=== PATIENT | female | born 1980 | race Caucasian/White ===

== ENCOUNTER 2018-09-02 20:37 | Emergency (ER) | payer MEDICAID ==
[~2018-09-02] VITALS: Ht 162.6 cm; Wt 102.5 kg
[~2018-09-02 20:37] MED LIST: ACHD5005 PO; ALBU17AE3 IH; ALPR.25T PO; ALPR.5T PO; ALPR1T PO; BACL10TA PO; BENZ100C18 PO; CARB100T6 PO; CEFP250T2 PO; CEFP500T4 PO; CEPH-507 PO; CEPH500C PO; CIPR-225 PO; CIPR500T78 PO; CLC500CT PO; CLON0.5T2 PO; CLON0.5T3 PO; CYCL10TA9 PO; DICY20TA57 PO; DOCU100C37 PO; DULO30CA PO; EFFEXOR; ESCI10TA48 PO; FAMO-106 PO; FLUO40CA PO; GABA-488 PO; GFN600TCR PO; HCT25T PO; HYDR-1231 PO; HYDR-2890 PO; HYDR-34 PO; HYDR-3720; HYDR-3720 PO; HYDR-623 PO; HYDR118S10 PO; HYDR1CAP2 PO; HYDR1TAB PO; HYDR1TAB8 OP; IBUP-1773 PO; LMT25T PO; LORA-404 PO; LORA10CA PO; LRT10T PO; LURA80TA PO; METH4TAB PO; METR500T PO; MONISTAT7 VG; MPR22T TP; NAPR-243 PO; NAPR550T PO; NITR-65 PO; OLAN10TA4 PO; ONDA-42 SL; ONDA4TAB8 PO; ONDA4TAB8 SL; ONDA8TAB13 PO; ONDA8TAB9 PO; OXYC15TA73; OXYC1TAB87 PO; OXYC20TA14 PO; OXYC20TA4 PO; OXYC40TA49 PO; PARO10TA81 PO; PARO40TA2 PO; PHEN200T27 PO; PHEN37.555 PO; POTASS PO; PRAZ1CAP2 PO; PRAZ2CAP2 PO; PRD5T PO; PRM25T PO; PROM25TA14 PO; QUET50TA49 PO; RISP2TAB3 PO; RNT150T PO; Risperdal; SIME80TA16 PO; SULF1TAB35 PO; SULF1TAB38 PO; TRAM50TA2 PO; TRAZ150T72 PO; TRZ50T PO; Throat Lozenges MT; ZLP10T PO; ZLP5T PO; [UNRECOGNIZED DRUG - REMARK]
[2018-09-02 23:04] LABS: BILIRUBIN,URINE NEGATIVE (NEGATIVE); CLARITY,URINE CLEAR; COLOR,URINE YELLOW; GLUCOSE, URINE (UA) NEGATIVE (NEGATIVE); KETONES,URINE NEGATIVE (NEGATIVE); LEUKOCYTE ESTERASE ,URINE NEGATIVE (NEGATIVE); NITRITE,URINE NEGATIVE (NEGATIVE); PH,URINE 6 (5-9); PROTEIN,URINE 1+ (NEGATIVE); UROBILINOGEN,URINE NORMAL (NORMAL)
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
[2018-09-02 23:18] LABS: BACTERIA,URINE LARGE /HPF; SQUAMOUS EPITHELIAL CELL,UR TNTC /HPF
[2018-09-02 23:45] VITALS: BP 138/99
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
== END 2018-09-02 23:46 | disposition home or self-care (01) ==
LOC: EDUNIT# 20:37 → ER 20:40
DX: S09.90XA Unspecified injury of head, initial encounter (principal); G43.909 Migraine, unspecified, not intractable, without status migrainosus; E11.9 Type 2 diabetes mellitus without complications; F32.9 Major depressive disorder, single episode, unspecified; R40.2142 Coma scale, eyes open, spontaneous, at arrival to emergency department; R40.2252 Coma scale, best verbal response, oriented, at arrival to emergency department; R40.2362 Coma scale, best motor response, obeys commands, at arrival to emergency department; F17.210 Nicotine dependence, cigarettes, uncomplicated; Z90.710 Acquired absence of both cervix and uterus; Z87.442 Personal history of urinary calculi; Z82.49 Family history of ischemic heart disease and other diseases of the circulatory system; Z80.0 Family history of malignant neoplasm of digestive organs; Z87.448 Personal history of other diseases of urinary system; Z90.89 Acquired absence of other organs; Z88.5 Allergy status to narcotic agent; Z91.041 Radiographic dye allergy status; Y08.89XA Assault by other specified means, initial encounter
CPT/HCPCS: 70450; 72125; 81000

== ENCOUNTER 2018-09-08 01:40 | Emergency (ER) | payer MEDICAID ==
[~2018-09-08] VITALS: Ht 162.6 cm; Wt 103.4 kg
[2018-09-08] MEDS ORDERED: KETOROLAC 30 MG/ML VIAL IM ONE (02:00)
[2018-09-08] MEDS ORDERED: PROMETHAZINE INJ 25 MG/ML (PHENERGAN) AMP IM ONE (02:00)
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
[2018-09-08 02:08] VITALS: BP 134/107
== END 2018-09-08 02:08 | disposition home or self-care (01) ==
LOC: EDUNIT# 01:40 → ER 01:41
DX: R51 Headache (principal); E11.9 Type 2 diabetes mellitus without complications; F32.9 Major depressive disorder, single episode, unspecified; F15.10 Other stimulant abuse, uncomplicated; F17.210 Nicotine dependence, cigarettes, uncomplicated; Z87.448 Personal history of other diseases of urinary system; Z82.49 Family history of ischemic heart disease and other diseases of the circulatory system; Z80.0 Family history of malignant neoplasm of digestive organs; Z87.442 Personal history of urinary calculi; Z90.710 Acquired absence of both cervix and uterus; Z88.5 Allergy status to narcotic agent; Z91.041 Radiographic dye allergy status
CPT/HCPCS: 84703; 96372; 99284

== ENCOUNTER 2019-01-02 17:58 | Emergency (ER) | payer MEDICAID ==
[~2019-01-02] VITALS: Ht 162.6 cm; Wt 107.0 kg
[2019-01-02] MEDS ORDERED: ONDANSETRON 4 MG/2 ML (SDV) Z0FRAN IVP ONE (18:15)
[2019-01-02] MEDS ORDERED: LACTATED RINGERS 1,000 ML IV SCH (18:15)
[2019-01-02 18:23] LABS: BASOPHILS % (AUTO) 0 % (0-10); EOSINOPHILS # (AUTO) 0.3 10^3/uL (0.0-0.3); EOSINOPHILS % (AUTO) 2 % (0-10); HEMATOCRIT 38 % (35-52); HEMOGLOBIN 12.6 G/DL (11.5-16.0); LYMPHOCYTES % (AUTO) 22 % (12-44); MEAN CORPUSCULAR HEMOGLOBIN 31 PG (25-34); MEAN CORPUSCULAR HGB CONC 33 G/DL (32-36); MEAN CORPUSCULAR VOLUME 92 FL (80-99); MEAN PLATELET VOLUME 9.5 FL (7.4-10.4); MONOCYTES % (AUTO) 7 % (0-12); NEUTROPHILS # (AUTO) 9.6 X 10^3 (1.8-7.8); NEUTROPHILS % (AUTO) 69 % (42-75); PLATELET COUNT 381 10^3/uL (130-400); RED CELL DISTRIBUTION WIDTH 13.1 % (10.0-14.5); WHITE BLOOD COUNT 13.8 10^3/uL (4.3-11.0)
--- NOTE | 2019-01-02 18:36 | ED Abdominal Pain ---
General Chief Complaint: Abdominal/GI Problems Stated Complaint: VOMITING,BODY ACHES Source of Information: Patient Exam Limitations: No Limitations History of Present Illness Date Seen by Provider: Jan 02, 2019 Time Seen by Provider: 18:35 Initial Comments To ER with reports of nausea without vomiting since yesterday, body aches. She has left breast redness and swelling after injecting methamphetamine into one of the veins on her breast 3-4 days ago. Timing/Duration: 1-2 Days Severity/Quality: Moderate Radiation: No Radiation Activities at Onset: None Associated Symptoms: No Fever/Chills; Nausea/Vomiting Allergies and Home Medications Allergies Coded Allergies: codeine (Verified Allergy, Unknown, NAUSEA, 01/10/16) Iodinated Contrast Media - IV Dye (Verified Adverse Reaction, Mild, ITCHING, 12/09/11) Home Medications Cephalexin 500 Mg Capsule, 500 MG PO QID Prescribed by: CHARITY HOOKER on 01/02/191932 Gabapentin 300 Mg Capsule, 300 MG PO TID, (Reported) Hydrocodone/Acetaminophen 1 Each Tablet, 1 EACH PO Q6H PRN for PAIN-MODERATE Do not fill unless Bactrim and Keflex is also filled Prescribed by: CHARITY HOOKER on 01/02/191932 Paroxetine HCl 10 Mg Tablet, 40 MG PO DAILY, (Reported) Promethazine HCl 25 Mg Tablet, 25 MG PO Q8H PRN for NAUSEA/VOMITING Prescribed by: KYLER OSEGUERA on 07/12/16 1309 Sulfamethoxazole/Trimethoprim 1 Each Tablet, 1 EACH PO BID Prescribed by: CHARITY HOOKER on 01/02/191932 Patient Home Medication List Home Medication List Reviewed: Yes Review of Systems Review of Systems Constitutional: see HPI, malaise EENTM: No Symptoms Reported Respiratory: No Symptoms Reported Cardiovascular: No Symptoms Reported Gastrointestinal: See HPI, Nausea, Vomiting Genitourinary: No Symptoms Reported Musculoskeletal: no symptoms reported Skin: see HPI Psychiatric/Neurological: No Symptoms Reported Endocrine: No Symptoms Reported Past Pibfjim-Lezekp-Zgquja Hx Patient Social History Alcohol Use: Denies Use Recreational Drug Use: Yes (PREVIOUS IV METH) Drug of Choice: Meth Smoking Status: Current Everyday Smoker Type Used: Cigarettes 2nd Hand Smoke Exposure: Yes Recent Foreign Travel: No Contact w/Someone Who Travel: No Recent Hopitalizations: No () Physical Abuse: No Sexual Abuse: No Mistreated: No Fear: No Immunizations Up To Date Tetanus Booster (TDap): Less than 5yrs Date of Pneumonia Vaccine: Aug 26, 2014 Date of Influenza Vaccine: Nov 09, 2015 Seasonal Allergies Seasonal Allergies: No Past Medical History Surgeries: Yes (CYST OFF WRIST, CYST OFF OVARY) Adenoidectomy, Hysterectomy, Tonsillectomy Respiratory: No Cardiac: No Neurological: No Headaches /Migraines Reproductive Disorders: No 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 Gastrointestinal: No Musculoskeletal: No Degenerate Disk Disease, Back Injury, Chronic Back Pain Endocrine: No Diabetes, Non-Insulin dep Cancer: No Psychosocial: Yes Depression Integumentary: No Blood Disorders: No Family Medical History Alcoholism 19 FATHER 19 MOTHER Arthritis 19 MOTHER GRANDPARENTS Cardiovascular disease GRANDPARENTS Colon cancer GRANDPARENTS Diabetes mellitus 19 MOTHER Drug abuse 19 FATHER 19 MOTHER G8 BROTHER Myocardial infarction GRANDPARENTS No Pertinent Family Hx Physical Exam Vital Signs Vital Signs - First Documented 01/02/19 18:26 Temp 97.8 Pulse 78 Resp 20 B/P (MAP) 128/86 (100) Pulse Ox 99 Capillary Refill : Height/Weight/BMI Height: 5'4.00" Weight: 228lbs. 5.0oz. 103.478868yd; 39.60 BMI Method:Stated General Appearance: WD/WN, no apparent distress HEENT: PERRL/EOMI, normal ENT inspection Neck: non-tender, full range of motion Respiratory: no respiratory distress, no accessory muscle use Cardiovascular: regular rate, rhythm, no murmur Gastrointestinal: normal bowel sounds, non tender, soft, other Extremities: normal range of motion, non-tender Neurologic/Psychiatric: alert, normal mood/affect, oriented x 3 Skin: normal color, warm/dry, other (left breast at about the 9:00 to 12:00 position is erythematous. This is about 2 cm superior and medial to the superior and medial border of the areola. This area of erythema measures about 14 x 12 cm. Within the middle is a palpable area of fluctuance.) Exam Comments During the entire breast exam and during the incision and drainage procedure, Myra MURRAY was at the bedside. Procedures/Interventions I&D : Blade Size: 11 Packing/Drain: 1/4 [place] Drain Progress Area over the maximum fluctuance was anesthetized with 3 mL of 1% lidocaine without epinephrine. An 11 blade scalpel was then used to make an incision over this area. A large amount of serosanguineous and not terribly purulent looking material expressed. Culture of this was collected and sent to lab. Any loculations were broken up with curved hemostat. Area was irrigated with 20 mL of iodine/saline solution. We do not have a [place] drain available at this time so a section of 16 [place] Espinal catheter was cut and placed into the wound to serve as a drain. This was sutured into place with 1 size 4-0 Ethilon. Progress/Results/Core Measures Results/Orders Lab Results Laboratory Tests Test 01/02/19 18:16 01/02/19 19:43 Range/Units White Blood Count 13.8 H 4.3-11.0 10^3/uL Red Blood Count 4.09 L 4.35-5.85 10^6/uL Hemoglobin 12.6 11.5-16.0 G/DL Hematocrit 38 35-52 % Mean Corpuscular Volume 92 80-99 FL Mean Corpuscular Hemoglobin 31 25-34 PG Mean Corpuscular Hemoglobin Concent 33 32-36 G/DL Red Cell Distribution Width 13.1 10.0-14.5 % Platelet Count 381 130-400 10^3/uL Mean Platelet Volume 9.5 7.4-10.4 FL Neutrophils (%) (Auto) 69 42-75 % Lymphocytes (%) (Auto) 22 12-44 % Monocytes (%) (Auto) 7 0-12 % Eosinophils (%) (Auto) 2 0-10 % Basophils (%) (Auto) 0 0-10 % Neutrophils # (Auto) 9.6 H 1.8-7.8 X 10^3 Lymphocytes # (Auto) 3.0 1.0-4.0 X 10^3 Monocytes # (Auto) 1.0 0.0-1.0 X 10^3 Eosinophils # (Auto) 0.3 0.0-0.3 10^3/uL Basophils # (Auto) 0.0 0.0-0.1 10^3/uL Sodium Level 138 135-145 MMOL/L Potassium Level 4.2 3.6-5.0 MMOL/L Chloride Level 102 98-107 MMOL/L Carbon Dioxide Level 24 21-32 MMOL/L Anion Gap 12 5-14 MMOL/L Blood Urea Nitrogen 17 7-18 MG/DL Creatinine 0.66 0.60-1.30 MG/DL Estimat Glomerular Filtration Rate > 60 BUN/Creatinine Ratio 26 Glucose Level 90 70-105 MG/DL Calcium Level 9.1 8.5-10.1 MG/DL Corrected Calcium 9.0 8.5-10.1 MG/DL Total Bilirubin 0.7 0.1-1.0 MG/DL Aspartate Amino Transf (AST/SGOT) 14 5-34 U/L Alanine Aminotransferase (ALT/SGPT) 15 0-55 U/L Alkaline Phosphatase 60 40-136 U/L Total Protein 6.9 6.4-8.2 GM/DL Albumin 4.1 3.2-4.5 GM/DL Serum Test, Qualitative NEGATIVE NEGATIVE Urine Color YELLOW Urine Clarity VERY CLOUDY H Urine pH 5 5-9 Urine Specific [place] 1.025 H 1.016-1.022 Urine Protein 2+ H NEGATIVE Urine Glucose (UA) NEGATIVE NEGATIVE Urine Ketones 1+ H NEGATIVE Urine Nitrite NEGATIVE NEGATIVE Urine Bilirubin NEGATIVE NEGATIVE Urine Urobilinogen NORMAL NORMAL MG/DL Urine Leukocyte Esterase 1+ H NEGATIVE Urine RBC (Auto) NEGATIVE NEGATIVE Urine RBC NONE /HPF Urine WBC 2-5 /HPF Urine Squamous Epithelial Cells 25-50 H /HPF Urine Crystals NONE /LPF Urine Bacteria FEW H /HPF Urine Casts NONE /LPF Urine Mucus LARGE H /LPF Urine Culture Indicated NO Urine Opiates Screen NEGATIVE NEGATIVE Urine Oxycodone Screen NEGATIVE NEGATIVE Urine Methadone Screen NEGATIVE NEGATIVE Urine Propoxyphene Screen NEGATIVE NEGATIVE Urine Barbiturates Screen NEGATIVE NEGATIVE Ur Tricyclic Antidepressants Screen NEGATIVE NEGATIVE Urine Phencyclidine Screen NEGATIVE NEGATIVE Urine Amphetamines Screen POSITIVE H NEGATIVE Urine Methamphetamines Screen POSITIVE H NEGATIVE Urine Benzodiazepines Screen NEGATIVE NEGATIVE Urine Cocaine Screen NEGATIVE NEGATIVE Urine Cannabinoids Screen NEGATIVE NEGATIVE My Orders Orders - CHARITY HOOKER APRN Ua Culture If Indicated (01/02/19 18:07) Cbc With Automated Diff (01/02/19 18:07) Hcg,Qualitative Serum (01/02/19 18:07) Drug Screen Stat (Urine) (01/02/19 18:07) Comprehensive Metabolic Panel (01/02/19 18:07) Iv Heplock-Insert (Order) (01/02/19 18:07) Lactated Ringers (Lr 1000 Ml Iv Solution (01/02/19 18:15) Ondansetron Injection (Zofran Injectio (01/02/19 18:15) Wound Culture (01/02/19 19:05) Blood Culture (01/02/19 19:06) Ceftriaxone For Iv Use (Rocephin For I (01/02/19 19:15) Sulfamethoxazole/Trimet Ds Tab (Bactrim (01/02/19 19:15) Rx-Hydrocodone/Apap 5-325 Mg (Rx-Vicodin (01/02/19 19:45) Rx-Ondansetron Po (Rx-Zofran Po) (01/02/19 20:50) Medications Given in ED Current Medications Medications Dose Ordered Sig/Blanca Route Start Time Stop Time Status Last Admin Dose Admin Acetaminophen/ Hydrocodone Bitart 1 ea Q4H PRN PO 01/02/19 19:45 01/02/19 19:56 1 EA Ceftriaxone Sodium 1000 mg/ Sterile Water 10 ml @ 200 mls/hr ONCE ONCE IV 01/02/19 19:15 01/02/19 19:17 DC 01/02/19 20:30 200 MLS/HR Ondansetron HCl 4 mg STK-MED ONCE .ROUTE 01/02/19 20:50 01/02/19 20:55 DC 01/02/19 20:59 4 MG Ondansetron HCl 8 mg ONCE ONCE IVP 01/02/19 18:15 01/02/19 18:16 DC 01/02/19 18:22 8 MG Trimethoprim/ Sulfamethoxazole 1 ea ONCE ONCE PO 01/02/19 19:15 01/02/19 19:16 DC 01/02/19 20:30 1 EA Vital Signs/I&O 01/02/19 18:26 Temp 97.8 Pulse 78 Resp 20 B/P (MAP) 128/86 (100) Pulse Ox 99 Departure Impression Primary Impression: Cellulitis of breast Additional Impression: Abscess of breast Disposition: HOME, SELF-CARE Condition: Stable Departure-Patient Inst. Decision time for Depature: 19:30 Referrals: [facility] (PCP/Family) Primary Care Physician Patient Instructions: Cellulitis (Skin Infection), Adult (DC) Add. Discharge Instructions: 1. Return to ER for any concerns 2. Return to the emergency room on Sunday or recheck. Return to ER before then if you develop high fevers or other worsening symptoms. Expect to have to change the dressing several times daily in the meantime, we expect drainage from this. The drainage should change from bloody-appearing today to a more clear liquid over the next couple of days. Return to ER if it becomes more bloody or large volume of plain blood. Return to ER for any fevers. Take the antibiotics as directed. You will need to start these tomorrow morning and this will not get better without the antibiotics. The pain medication as directed. You may shower allowing water run over this area. All discharge instructions reviewed with patient and/or family. Voiced understanding. Scripts Hydrocodone/Acetaminophen ([place] 5-325 Tablet) 1 Each Tablet 1 EACH PO Q6H PRN for PAIN-MODERATE MDD 10, #10 TAB Do not fill unless Bactrim and Keflex is also filled Prov: CHARITY HOOKER APRN 01/02/19 Cephalexin (Keflex) 500 Mg Capsule 500 MG PO QID, #28 CAP Prov: CHARITY HOOKER APRN 01/02/19 Sulfamethoxazole/Trimethoprim (Bactrim Ds Tablet) 1 Each Tablet 1 EACH PO BID, #20 TAB Prov: CHARITY HOOKER APRN 01/02/19 Images Female/Male 1 - Cellulitis, Edema CHARITY HOOKER APRN Jan 02, 2019 18:36
[2019-01-02 18:39] LABS: ALANINE AMINOTRANSFERASE 15 U/L (0-55); ALBUMIN 4.1 GM/DL (3.2-4.5); ALKALINE PHOSPHATASE 60 U/L (40-136); BILIRUBIN,TOTAL 0.7 MG/DL (0.1-1.0); BUN/CREATININE RATIO 26; CALCIUM 9.1 MG/DL (8.5-10.1); CARBON DIOXIDE 24 MMOL/L (21-32); CHLORIDE 102 MMOL/L (98-107); CREATININE SERUM 0.66 MG/DL (0.60-1.30); GFR ESTIMATED > 60; GLUCOSE 90 MG/DL (70-105); POTASSIUM 4.2 MMOL/L (3.6-5.0); SODIUM 138 MMOL/L (135-145); TOTAL PROTEIN 6.9 GM/DL (6.4-8.2)
[2019-01-02] MEDS ORDERED: TRIM/SULFAMETH 160/800 (SEPTRA DS) TAB PO ONE (19:15)
[2019-01-02] MEDS ORDERED: cefTRIAXone FOR IV USE 1,000 MG in WATER (STERILE) FOR INJECTION 10 ML IV ONE (19:15)
--- OUTSIDE RECORDS SUMMARY | 2019-01-02 19:20 | XMS REPORT ---
Author Author VICKI LOPEZ Organization [facility] Address [address] [place] [address] Care Team Providers Care Leaf Stamper Name Role Phone VICKI LOPEZ Unavailable PROBLEMS Type Condition ICD9-CM Code YOM87-SN Code Onset Dates Condition Status SNOMED Code Problem History of drug use F19.21 Active 393930144 Problem History of thyroid disorder Z86.39 Active 539098395 Problem Female stress incontinence N39.3 Active 67257731 Problem Uterine prolapse N81.4 Active 32927655 Problem Hyperlipidemia E78.5 Active 18524594 Problem BMI 40.0-44.9, adult Z68.41 Active 891781520 Problem IV drug abuse F19.10 Active Problem Essential hypertension I10 Active 21231243 Problem Neuropathy involving both lower extremities G57.93 Active 968442596 Problem 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 Active 43685930 Problem History of intravenous drug use in remission Z87.898 Active 00819003 Problem Acute mucoid otitis media of left ear H65.112 Active 90202231 ALLERGIES Substance Reaction Event Type Date Status Codeine Sulfate Unknown Drug Allergy Apr, Active ENCOUNTERS Encounter Location Date Diagnosis [facility] [id number] [place] [address] Apr, Poison lex dermatitis L23.7 and BMI 40.0-44.9, adult Z68.41 [facility] [address] [place] [address] Jan, Allergic contact dermatitis due to plants, except food L23.7 and BMI 45.0-49.9, adult Z68.42 [facility] [address] [place] [address]267 Dec, [facility] [id number] [place] [address] 14 Dec, 2017 Dysuria R30.0 ; Acute cystitis without hematuria N30.00 and BMI 45.0-49.9, adult Z68.42 [facility] [place] [id number] [place] [address]54 [address]97 Jun, Abscess L02.91 [facility] [address] [address] Jun, Acute bronchitis J20.9 ; Cellulitis of arm, right L03.113 and IV drug abuse F19.10 [facility] [address] [address] March, Cellulitis of hand, right L03.[address] [address] Jan, Neuropathy involving both lower extremities G57.93 and 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 [address] Nov, [place] [id number] [place] [address]89[address]115 Nov, Essential hypertension I10 ; History of thyroid disorder Z86.39 ; Neuropathy involving both lower extremities G57.93 ; 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 ; History of intravenous drug use in remission Z87.898 and Acute mucoid otitis media of left ear H65.112 [facility] [place] [id number] [place] [address]44 Oct, Dysuria R30.0 and Low back strain, subsequent encounter S39.012D [place] [id number] [place] [address]759- [address]64 Oct, [facility] [address] [id number] Aug, Abscess of arm, right L02.413 [facility] [address] [place] [id number] Aug, Insect bite, infected, initial encounter W57.XXXA [place] [id number] [place] [address] 16 Jun, 2016 Low back pain M54.5 ; History of drug use F19.21 and Nausea with vomiting, unspecified R11.2 [place] [id number] [place] [address]- [address] Jun, Dysuria R30.0 and Rash R21 [place] [id number] [place] [address]4785- [address]38 Nov, [place] [address] [address] Nov, Abdominal cramping R10.9 ; Low back pain M54.5 ; Dysmenorrhea N94.6 ; Urinary frequency R35.0 ; Dysuria R30.0 ; Cervical motion tenderness N94.9 ; Uterine prolapse N81.4 ; Unprotected sexual intercourse Z72.51 ; BMI 40.0-44.9, adult Z68.41 ; History of drug use F19.21 ; Right lower quadrant pain R10.31 ; Screening for malignant neoplasm of cervix Z12.4 and Routine screening for STI (sexually transmitted infection) Z11.3 [place] [id number] [place] [address] 80921- 7877 Jun, Cough 786.2 ; Tobacco abuse 305.1 ; Muscle spasm of back 724.8 and Dysuria 788.1 [place] [id number] [place] [address]53- 6758 May, [place] [address] [address] May, [place] [address] [address] May, Lumbar back pain 724.2 ; Malaise and fatigue 780.79 ; Diarrhea 787.91 ; Fever chills 780.60 and Nausea & vomiting 787.01 [place] [id number] [place] [address]78- 7457 March, [facility] [address] [address] March, [facility] [address] [address] March, Lumbar back pain 724.2 ; Insomnia 780.52 ; Depression with anxiety 300.4 ; Hypertension 401.9 and Drug addiction 304.90 [facility] [id number] [address] March, Screening for malignant neoplasm of the cervix V76.2 ; Other and unspecified hyperlipidemia 272.4 and Other specified hypoglycemia 251.1 [facility] [address] [id number] March, UTI (urinary tract infection) 599.0 [facility] [address] [address] March, [facility] [address] [address] Feb, [facility] [address] [address] Feb, [facility] [address] [address] Jan, [facility] [address] [address] Jan, [facility] [address] [address] Oct, [facility] [id number] [address] Oct, [facility] [address] [address] 8[address] Sep, [facility] [id number] [address] Sep, [facility] [address] [place] [address], [place] [address] 07 Sep, 2013 [facility] [place] [facility] [address] [id number] [place] [address] 9906 07 Sep, 2013 [facility] [place] [facility] [address] [id number] [place] 20 Aug, 2013 [facility] [place] [facility] [address] [id number] [place] [address]- 4173 20 Aug, 2013 [facility] [place] [facility] [address] [id number] [place] [address] 16 Aug, 2013 [facility] [place] [facility] [address] [id number] [place] [address]- 9026 16 Aug, 2013 [facility] [place] [facility] [address] [id number] [place] [address]- 6750 16 Aug, 2013 [facility] [place] [facility] [address] [id number] [place] [address]- 4506 16 Aug, 2013 [facility] [place] [facility] [address] [id number] [place] [address]- 4804 14 Aug, 2013 [facility] [place] [facility] [address] [id number] [place] [address]- 4766 14 Aug, 2013 [facility] [place] [facility] [address] [id number] [place] [address]- 7742 07 Aug, 2013 [facility] [place] [facility] [address] [id number] [place] [address]- 0950 07 Aug, 2013 [facility] [place] [facility] [address] [id number] [place] [address]- 6059 06 Aug, 2013 [facility] [place] [facility] [address] [id number] [place] [address]- 1466 06 Aug, 2013 [facility] [place] [facility] [address] [id number] [place] [address]- 3253 30 Jul, 2013 [facility] [place] [facility] [address] [id number] [place] [address]- 8069 30 Jul2013 [facility] [place] [facility] [address] [id number] [place] [address]- 0899 Jul, [facility] [place] [facility] [address] [id number] [place] [address] Jul, [facility] [place] [facility] [address] [id number] [place] [address]- 5134 Jan, [facility] [place] [facility] [address] [id number] [place] [address]- 4185 Dec, [facility] [place] [facility] [address] [id number] [place] [address]- 2980 Sep, [facility] [place] [facility] [address] [id number] [place] [address]- 3741 Sep, [facility] [place] [facility] [address] [facility] [id number] [place] [address]- 0112 Sep, [facility] [place] [facility] [address] [facility] [id number] [place] [address]- 1415 Aug, [facility] [place] [facility] [address] [id number] [place] [address] 1962 Aug, [facility] [place] [facility] [address] [facility] [id number] [place] [address]- 8453 Aug, [facility] [place] [facility] [address] [facility] [id number] [place] [address]- 2974 Aug, [facility] [place] [facility] [address] [id number] [place] [address]- 4286 Aug, [facility] [place] [facility] [address] [id number] [place] [address]- 0054 Jul, [facility] [place] [facility] [address] [id number] [place] [address]- 3104 18 Jul, 2012 [facility] [place] [facility] [address] [id number] [place] [address]- 3682 Jun, [facility] [place] [facility] [address] [id number] [place] [address]- 8296 May, [facility] [address] [id number] [place] [address]- 7392 Apr, [facility] [place] [facility] [address] [id number] [place] [address]- 6576 Apr, [facility] [place] [facility] [address] [id number] [place] [address]- 6416 Dec, [facility] [place] [facility] [address] [id number] [place] [address]- 9547 Nov, [facility] [address] [id number] [place] [address]- 7768 Nov, [facility] [place] [facility] [address] [id number] [place] [address]- 9445 Oct, [facility] [place] [facility] [address] [id number] [place] [address]- 3883 Oct, [facility] [place] [facility] [address] [id number] [place] [address]- 1560 Oct, [facility] [place] [facility] [address] [id number] [place] [address]- 1239 Oct, [facility] [place] [facility] [address] [id number] [place] [address]- 8641 Oct, [facility] [place] [facility] [address] [id number] [place] [address]- 7771 Oct, [facility] [place] [facility] [address] [id number] [place] [address]- 8173 Oct, [facility] [place] [facility] [address] [id number] [place] [address]- 8186 Oct, [facility] [place] [facility] [address] [id number] [place] [address]- 9207 Oct, [facility] [place] [facility] [address] [id number] [place] [address]- 9873 Sep, [facility] [place] [facility] [address] [facility] [id number] [address]- 7916 Sep, [facility] [id number] [address] Sep, [facility] [address] [address]- [address] Sep, [facility] [address] [place] [address]- [address] Aug, [facility] [address] May, [place] [address] [place] [address]87- 2725 Apr, IMMUNIZATIONS Vaccine Route Administration Date Status SOLUMEDROL (UP TO 125 MG) IM Intramuscular May 03, 2018 Administered SOCIAL HISTORY Never Assessed REASON FOR VISIT bianca Regan PLAN OF CARE Activity Details Follow Up 1 Week, prn Reason:if symptoms worsen or not improving VITAL SIGNS Height 64 in 2018-05-03 Weight 235.8 lbs 2018-05-03 Temperature 98.1 degrees Fahrenheit 2018-05-03 Heart Rate 92 bpm 2018-05-03 Respiratory Rate 20 2018-05-03 BMI 40.47 kg/m2 2018-05-03 Blood pressure systolic 122 mmHg 2018-05-03 Blood pressure diastolic 70 mmHg 2018-05-03 MEDICATIONS Medication Instructions Dosage Frequency Start Date End Date Duration Status Rexulti 0.5 MG Orally Once a day 1 tablet 24h Active Trazodone HCl 100 MG Orally Once a day 1 tablet at bedtime 24h Not -Taking Paxil 40 MG Orally Once a day 1 tablet by Oral route 1 time per day 24h Jan, 30 days Active Gabapentin 100 mg Orally Three times a day 2 capsule 8h 90 Not- Taking ProAir HFA 108 (90 Base) MCG/ACT Inhalation every 4 hrs 2 puffs as needed 4h Jun, 15 days Not-Taking HydrOXYzine HCl 50 MG Orally Once a day at night prn 1 tablet as needed 30 Not-Taking RESULTS No Results PROCEDURES Procedure Date Ordered Result Body Site SOLUMEDROL (UP TO 125 MG) May 03, 2018 THER/PROPH/DIAG INJ, SC/IM May 03, 2018 INSTRUCTIONS MEDICATIONS ADMINISTERED No Known Medications MEDICAL (GENERAL) HISTORY Type Description Date Medical History hyperlipidemia Medical History stress urinary incontinence Medical History cystocele Medical History borderline personality disorder Medical History panic and mood disorder Medical History depression Medical History PTSD Medical History hypoglycemia Medical History thyroid disorder Medical History bipolar disorder Medical History IV METH ABUSE Surgical History tonsillectomy Surgical History ovarian cyst resection Surgical History dilatation and curettage Surgical History hysterectomy(partial) and reconstruction of the bowel and bladder 12/2015 Hospitalization History surgeries
--- OUTSIDE RECORDS SUMMARY | 2019-01-02 19:20 | XMS REPORT ---
Author Author HODA WYLIE [facility] Address [address] [place] [address] Care Team Providers Care Heating Unit Mechanic Name Role Phone HODA WYLIE Unavailable PROBLEMS Type Condition ICD9-CM Code APY20-JY Code Onset Dates Condition Status SNOMED Code Problem History of drug use F19.21 Active 178024789 Problem History of thyroid disorder Z86.39 Active 732837677 Problem Female stress incontinence N39.3 Active 00847973 Problem Uterine prolapse N81.4 Active 02560943 Problem Hyperlipidemia E78.5 Active 91682504 Problem BMI 40.0-44.9, adult Z68.41 Active 146535929 Problem IV drug abuse F19.10 Active Problem Essential hypertension I10 Active 28037732 Problem Neuropathy involving both lower extremities G57.93 Active 263977964 Problem 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 Active 66523224 Problem History of intravenous drug use in remission Z87.898 Active 82217186 Problem Acute mucoid otitis media of left ear H65.112 Active 88241506 ALLERGIES Substance Reaction Event Type Date Status Codeine Sulfate Unknown Drug Allergy Oct, Active ENCOUNTERS Encounter Location Date Diagnosis [facility] [id number] [address] Oct, Vaginitis N76.0 ; BMI 40.0-44.9, adult Z68.41 and Dysuria R30.0 [facility] [address] [id number] [address] Apr, Poison lex dermatitis L23.7 and BMI 40.0-44.9, adult Z68.41 [facility] [address] [facility] [id number] [address] Jan, Allergic contact dermatitis due to plants, except food L23.7 and BMI 45.0-49.9, adult Z68.42 [id number] [place] [address] 14 Dec, 2017 [facility] [address] [address] 14 Dec, 2017 Dysuria R30.0 ; Acute cystitis without hematuria N30.00 and BMI 45.0-49.9, adult Z68.42 [facility] [address] [address] 11 Jun, 2017 Abscess L02.91 [facility] [address] [address] Jun, Acute bronchitis J20.9 ; Cellulitis of arm, right L03.113 and IV drug abuse F19.10 [facility] [address] [address] March, Cellulitis of hand, right L03.[address] [address] Jan, Neuropathy involving both lower extremities G57.93 and 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 [address] Nov, [id number] [place] [address] Nov, Essential hypertension I10 ; History of thyroid disorder Z86.39 ; Neuropathy involving both lower extremities G57.93 ; 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 ; History of intravenous drug use in remission Z87.898 and Acute mucoid otitis media of left ear H65.112 [facility] [address] [address] Oct, Dysuria R30.0 and Low back strain, subsequent encounter S39.012D [address] [address] Oct, [facility] [address] [place] [id number] Aug, Abscess of arm, right L02.413 [address] [place] [id number] Aug, Insect bite, infected, initial encounter W57.XXXA [address], [place] [address] Jun, Low back pain M54.5 ; History of drug use F19.21 and Nausea with vomiting, unspecified R11.2 [id number] [place] [address] Jun, Dysuria R30.0 and Rash R21 [id number] [place] [address] Nov, [id number] [place] [address] Nov, Abdominal cramping R10.9 ; Low back [...] screening for STI (sexually transmitted infection) Z11.3 [address] [place] [address] Jun, Cough 786.2 ; Tobacco abuse 305.1 ; Muscle spasm of back 724.8 and Dysuria 788.1 [address] [id number] [place] [address] May, [address] [place] [id number] [place] [address] May, [address] [id number] [place] [address] May, Lumbar back pain 724.2 ; Malaise and fatigue 780.79 ; Diarrhea 787.91 ; Fever chills 780.60 and Nausea & vomiting 787.01 [facility] [address] [place] [address] March, [facility] [id number] [place] [address] March, [facility] [id number] [place] [address] March, Lumbar back pain 724.2 ; Insomnia 780.52 ; Depression with anxiety 300.4 ; Hypertension 401.9 and Drug addiction 304.90 [facility] [id number] [place] [address] March, Screening for malignant neoplasm of the cervix V76.2 ; Other and unspecified hyperlipidemia 272.4 and Other specified hypoglycemia 251.1 [facility] [address] [place] [id number] March, UTI (urinary tract infection) 599.0 [facility] [address] [place] [address] March, [facility] [id number] [place] [address] Feb, [facility] [address], [place] [address] Feb, [facility] [id number] [place] [address] Jan, [facility] [address] [place] [address] Jan, [facility] [id number] [place] [address] Oct, [facility] [address] [address] Oct, [facility] [id number] [place] [address] Sep, [facility] [place] [facility] [address] [id number] [place] [address] Sep, [facility] [place] [facility] [address] [id number] [place] [address] Sep, [facility] [place] [facility] [address] [id number] [place] [address] Sep, [facility] [place] [facility] [address] [id number] [place] [address] Aug, [facility] [place] [facility] [address] [id number] [place] [address] 20 Aug, 2014 [facility] [place] [facility] [address] [id number] [place] [address] 16 Aug, 2014 [facility] [place] [facility] [address] [id number], [place] [address] 16 Aug, 2014 [facility] [place] [facility] [address] [id number], [place] [address] 16 Aug, 2014 [facility] [place] [facility] [address] [id number] [address] 16 Aug, 2014 [facility] [place] [facility] [address] [facility] [id number], [place] [address] Aug, [facility] [place] [facility] [address] [id number], [place] [address] 14 Aug, 2014 [facility] [place] [facility] [address] [id number], [place] [address] Aug, [facility] [place] [facility] [address] [id number], [place] [address] Aug, [facility] [place] [facility] [address] [facility] [id number] [address] Aug, 2013 [facility] [place] [facility] [address] [facility] [id number], [place] [address] Aug, 2013 [facility] [place] [facility] [address] [id number] [place] [address] 30 Jul, 2013 [facility] [place] [facility] [address] [id number] [place] [address] 30 Jul, 2013 [facility] [place] [facility] [address] [id number] [place] [address] 02 Jul, 2013 [facility] [place] [facility] [address] [id number] [place] [address] 02 Jul, 2013 [facility] [place] [facility] [address] [id number] [place] [address] Jan, [facility] [place] [facility] [address] [id number] [place] [address] Dec, [facility] [place] [facility] [address] [id number] [place] [address] Sep, [facility] [place] [facility] [address] [id number] [place] [address] Sep, [facility] [place] [facility] [address] [id number] [place] [address] Sep, [facility] [place] [facility] [address] [id number] [place] [address] Aug, [facility] [place] [facility] [address] [id number] [place] [address] Aug, [facility] [place] [facility] [address] [id number] [place] [address] Aug, [facility] [place] [facility] [address] [id number] [place] [address] Aug, [facility] [place] [facility] [address] [id number] [place] [address] Aug, [facility] [place] [facility] [address] [id number] [place] [address] 19 Jul, 2012 [facility] [place] [facility] [address] [id number] [place] [address] Jul, [facility] [place] [facility] [address] [id number] [place] [address] Jun, [facility] [place] [facility] [address] [id number] [place] [address] May, [facility] [place] [facility] [address] [id number] [place] [address] Apr, [facility] [place] [facility] [address] [id number] [place] [address] Apr, [facility] [place] [facility] [address] [id number] [place] [address] Dec, [facility] [place] [facility] [address] [id number] [place] [address] Nov, [facility] [place] [facility] [address] [id number] [place] [address] Nov, [facility] [place] [facility] [address] [id number] [place] [address] Oct, [facility] [place] [facility] [address] [id number] [place] [address] Oct, [facility] [place] [facility] [address] [id number] [place] [address] Oct, [facility] [place] [facility] [address] [id number] [place] [address] Oct, [facility] [place] [facility] [address] [id number], [place] [address] Oct, [facility] [place] [facility] [address] [id number] [place] [address] Oct, [facility] [place] [facility] [address] [facility] [id number] [place] [address] Oct, [facility] [place] [facility] [address] [id number] [place] [address] Oct, [facility] [place] [facility] [id number], [place] [address] Oct, [facility] [id number], [place] [address] Sep, [facility] [id number], [place] [address] Sep, [facility] [id number], [place] [address] Sep, [facility] [id number] [address] Sep, [facility] [id number] [place] [address] 25[address] Aug, [facility] [id number] [place] [address] 2546 May, [facility] [id number] [place] [address] Apr, IMMUNIZATIONS No Known Immunizations SOCIAL HISTORY Never Assessed REASON FOR VISIT Pt feel pain/ pressure feeling in her lower abdomen and in her lower lumbar region of the back. Pt has had UTI's in the past and she feels as if this is worse at this time. pain rating is 8/10 at this time described as"Sharp pressure pain". Pt has not noticed any blood in her urine or stool at this time. Pt stated pain increases with bowel movements. Pt noticed minor burning at the end of her urine stream.GIOVANNI PLAN OF CARE Activity Details Follow Up We will notify her of test results when available. Recheck here or with PCP if any concerns. To ER if worsens over the weekend. Reason: Pending Test GC/CHLAM URINE (STATE) VITAL SIGNS Height 64 in 2018-11-07 Weight 242.2 lbs 2018-11-07 Temperature 97.4 degrees Fahrenheit 2018-11-07 Heart Rate 90 bpm 2018-11-07 Respiratory Rate 20 2018-11-07 BMI 41.57 kg/m2 2018-11-07 Blood pressure systolic 102 mmHg 2018-11-07 Blood pressure diastolic 60 mmHg 2018-11-07 MEDICATIONS Medication Instructions Dosage Frequency Start Date End Date Duration Status Ciprofloxacin HCl 500 MG Orally every 12 hrs 1 tablet 12h Oct, 5 day(s) Active RESULTS Name Result Date Reference Range TRICHOMONAS (IN HOUSE) 2018-11-07 TRICHOMONAS negative Control + Lot # [id number] Exp date 06/2019 UA LONG DIP (IN HOUSE) 2018-11-07 Lot # [id number] Exp date 08/25/2019 Clarity clear Color dark yellow Odor none GLU negative DAVID negative KET trace SG >=1.030 BLO negative pH 5.5 Protein negative URO 0.2 NIT negative KATE negative Lot # [id number] Exp date 10/2018 BACTERIAL VAGINOSIS (IN HOUSE) 2018-11-07 RESULTS negative Control + Lot # [id number] Exp date 05/2019 PROCEDURES Procedure Date Ordered Result Body Site URINALYSIS, AUTO, W/O SCOPE Nov 07, 2018 Bacterial Vaginosis In House Nov 07, 2018 No Charge Nov 07, 2018 LAB NOT BILLED BY [facility] Nov 07, 2018 INSTRUCTIONS MEDICATIONS ADMINISTERED No Known Medications [...]
--- OUTSIDE RECORDS SUMMARY | 2019-01-02 19:20 | XMS REPORT ---
Author Author ARUNA SANZ Organization [facility] Address [address] [place] [address] Care Team Providers Care Jewelry Cutter Name Role Phone ARUNA SANZ Unavailable PROBLEMS Type Condition ICD9-CM Code MQB86-HL Code Onset Dates Condition Status SNOMED Code Problem History of drug use F19.21 Active 240375616 Problem History of thyroid disorder Z86.39 Active 963926793 Problem Female stress incontinence N39.3 Active 76516004 Problem Uterine prolapse N81.4 Active 32231225 Problem Hyperlipidemia E78.5 Active 35313710 Problem BMI 40.0-44.9, adult Z68.41 Active 471833939 Problem IV drug abuse F19.10 Active Problem Essential hypertension I10 Active 78122992 Problem Neuropathy involving both lower extremities G57.93 Active 618764539 Problem 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 Active 53852847 Problem History of intravenous drug use in remission Z87.898 Active 85028157 Problem Acute mucoid otitis media of left ear H65.112 Active 70541947 ALLERGIES Substance Reaction Event Type Date Status Codeine Sulfate Unknown Drug Allergy Jan, Active ENCOUNTERS Encounter Location Date Diagnosis [facility] [id number], [place] [address] 08 Apr, 2018 Poison lex dermatitis L23.7 and BMI 40.0-44.9, adult Z68.41 [facility] [id number] [place] [address] Jan, Allergic contact dermatitis due to plants, except food L23.7 and BMI 45.0-49.9, adult Z68.42 [facility] [id number], [place] [address] Dec, [facility] [id number] [place] [address] 14 Dec, 2017 Dysuria R30.0 ; Acute cystitis without hematuria N30.00 and BMI 45.0-49.9, adult Z68.42 [facility] [id number] [place] [address] Jun, Abscess L02.91 [facility] [address] [address] Jun, Acute bronchitis J20.9 ; Cellulitis of arm, right L03.113 and IV drug abuse F19.10 [facility] [address] [address] March, Cellulitis of hand, right L03.[address] [address] Jan, Neuropathy involving both lower extremities G57.93 and 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 [address] Nov, [id number] [place] [address] Nov, Essential hypertension I10 ; History of thyroid disorder Z86.39 ; Neuropathy involving both lower extremities G57.93 ; 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 ; History of intravenous drug use in remission Z87.898 and Acute mucoid otitis media of left ear H65.112 [facility] [id number] [place] [address] Oct, Dysuria R30.0 and Low back strain, subsequent encounter S39.[id number] [place] [address] Oct, [facility] [address] [place] [id number] Aug, Abscess of arm, right L02.413 [facility] [address] [place], [place] [id number] Aug, Insect bite, infected, initial encounter W57.XXXA [place] [id number] [place] [address] 16 Jun, 2016 Low back pain M54.5 ; History of drug use F19.21 and Nausea with vomiting, unspecified R11.2 [place] [id number] [place] [address] Jun, Dysuria R30.0 and Rash R21 [place] [id number] [place] [address] Nov, [place] [address] [address] Nov, Abdominal cramping R10.9 ; Low back [...] screening for STI (sexually transmitted infection) Z11.3 [place] [id number] [place] [address] Jun, Cough 786.2 ; Tobacco abuse 305.1 ; Muscle spasm of back 724.8 and Dysuria 788.1 [place] [id number] [place] [address] May, [place] [address] [address] May, [place] [address] [address] May, Lumbar back pain 724.2 ; Malaise and fatigue 780.79 ; Diarrhea 787.91 ; Fever chills 780.60 and Nausea & vomiting 787.01 [place] [id number] [place] [address] March, [facility] [address], [place] [address] March, [facility] [address], [place] [address] March, Lumbar back pain 724.2 ; Insomnia 780.52 ; Depression with anxiety 300.4 ; Hypertension 401.9 and Drug addiction 304.90 [facility] [id number], [place] [address] March, Screening for malignant neoplasm of the cervix V76.2 ; Other and unspecified hyperlipidemia 272.4 and Other specified hypoglycemia 251.1 [facility] [address] [place] [id number] March, UTI (urinary tract infection) 599.0 [facility] [address], [place] [address] March, [facility] [address], [place] [address] Feb, [facility] [address], [place] [address] Feb, [facility] [address], [place] [address] Jan, [facility] [address], [place] [address] Jan, [facility] [address] Oct, [facility] [id number] [address] Oct, [facility] [address], [place] [address] Sep, [facility] [id number] Sep, [facility] [id number] [place] [address], [place] [address] 07 Sep, 2013 [facility] [place] [facility] [address] [id number] [place] [address] 07 Sep, 2013 [facility] [place] [facility] [address] [id number] [place] 20 Aug, 2013 [facility] [place] [facility] [address] [id number] [place] [address] 20 Aug, 2013 [facility] [place] [facility] [address] [id number] [place] 16 Aug, 2013 [facility] [place] [facility] [address] [id number] [place] [address] 16 Aug, 2013 [facility] [place] [facility] [address] [id number] [place] [address] 16 Aug, 2013 [facility] [place] [facility] [address] [id number] [place] [address] 16 Aug, 2013 [facility] [place] [facility] [address] [id number] [place] [address] 14 Aug, 2013 [facility] [place] [facility] [address] [id number] [place] [address] 14 Aug, 2013 [facility] [place] [facility] [address] [id number] [place] [address] 07 Aug, 2013 [facility] [place] [facility] [address] [id number] [place] [address] 07 Aug, 2013 [facility] [place] [facility] [address] [id number] [place] [address] 06 Aug, 2013 [facility] [place] [facility] [address] [id number] [place] [address] 06 Aug, 2013 [facility] [place] [facility] [address] [id number] [place] [address] 30 Jul, 2013 [facility] [place] [facility] [address] [id number] [place] [address] 30 Jul2013 [facility] [place] [facility] [address] [id number] [place] [address] Jul, [facility] [place] [facility] [address] [id number] [place] [address] Jul, [facility] [place] [facility] [address] [id number] [place] [address] Jan, [facility] [place] [facility] [address] [id number] [place] [address] Dec, [facility] [place] [facility] [address] [id number] [place] [address] Sep, [facility] [place] [facility] [address] [id number] [place] [address] Sep, [facility] [place] [facility] [address] [facility] [id number] [place] [address] Sep, [facility] [place] [facility] [address] [facility] [id number] [place] [address] Aug, [facility] [place] [facility] [address] [id number] [place] [address] Aug, [facility] [place] [facility] [address] [facility] [id number] [place] [address] Aug, [facility] [place] [facility] [address] [facility] [id number] [place] [address] Aug, [facility] [place] [facility] [address] [id number] [place] [address] Aug, [facility] [place] [facility] [address] [id number] [place] [address] Jul, [facility] [place] [facility] [address] [id number] [place] [address] 18 Jul, 2012 [facility] [place] [facility] [address] [id number] [place] [address] Jun, [facility] [place] [facility] [address] [id number] [place] [address] May, [facility] [address] [id number] [place] [address] Apr, [facility] [place] [facility] [address] [id number] [place] [address] Apr, [facility] [place] [facility] [address] [id number] [place] [address] Dec, [facility] [place] [facility] [address] [id number] [place] [address] Nov, [facility] [address] [id number] [place] [address] Nov, [facility] [place] [facility] [address] [id number] [place] [address] Oct, [facility] [place] [facility] [address] [id number] [place] [address] Oct, [facility] [place] [facility] [address] [id number] [place] [address] Oct, [facility] [place] [facility] [address] [id number] [place] [address] Oct, [facility] [place] [facility] [address] [id number] [place] [address] Oct, [facility] [place] [facility] [address] [id number] [place] [address]- 90[address] Oct, [facility] [place] [facility] [address] [id number] [place] [address] Oct, [facility] [place] [facility] [address] [id number] [place] [address] Oct, [facility] [place] [facility] [address] [id number] [place] [address] Oct, [facility] [place] [facility] [address] [id number] [place] [address] Sep, [facility] [place] [facility] [address] [facility] [id number], [place] [address] Sep, [facility] [address] [facility] [id number] [address] Sep, [facility] [address], [place] [address] Sep, [facility] [id number] [address] Aug, [facility] [id number] [address] May, [place] [address] [facility] [id number] Apr, IMMUNIZATIONS Vaccine Route Administration Date Status DEXAMETHASONE 4MG/ML (PER 1 MG) IM Intramuscular February 20, 2018 Administered DEPO MEDROL 40 MG/ML IM Intramuscular February 20, 2018 Administered SOCIAL HISTORY Never Assessed REASON FOR VISIT poison lex started over 1 week ago [facility] PLAN OF CARE Activity Details Follow Up prn Reason: VITAL SIGNS Height 64 in 2018-02-20 Weight 263.8 lbs 2018-02-20 Temperature 97.7 degrees Fahrenheit 2018-02-20 Heart Rate 80 bpm 2018-02-20 Respiratory Rate 20 2018-02-20 BMI 45.28 kg/m2 2018-02-20 Blood pressure systolic 120 mmHg 2018-02-20 Blood pressure diastolic 70 mmHg 2018-02-20 MEDICATIONS Medication Instructions Dosage Frequency Start Date End Date Duration Status Rexulti 0.5 MG Orally Once a day 1 tablet 24h Active Gabapentin 100 mg Orally Three times a day 2 capsule 8h 90 Not- Taking Paxil 40 MG Orally Once a day 1 tablet by Oral route 1 time per day 24h Jan, 30 days Active Trazodone HCl 100 MG Orally Once a day 1 tablet at bedtime 24h Not -Taking ProAir HFA 108 (90 Base) MCG/ACT Inhalation every 4 hrs 2 puffs as needed 4h Jun, 15 days Not-Taking HydrOXYzine HCl 50 MG Orally Once a day at night prn 1 tablet as needed 30 Not-Taking RESULTS No Results PROCEDURES Procedure Date Ordered Result Body Site DEPO MEDROL 40 MG/ML February 20, 2018 DEXAMETHASONE 4MG/ML (PER 1 MG) February 20, 2018 THER/PROPH/DIAG INJ, SC/IM February 20, 2018 INSTRUCTIONS MEDICATIONS ADMINISTERED No Known Medications [...]
--- OUTSIDE RECORDS SUMMARY | 2019-01-02 19:21 | XMS REPORT ---
Author Author ALEXYS ORELLANA [facility] Address [address] [place] [address] Care Team Providers Care J2Ee Java Developer Name Role Phone ALEXYS ORELLANA Unavailable PROBLEMS Type Condition ICD9-CM Code NKO39-BL Code Onset Dates Condition Status SNOMED Code Problem History of drug use F19.21 Active 926598191 Problem History of thyroid disorder Z86.39 Active 078486948 Problem Female stress incontinence N39.3 Active 95966817 Problem Uterine prolapse N81.4 Active 08865293 Problem Hyperlipidemia E78.5 Active 34945043 Problem BMI 40.0-44.9, adult Z68.41 Active 973442281 Problem IV drug abuse F19.10 Active Problem Essential hypertension I10 Active 52816892 Problem Neuropathy involving both lower extremities G57.93 Active 901078609 Problem 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 Active 84704558 Problem History of intravenous drug use in remission Z87.898 Active 24969159 Problem Acute mucoid otitis media of left ear H65.112 Active 86468743 ALLERGIES Substance Reaction Event Type Date Status Codeine Sulfate Unknown Drug Allergy Dec, Active ENCOUNTERS Encounter Location Date Diagnosis [facility] [id number] [place] [address] 94431 -5175 08 Apr, 2018 Poison lex dermatitis L23.7 and BMI 40.0-44.9, adult Z68.41 [facility] [address] [place] [address] 53854 -4134 28 Jan, 2018 Allergic contact dermatitis due to plants, except food L23.7 and BMI 45.0-49.9, adult Z68.42 [facility] [address] [place] [address] 06808- 1916 Dec, [facility] [id number] [place] [address] 75698 -6294 14 Dec, 2017 Dysuria R30.0 ; Acute cystitis without hematuria N30.00 and BMI 45.0-49.9, adult Z68.42 [facility] [place] [id number] [place] [address] 88497 -4370 Jun, Abscess L02.91 [facility] [place] [id number] [place] [address] 47366 -6860 Jun, Acute bronchitis J20.9 ; Cellulitis of arm, right L03.113 and IV drug abuse F19.10 [facility] [place] [id number] [place] [address] 24786 -1210 March, Cellulitis of hand, right L03.113 [place] [id number] [place] [address] 73588- 0921 Jan, Neuropathy involving both lower extremities G57.93 and 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 [place] [id number] [place] [address] 97781- 5266 Nov, [place] [id number] [place] [address] 87380- 2685 Nov, Essential hypertension I10 ; History of thyroid disorder Z86.39 ; Neuropathy involving both lower extremities G57.93 ; 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 ; History of intravenous drug use in remission Z87.898 and Acute mucoid otitis media of left ear H65.112 [facility] [place] [id number] [place] [address] 45321 -1580 Oct, Dysuria R30.0 and Low back strain, subsequent encounter S39.012D [address] [address]80- 2680 Oct, [facility] [address] [place] [address] Aug, Abscess of arm, right L02.[address] [id number] Aug, Insect bite, infected, initial encounter W57.XXXA [place] [id number] [place] [address] 56938- 1947 16 Jun, 2016 Low back pain M54.5 ; History of drug use F19.21 and Nausea with vomiting, unspecified R11.2 [place] [address] [id number] [place] [address] 53992- 5400 Jun, Dysuria R30.0 and Rash R21 [place] [address] 67846- 4350 Nov, [place] [address] 70888- 7067 Nov, Abdominal cramping R10.9 ; Low back [...] screening for STI (sexually transmitted infection) Z11.3 [place] [address] 74405- 3863 Jun, Cough 786.2 ; Tobacco abuse 305.1 ; Muscle spasm of back 724.8 and Dysuria 788.1 [place] [address] [place] [address] [id number] [place] [address] 42558- 0813 May, [place] [address] 78775- 6915 May, [place] [address] 10755- 7109 May, Lumbar back pain 724.2 ; Malaise and fatigue 780.79 ; Diarrhea 787.91 ; Fever chills 780.60 and Nausea & vomiting 787.01 [place] [address] 17816- 8826 March, [facility] [address] [id number] [address] March, [facility] [id number] [place] [address] 64720- 4472 March, Lumbar back pain 724.2 ; Insomnia 780.52 ; Depression with anxiety 300.4 ; Hypertension 401.9 and Drug addiction 304.90 [facility] [address] [id number] [address] March, Screening for malignant neoplasm of the cervix V76.2 ; Other and unspecified hyperlipidemia 272.4 and Other specified hypoglycemia 251.1 [facility] [address] [address] March, UTI (urinary tract infection) 599.0 [facility] [address] [address] 4633 March, [facility] [address] [place] [address] 52697- 4937 Feb, [facility] [address] [address] 8795 Feb, [facility] [address] [place] [address] 23228- 6951 Jan, [facility] [address] [address] 1521 Jan, [facility] [address] 1678 Oct, [facility] [address] 9804 Oct, [facility] [address] [address]- 5949 Sep, [facility] [address] [id number] [address] Sep, [facility] [address] [address] 5911 07 Sep, 2013 [facility] [place] [facility] [address] [id number] [place] [address]- 0127 07 Sep, 2013 [facility] [place] [facility] [address] [id number] [place] [address]- 5833 20 Aug, 2013 [facility] [place] [facility] [address] [id number] [place] [address]- 0374 20 Aug, 2013 [facility] [place] [facility] [address] [id number] [place] [address]- 2092 16 Aug, 2013 [facility] [place] [facility] [address] [id number] [place] [address]- 2722 16 Aug, 2013 [facility] [place] [facility] [address] [id number] [place] [address]- 0828 16 Aug, 2013 [facility] [place] [facility] [address] [id number] [place] [address]- 7907 16 Aug, 2013 [facility] [place] [facility] [address] [id number] [place] [address]- 9354 14 Aug, 2014 [facility] [place] [facility] [address] [id number] [place] [address]- 7396 14 Aug, 2014 [facility] [place] [facility] [address] [id number] [place] [address]- 7598 Aug, 2013 [facility] [place] [facility] [address] [id number], [place] [address]- 6363 Aug, 2013 [facility] [place] [facility] [address] [id number], [place] [address] 0514 Aug, [facility] [place] [facility] [address] [id number] [place] [address]- 1893 06 Aug, 2014 [facility] [place] [facility] [address] [id number] [place] [address]42 30 Jul, 2013 [facility] [place] [facility] [address] [id number] [place] [address]- 9285 30 Jul, 2013 [facility] [place] [facility] [address] [id number] [place] [address] Jul, [facility] [place] [facility] [address] [id number] [place] [address]- 3767 Jul, [facility] [place] [facility] [address] [id number] [place] [address]- 0834 Jan, [facility] [place] [facility] [address] [id number] [place] [address]- 2400 Dec, [facility] [place] [facility] [address] [id number] [place] [address]- 5489 Sep, [facility] [place] [facility] [address] [id number] [place] [address]- 8361 Sep, [facility] [place] [facility] [address] [id number] [place] [address]- 6379 Sep, [facility] [place] [facility] [address] [id number] [place] [address]- 7938 Aug, [facility] [place] [facility] [address] [id number] [place] [address]- 5326 Aug, [facility] [place] [facility] [address] [id number] [place] [address]- 8557 Aug, [facility] [place] [facility] [address] [id number] [place] [address]- 9542 Aug, [facility] [place] [facility] [address] [id number] [place] [address]- 8813 Aug, [facility] [place] [facility] [address] [id number] [place] [address]- 1810 Jul, [facility] [place] [facility] [address] [id number] [place] [address]- 5171 Jul, [facility] [place] [facility] [address] [id number] [place] [address]- 3907 Jun, [facility] [place] [facility] [address] [id number] [place] [address]- 6484 May, [facility] [address] [id number] [place] [address]- 5501 Apr, [facility] [place] [facility] [address] [id number] [place] [address]- 1046 Apr, [facility] [place] [facility] [address] [id number] [place] [address]- 2768 Dec, [facility] [place] [facility] [address] [id number] [place] [address]- 4270 Nov, [facility] [place] [facility] [address] [id number] [place] [address]- 0300 Nov, [facility] [place] [facility] [address] [id number] [place] [address]- 8488 Oct, [facility] [place] [facility] [address] [id number] [place] [address]- 8323 Oct, [facility] [place] [facility] [address] [id number] [place] [address]- 9458 Oct, [facility] [place] [facility] [address] [id number] [place] [address]- 0923 Oct, [facility] [place] [facility] [address] [id number] [place] [address]- 0659 Oct, [facility] [place] [facility] [address] [id number] [place] [address]- 8314 Oct, [facility] [place] [facility] [address] [id number], [place] [address]- 2017 Oct, [facility] [place] [facility] [address] [id number] [place] [address]- 0281 Oct, [facility] [place] [facility] [address] [id number] [place] [address]- 6743 Oct, [facility] [place] [facility] [address] [id number] [place] [address]- 254 Sep, [facility] [place] [facility] [address] [facility] [id number] [place] [address]- 6237 Sep, [facility] [address] [facility] [id number], [place] [address]- 0988 Sep, [facility] [address] [facility] [id number], [place] [address]- 6195 Sep, [facility] [address] [facility] [id number], [place] [address]- 8028 Aug, [facility] [address] [facility] [id number], [place] [address]- 7678 May, [facility] [address] [facility] [id number], [place] [address]- 7153 Apr, IMMUNIZATIONS No Known Immunizations SOCIAL HISTORY Never Assessed REASON FOR VISIT UTI Pt c/o painful urination along with frequency and urgency for about a week LENNY Scott PLAN OF CARE Activity Details Follow Up prn Reason: VITAL SIGNS Height 64 in 2018-01-09 Weight 272.2 lbs 2018-01-09 Temperature 97.4 degrees Fahrenheit 2018-01-09 Heart Rate 84 bpm 2018-01-09 Respiratory Rate 20 2018-01-09 BMI 46.72 kg/m2 2018-01-09 Blood pressure systolic 98 mmHg 2018-01-09 Blood pressure diastolic 62 mmHg 2018-01-09 MEDICATIONS Medication Instructions Dosage Frequency Start Date End Date Duration Status Bactrim DS 800-160 MG Orally Twice a day 1 tablet 12h Dec,Dec 05 days Active Pyridium 200 mg Orally Three times a day 1 tablet after meals 8h Dec, Dec, 2 day(s) Active HydrOXYzine HCl 50 MG Orally Once a day at night prn 1 tablet as needed 30 Not-Taking Paxil 40 MG Orally Once a day 1 tablet by Oral route 1 time per day 24h Jan, 30 days Active Trazodone HCl 100 MG Orally Once a day 1 tablet at bedtime 24h Active Gabapentin 100 mg Orally Three times a day 2 capsule 8h 90 Not- Taking ProAir HFA 108 (90 Base) MCG/ACT Inhalation every 4 hrs 2 puffs as needed 4h 2017 15 days Not-Taking Rexulti 0.5 MG Orally Once a day 1 tablet 24h Not-Taking RESULTS No Results PROCEDURES Procedure Date Ordered Result Body Site URINALYSIS, AUTO, W/O SCOPE Jan 09, 2018 LAB NOT BILLED BY [facility] Jan 09, 2018 INSTRUCTIONS MEDICATIONS ADMINISTERED No Known Medications [...]
--- OUTSIDE RECORDS SUMMARY | 2019-01-02 19:21 | XMS REPORT ---
Author Author DIEGO MORALES [facility] Address [address] [place] [address] Care Team Providers Care Twister Hand Name Role Phone DIEGO MORALES Unavailable PROBLEMS Type Condition ICD9-CM Code NUA51-ZF Code Onset Dates Condition Status SNOMED Code Problem History of drug use F19.21 Active 469177591 Problem History of thyroid disorder Z86.39 Active 964839277 Problem Female stress incontinence N39.3 Active 20950901 Problem Uterine prolapse N81.4 Active 35269012 Problem Hyperlipidemia E78.5 Active 75266972 Problem BMI 40.0-44.9, adult Z68.41 Active 755836185 Problem IV drug abuse F19.10 Active Problem Essential hypertension I10 Active 83466911 Problem Neuropathy involving both lower extremities G57.93 Active 248493467 Problem 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 Active 89914804 Problem History of intravenous drug use in remission Z87.898 Active 11126015 Problem Acute mucoid otitis media of left ear H65.112 Active 57393661 ALLERGIES No Information ENCOUNTERS Encounter Location Date Diagnosis [facility] [address] [place] [address] 02046 -6116 08 Apr, 2018 Poison lex dermatitis L23.7 and BMI 40.0-44.9, adult Z68.41 [facility] [id number] [place] [address] 51996 -1311 28 Jan, 2018 Allergic contact dermatitis due to plants, except food L23.7 and BMI 45.0-49.9, adult Z68.42 [facility] [id number], [place] [address]- 3259 14 Dec, 2017 [facility] [address] [place] [address] 35384 -7572 14 Dec, 2017 Dysuria R30.0 ; Acute cystitis without hematuria N30.00 and BMI 45.0-49.9, adult Z68.42 [facility] [place] [id number] [place] [address] 47289 -7171 Jun, Abscess L02.91 [facility] [place] [id number] [place] [address] 77020 -5034 Jun, Acute bronchitis J20.9 ; Cellulitis of arm, right L03.113 and IV drug abuse F19.10 [facility] [place] [id number] [place] [address] 50031 -1922 March, Cellulitis of hand, right L03.113 [place] [address] [place] [address] [id number] [place] [address] 34468- 2994 Jan, Neuropathy involving both lower extremities G57.93 and 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 [place] [id number] [place] [address] 06470- 3061 Nov, [place] [id number] [place] [address] 06771- 3666 Nov, Essential hypertension I10 ; History of thyroid disorder Z86.39 ; Neuropathy involving both lower extremities G57.93 ; 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 ; History of intravenous drug use in remission Z87.898 and Acute mucoid otitis media of left ear H65.112 [facility] [place] [id number] [place] [address] 86893 -9041 Oct, Dysuria R30.0 and Low back strain, subsequent encounter S39.012D [place] [id number] [place] [address] 70575- 1817 Oct, [address] [id number] Aug, Abscess of arm, right L02.[address] [id number] Aug, Insect bite, infected, initial encounter W57.XXXA [address] [place] [address] 62695- 7034 16 Jun, 2016 Low back pain M54.5 ; History of drug use F19.21 and Nausea with vomiting, unspecified R11.2 [place] [id number] [place] [address] 03050- 2274 Jun, Dysuria R30.0 and Rash R21 [place] [address] [address]- 8229 Nov, [place] [address] [place] [address] [id number] [place] [address] 06730- 3331 Nov, Abdominal cramping R10.9 ; Low back [...] screening for STI (sexually transmitted infection) Z11.3 [place] [id number] [place] [address] 77569- 1893 Jun, Cough 786.2 ; Tobacco abuse 305.1 ; Muscle spasm of back 724.8 and Dysuria 788.1 [place] [id number] [place] [address] 15104- 8717 May, [place] [address] [id number] [place] [address] 77388- 2030 May, [place] [address] [id number] [place] [address] 74146- 8940 May, Lumbar back pain 724.2 ; Malaise and fatigue 780.79 ; Diarrhea 787.91 ; Fever chills 780.60 and Nausea & vomiting 787.01 [place] [id number] [place] [address] 57020- 0185 March, [facility] [address], [place] [address]- 7656 March, [facility] [address] 3198 March, Lumbar back pain 724.2 ; Insomnia 780.52 ; Depression with anxiety 300.4 ; Hypertension 401.9 and Drug addiction 304.90 [facility] [address] [id number] [address] March, Screening for malignant neoplasm of the cervix V76.2 ; Other and unspecified hyperlipidemia 272.4 and Other specified hypoglycemia 251.1 [facility] [address] [place] [id number] March, UTI (urinary tract infection) 599.0 [facility] [address], [place] [address]- 6179 March, [facility] [address] [place] [address] 99373- 0771 Feb, [facility] [address], [place] [address]- 0637 Feb, [facility] [address] 2341 Jan, [facility] [address], [place] [address]- 9250 Jan, [facility] [address] [address] 9491 Oct, [facility] [id number], [place] [address]- 2422 Oct, [facility] [address], [place] [address]- 0107 Sep, [facility] [id number], [place] [address]- 5985 Sep, [facility] [id number] [address]- 0221 Sep, [facility] [place] [facility] [address] [id number] [place] [address]- 0788 07 Sep, 2013 [facility] [place] [facility] [address] [id number] [place] [address]- 9521 Aug, [facility] [place] [facility] [address] [id number] [place] [address]- 4907 20 Aug, 2014 [facility] [place] [facility] [address] [id number] [place] [address]- 7437 16 Aug, 2013 [facility] [place] [facility] [address] [id number] [place] [address]- 3045 Aug, [facility] [place] [facility] [address] [id number] [place] [address]- 0133 Aug, [facility] [place] [facility] [address] [id number] [place] [address]- 8792 Aug, [facility] [place] [facility] [address] [id number] [place] [address]- 4243 Aug, [facility] [place] [facility] [address] [id number] [place] [address]- 7542 Aug, [facility] [place] [facility] [address] [id number] [place] [address]- 8947 Aug, [facility] [place] [facility] [address] [id number] [place] [address]- 9187 Aug, [facility] [place] [facility] [address] [id number] [address]- 6460 Aug, [facility] [place] [facility] [address] [id number] [place] [address]- 1913 Aug, [facility] [place] [facility] [address] [id number] [place] [address]- 3882 30 Jul, 2014 [facility] [place] [facility] [address] [id number] [place] [address]- 3964 30 Jul, 2014 [facility] [place] [facility] [address] [id number] [place] [address]- 6885 Jul, [facility] [place] [facility] [address] [id number] [place] [address]- 5565 Jul, [facility] [place] [facility] [address] [id number] [place] 6576 Jan, [facility] [place] [facility] [address] [id number] [place] [address]- 0491 Dec, [facility] [place] [facility] [address] [id number] [place] [address]- 6292 Sep, [facility] [place] [facility] [address] [id number] [place] [address]- 4291 Sep, [facility] [place] [facility] [address] [id number] [place] [address]- 4661 Sep, [facility] [place] [facility] [address] [facility] [id number] [place] [address]- 2209 Aug, [facility] [place] [facility] [address] [id number] [place] [address]- 2850 Aug, [facility] [place] [facility] [address] [id number] [place] [address]- 9590 Aug, [facility] [place] [facility] [address] [facility] [id number] [place] [address] Aug, [facility] [place] [facility] [address] [id number] [place] [address] Aug, [facility] [place] [facility] [address] [id number] [place] [address] Jul, [facility] [place] [facility] [address] [id number] [place] [address] 18 Jul, 2012 [facility] [place] [facility] [address] [id number] [place] [address] Jun, [facility] [place] [facility] [address] [id number] [place] [address] May, [facility] [place] [facility] [address] [id number] [place] [address] Apr, [facility] [address] [id number] [place] [address] Apr, [facility] [place] [facility] [address] [id number] [place] [address] Dec, [facility] [address] [id number] [place] [address] Nov, [facility] [address] [id number] [place] [address] Nov, [facility] [address] [id number] [place] [address] Oct, [facility] [address] [id number] [place] [address] Oct, [facility] [address] [id number] [place] [address] Oct, [facility] [address] [id number] [place] [address] Oct, [facility] [place] [facility] [address] [id number] [place] [address] Oct, [facility] [place] [facility] [address] [id number] [place] [address] Oct, [facility] [place] [facility] [address] [id number] [place] [address] Oct, [facility] [place] [facility] [address] [id number] [place] [address] Oct, [facility] [place] [facility] [address] [id number] [place] [address] Oct, [facility] [place] [facility] [address] [id number] [place] [address] Sep, [facility] [place] [facility] [address] [id number] [address] Sep, [facility] [address] [facility] [id number] [place] [address] Sep, [facility] [address] [id number] [address] Sep, [facility] [address] [id number], [place] [address] Aug, [facility] [address] [id number], [place] [address] May, [facility] [address] [facility] [id number], [place] [address] Apr, IMMUNIZATIONS No Known Immunizations SOCIAL HISTORY Never Assessed REASON FOR VISIT Request note PLAN OF CARE VITAL SIGNS MEDICATIONS No Known Medications RESULTS No Results PROCEDURES No Known procedures INSTRUCTIONS MEDICATIONS ADMINISTERED No Known Medications MEDICAL [...]
--- OUTSIDE RECORDS SUMMARY | 2019-01-02 19:21 | XMS REPORT ---
Author Author SIRI MARIN [facility] eClinicalWorks Address Unknown Phone Unavailable Care Team Providers Care Mushroom Growing Supervisor Name Role Phone SIRI MARIN CP Unavailable Allergies No Known Allergies Problems Problem Type Condition Code Onset Dates Condition Status Problem Hyperlipidemia E78.5 Active Problem Hypertension I10 Active Problem Female stress incontinence N39.3 Active Problem BMI 40.0-44.9, adult Z68.41 Active Problem History of drug use F19.21 Active Problem Dysmenorrhea N94.6 Active Problem Uterine prolapse N81.4 Active Medications No Known Medications Results No Known Results Summary Purpose eClinicalWorks Submission
--- OUTSIDE RECORDS SUMMARY | 2019-01-02 19:21 | XMS REPORT ---
Author Author DIEGO MORALES [facility] Address [address] [place] [address] Care Team Providers Care Station Supervisor Name Role Phone DIEGO MORALES Unavailable PROBLEMS Type Condition ICD9-CM Code [id number] Code Onset Dates Condition Status SNOMED Code Problem History of drug use F19.21 Active 653274519 Problem History of thyroid disorder Z86.39 Active 119245881 Problem Female stress incontinence N39.3 Active 60035962 Problem Uterine prolapse N81.4 Active 60785919 Problem Hyperlipidemia E78.5 Active 05085524 Problem BMI 40.0-44.9, adult Z68.41 Active 373917587 Problem IV drug abuse F19.10 Active Problem Essential hypertension I10 Active 99648983 Problem Neuropathy involving both lower extremities G57.93 Active 089792978 Problem 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 Active 85770107 Problem History of intravenous drug use in remission Z87.898 Active 16747345 Problem Acute mucoid otitis media of left ear H65.112 Active 69289926 ALLERGIES Substance Reaction Event Type Date Status Codeine Sulfate Unknown Drug Allergy Nov, Active SOCIAL HISTORY No smoking Hx information available PLAN OF CARE Activity Details Follow Up 2 Months Reason:Pain VITAL SIGNS Height 64 in 2016-11-28 Weight 251.8 lbs 2016-11-28 Temperature 97.8 degrees Fahrenheit 2016-11-28 Heart Rate 77 bpm 2016-11-28 Respiratory Rate 18 2016-11-28 BMI 43.22 kg/m2 2016-11-28 Blood pressure systolic 126 mmHg 2016-11-28 Blood pressure diastolic 72 mmHg 2016-11-28 MEDICATIONS Medication Instructions Dosage Frequency Start Date End Date Duration Status Paxil 40 MG Orally Once a day 1 tablet by Oral route 1 time per day 24h Jan, 30 days Active Rexulti 0.5 MG Orally Once a day 1 tablet 24h Active Amoxicillin 500 MG Orally 3 times a day 1 capsule 8h Nov, Nov, 07 days Active Gabapentin 100 MG Orally Three times a day 1 tablet 8h Active RESULTS Name Result Date Reference Range SYPHLLIS (T PALLIDUM) Ab (FTA-Ab) 2016-11-28 T pallidum Ab (FTA-Ab) Non Reactive Non Reactive TSH 2016-11-28 TSH 1.230 0.450-4.500 CBC 2016-11-28 WBC 12.6 3.4-10.8 RBC 4.39 3.77-5.28 Hemoglobin 13.4 11.1-15.9 Hematocrit 40.3 34.0-46.6 MCV 92 79-97 MCH 30.5 26.6-33.0 MCHC 33.3 31.5-35.7 RDW 13.1 12.3-15.4 Platelets 385 150-379 Neutrophils 66 Lymphs 26 Monocytes 6 Eos 2 Basos 0 Neutrophils (Absolute) 8.4 1.4-7.0 Lymphs (Absolute) 3.3 0.7-3.1 Monocytes(Absolute) 0.8 0.1-0.9 Eos (Absolute) 0.2 0.0-0.4 Baso (Absolute) 0.0 0.0-0.2 Immature Granulocytes 0 Immature Grans (Abs) 0.0 0.0-0.1 CMP 2016-11-28 Glucose, Serum 89 65-99 BUN 14 6-20 Creatinine, Serum 0.54 0.57-1.00 eGFR If NonAfricn Am 124 >59 eGFR If Africn Am 142 >59 BUN/Creatinine Ratio 26 8-20 Sodium, Serum 140 134-144 Potassium, Serum 4.5 3.5-5.2 Chloride, Serum 101 96-106 Carbon Dioxide, Total 23 18-29 Calcium, Serum 8.8 8.7-10.2 Protein, Total, Serum 5.9 6.0-8.5 Albumin, Serum 4.1 3.5-5.5 Globulin, Total 1.8 1.5-4.5 A/G Ratio 2.3 1.1-2.5 Bilirubin, Total 0.3 0.0-1.2 Alkaline Phosphatase, S 56 39-117 AST (SGOT) 8 0-40 ALT (SGPT) 10 0-32 HEPATITIS PROFILE 2016-11-28 Hep A Ab, IgM Negative Negative HBsAg Screen Negative Negative Hep B Core Ab, IgM Negative Negative Hep C Virus Ab <0.1 0.0-0.9 HIV (STATE) PROCEDURES Procedure Date Ordered Related Diagnosis Body Site No Charge Nov 28, 2016 [facility] Nov 28, 2016 VENIPLEIGHANN, ROUTINE* Nov 28, 2016 Office Visit, Est Pt., Level 5 Nov 28, 2016 IMMUNIZATIONS No Known Immunizations
--- OUTSIDE RECORDS SUMMARY | 2019-01-02 19:21 | XMS REPORT ---
Author Author DIEGO MORALES [facility] Address [address] [place] [address] Care Team Providers Care Polymerization Kettle Operator Name Role Phone DIEGO MORALES Unavailable PROBLEMS Type Condition ICD9-CM Code GSE69-LU Code Onset Dates Condition Status SNOMED Code Problem History of drug use F19.21 Active 008941642 Problem History of thyroid disorder Z86.39 Active 984050442 Problem Female stress incontinence N39.3 Active 15793974 Problem Uterine prolapse N81.4 Active 81316097 Problem Hyperlipidemia E78.5 Active 63748770 Problem BMI 40.0-44.9, adult Z68.41 Active 884234616 Problem IV drug abuse F19.10 Active Problem Essential hypertension I10 Active 35982431 Problem Neuropathy involving both lower extremities G57.93 Active 254865050 Problem 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 Active 87933220 Problem History of intravenous drug use in remission Z87.898 Active 91838211 Problem Acute mucoid otitis media of left ear H65.112 Active 54017626 ALLERGIES Substance Reaction Event Type Date Status Codeine Sulfate Unknown Drug Allergy Jan, Active SOCIAL HISTORY Never Assessed PLAN OF CARE Activity Details Follow Up 3 Months Reason:neuropathic pain VITAL SIGNS Height 64 in 2017-02-14 Weight 253.8 lbs 2017-02-14 Temperature 97.9 degrees Fahrenheit 2017-02-14 Heart Rate 80 bpm 2017-02-14 Respiratory Rate 18 2017-02-14 BMI 43.56 kg/m2 2017-02-14 Blood pressure systolic 132 mmHg 2017-02-14 Blood pressure diastolic 83 mmHg 2017-02-14 MEDICATIONS Medication Instructions Dosage Frequency Start Date End Date Duration Status HydrOXYzine HCl 50 MG Orally Once a day at night prn 1 tablet as needed 30 Active Gabapentin 100 mg Orally Three times a day 2 capsule 8h Active Rexulti 0.5 MG Orally Once a day 1 tablet 24h Active Paxil 40 MG Orally Once a day 1 tablet by Oral route 1 time per day 24h 27 Mar, 2015 30 days Active RESULTS No Results PROCEDURES No Known procedures IMMUNIZATIONS No Known Immunizations MEDICAL (GENERAL) HISTORY Type Description Date Medical [...]
--- OUTSIDE RECORDS SUMMARY | 2019-01-02 19:21 | XMS REPORT ---
Author Author DIEGO MORALES [facility] Address [address] [place] [address] Care Team Providers Care Director Instrumentation Name Role Phone DIEGO MORALES Unavailable PROBLEMS Type Condition ICD9-CM Code DID85-HF Code Onset Dates Condition Status SNOMED Code Problem History of drug use F19.21 Active 915720204 Problem History of thyroid disorder Z86.39 Active 811629648 Problem Female stress incontinence N39.3 Active 48655375 Problem Uterine prolapse N81.4 Active 67417541 Problem Hyperlipidemia E78.5 Active 27068739 Problem BMI 40.0-44.9, adult Z68.41 Active 770585516 Problem IV drug abuse F19.10 Active Problem Essential hypertension I10 Active 54074181 Problem Neuropathy involving both lower extremities G57.93 Active 034853907 Problem 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
--- OUTSIDE RECORDS SUMMARY | 2019-01-02 19:21 | XMS REPORT ---
Author Author SARIAH SESAY [facility] Address [address] [place] [address] Care Team Providers Care Hose Inspector And Patcher Name Role Phone SARIAH SESAY Unavailable PROBLEMS Type Condition ICD9-CM Code NTV38-DR Code Onset Dates Condition Status SNOMED Code Problem History of drug use F19.21 Active 404766342 Problem History of thyroid disorder Z86.39 Active 709218614 Problem Female stress incontinence N39.3 Active 07913115 Problem Uterine prolapse N81.4 Active 84727443 Problem Hyperlipidemia E78.5 Active 47428603 Problem BMI 40.0-44.9, adult Z68.41 Active 781242414 Problem IV drug abuse F19.10 Active Problem Essential hypertension I10 Active 77349113 Problem Neuropathy involving both lower extremities G57.93 Active 392489859 Problem 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 Active 80657015 Problem History of intravenous drug use in remission Z87.898 Active 29961196 Problem Acute mucoid otitis media of left ear H65.112 Active 66289732 ALLERGIES Substance Reaction Event Type Date Status Codeine Sulfate Unknown Drug Allergy March, Active SOCIAL HISTORY Never Assessed PLAN OF CARE VITAL SIGNS Height 64 in 2017-04-11 Weight 255.0 lbs 2017-04-11 Temperature 97.2 degrees Fahrenheit 2017-04-11 Heart Rate 80 bpm 2017-04-11 Respiratory Rate 22 2017-04-11 BMI 43.77 kg/m2 2017-04-11 Blood pressure systolic 98 mmHg 2017-04-11 Blood pressure diastolic 60 mmHg 2017-04-11 MEDICATIONS Medication Instructions Dosage Frequency Start Date End Date Duration Status Paxil 40 MG Orally Once a day 1 tablet by Oral route 1 time per day 24h Jan, 30 days Active Keflex 500 mg Orally 4 times a day 1 capsule 6h March, March, 10 days Active Gabapentin 100 mg Orally Three times a day 2 capsule 8h Active Rexulti 0.5 MG Orally Once a day 1 tablet 24h Active HydrOXYzine HCl 50 MG Orally Once a day at night prn 1 tablet as needed 30 Active RESULTS No Results PROCEDURES No Known [...]
--- OUTSIDE RECORDS SUMMARY | 2019-01-02 19:21 | XMS REPORT ---
Author SARIAH Valles Organization eClinicalWorks Address Unknown Phone Unavailable Care Team Providers Care Air Sampling And Monitoring Name Role Phone SARIAH SESAY CP Unavailable Allergies No Known Allergies Problems Problem Type Condition Code Onset Dates Condition Status Problem History of drug use F19.21 Active Assessment Abscess of arm, right L02.413 Active Problem Female stress incontinence N39.3 Active Problem Hyperlipidemia E78.5 Active Problem Nausea with vomiting, unspecified R11.2 Active Problem Uterine prolapse N81.4 Active Problem BMI 40.0-44.9, adult Z68.41 Active Problem Hypertension I10 Active Problem Dysmenorrhea N94.6 Active Medications No Known Medications Procedures Procedure Coding System Code Date Office Visit, Est Pt., Level 2 CPT-4 82483 Sep 12, 2016 Vital Signs Date/Time: Sep 12, 2016 Cardiac Monitoring Heart Rate 60 bpm Weight 233 lbs Height 64 in BMI 39.99 Index Blood Pressure Diastolic 64 mmHg Blood Pressure Systolic 100 mmHg Results No Known Results Summary Purpose BeamlyinicalWorks Submission
--- OUTSIDE RECORDS SUMMARY | 2019-01-02 19:21 | XMS REPORT ---
Author Author ELAINE DONAHUE Organization [facility] Address [address] [place] [address] Care Team Providers Care Trencher Driver Name Role Phone ELAINE DONAHUE Unavailable PROBLEMS Type Condition ICD9-CM Code DNY68-YY Code Onset Dates Condition Status SNOMED Code Problem Hyperlipidemia E78.5 Active 39149586 Problem Acute mucoid otitis media of left ear H65.112 Active 52376269 Problem Female stress incontinence N39.3 Active 54252143 Problem History of drug use F19.21 Active 028981697 Problem BMI 40.0-44.9, adult Z68.41 Active 014909433 Problem Uterine prolapse N81.4 Active 61417702 Problem IV drug abuse F19.10 Active Problem Essential hypertension I10 Active 68615185 Problem 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 Active 30462425 Problem History of intravenous drug use in remission Z87.898 Active 76483991 Problem History of thyroid disorder Z86.39 Active 854848557 Problem Neuropathy involving both lower extremities G57.93 Active 241358295 ALLERGIES Substance Reaction Event Type Date Status Codeine Sulfate Unknown Drug Allergy Oct, Active SOCIAL HISTORY No smoking Hx information available PLAN OF CARE Activity Details Follow Up prn Reason: VITAL SIGNS Height 64 in 2016-11-16 Weight 246.0 lbs 2016-11-16 Temperature 97.5 degrees Fahrenheit 2016-11-16 Heart Rate 88 bpm 2016-11-16 Respiratory Rate 18 2016-11-16 BMI 42.22 kg/m2 2016-11-16 Blood pressure systolic 104 mmHg 2016-11-16 Blood pressure diastolic 62 mmHg 2016-11-16 MEDICATIONS Medication Instructions Dosage Frequency Start Date End Date Duration Status Gabapentin 100 MG Orally Three times a day 1 tablet 8h Active Rexulti 0.5 MG Orally Once a day 1 tablet 24h Active Cyclobenzaprine HCl 10 MG Orally Three times a day prn back spasm 1 tablet Jun, Oct, 0 days Active Minipress 2 MG Orally Once a day 1 capsule at bedtime 24h Active Paxil 40 MG Orally Once a day 1 tablet by Oral route 1 time per day 24h Jan, 30 days Active RESULTS Name Result Date Reference Range UA LONG DIP (IN HOUSE) 2016-11-16 Lot # [id number] Exp date 2017-12-26 Clarity clear Color yellow Odor none GLU negative DAVID negative KET negative SG >=1.030 BLO negative pH 6.0 Protein negative URO 0.2 NIT negative KATE negative Lot # [id number] Exp date 2017-12 PROCEDURES Procedure Date Ordered Related Diagnosis Body Site URINALYSIS, AUTO, W/O SCOPE Nov 16, 2016 Office Visit, Est Pt., Level 3 Nov 16, 2016 IMMUNIZATIONS No Known Immunizations
--- OUTSIDE RECORDS SUMMARY | 2019-01-02 19:21 | XMS REPORT ---
Author Author SIRI MARIN [facility] eClinicalWorks Address Unknown Phone Unavailable Care Team Providers Care Louver Door Assembler Name Role Phone SIRI MARIN Unavailable Allergies, Adverse Reactions, Alerts Substance Reaction Event Type Codeine Sulfate Info Not Available Drug Allergy Problems Problem Type Condition Code Onset Dates Condition Status Assessment Dysmenorrhea N94.6 Active Assessment Abdominal cramping R10.9 Active Assessment Low back pain M54.5 Active Problem Hyperlipidemia E78.5 Active Problem Hypertension I10 Active Problem Female stress incontinence N39.3 Active Problem BMI 40.0-44.9, adult Z68.41 Active Problem History of drug use F19.21 Active Problem Dysmenorrhea N94.6 Active Problem Uterine prolapse N81.4 Active Assessment Right lower quadrant pain R10.31 Active Assessment History of drug use F19.21 Active Assessment Routine screening for STI (sexually transmitted infection) Z11.3 Active Assessment Screening for malignant neoplasm of cervix Z12.4 Active Assessment Uterine prolapse N81.4 Active Assessment Cervical motion tenderness N94.9 Active Assessment BMI 40.0-44.9, adult Z68.41 Active Assessment Dysuria R30.0 Active Assessment Unprotected sexual intercourse Z72.51 Active Assessment Urinary frequency R35.0 Active Medications Medication Code System Code Instructions Start Date End Date Status Dosage Risperdal [facility] [address]-76 2 MG Orally Once a day 1 tablet Gabapentin [facility] [address]-00 100 MG Orally Three times a day 1 tablet Doxycycline Monohydrate [facility] [address]-45 100 MG Orally every 12 hrs NovDec 23, 2015 1 tablet Procedures Procedure Coding System Code Date URINE TEST CPT-4 82222 Dec 13, 2015 URINE CULTURE/COLONY COUNT CPT-4 56424 Dec 13, 2015 URINALYSIS, AUTO, W/O SCOPE CPT-4 70090 Dec 13, 2015 Office Visit, Est Pt., Level 4 CPT-4 98785 Dec 13, 2015 TRICHOMONAS ASSAY W/OPTIC CPT-4 45034 Dec 13, 2015 No Charge CPT-4 81483 Dec 13, 2015 SPECIMEN HANDLING CPT-4 30995 Dec 13, 2015 CULTURE, BACTERIA, OTHER CPT-4 43499 Dec 13, 2015 Vital Signs Date/Time: Dec 13, 2015 Temperature 97.6 F Weight 235.7 lbs Height 64 in BMI 40.45 Index Blood Pressure Diastolic 80 mmHg Blood Pressure Systolic 128 mmHg Cardiac Monitoring Heart Rate 78 bpm Results Name Result Date Reference Range Unit Abnormality Flag TEST, URINE (IN HOUSE) ----RESULTS Negative 20151213 ----Lot # [id number] 20151213 ----Control + 20151213 ----Exp date 20151213 UA LONG DIP (IN HOUSE) ----DVAID negative 20151213 ----GLU negative 20151213 ----SG 1.020 20151213 ----KET negative 20151213 ----pH 8.5 20151213 ----Protein Negative 20151213 ----BLO Negative 20151213 ----KATE Trace 20151213 ----Color yellow 20151213 ----Odor no 20151213 ----Exp date 20151213 ----URO 0.2 20151213 ----NIT Negative 20151213 ----Clarity clear 20151213 ----Lot # [id number] 20151213 Summary Purpose eClinicalWorks Submission
--- OUTSIDE RECORDS SUMMARY | 2019-01-02 19:22 | XMS REPORT ---
Author SARIAH Valles Organization eClinicalWorks Address Unknown Phone Unavailable Care Team Providers Care Packer And Carry Out Name Role Phone SARIAH SESAY CP Unavailable Allergies, Adverse Reactions, Alerts Substance Reaction Event Type Codeine Sulfate Info Not Available Drug Allergy Problems Problem Type Condition Code Onset Dates Condition Status Assessment Dysuria R30.0 Active Assessment Rash R21 Active Problem Hyperlipidemia E78.5 Active Problem Hypertension I10 Active Problem Female stress incontinence N39.3 Active Problem BMI 40.0-44.9, adult Z68.41 Active Problem History of drug use F19.21 Active Problem Dysmenorrhea N94.6 Active Problem Uterine prolapse N81.4 Active Medications Medication Code System Code Instructions Start Date End Date Status Dosage Bactrim DS [facility] [address]-78 800-160 MG Orally Twice a day Jun 26, 2016 Jul 06, 2016 1 tablet Paxil [facility] [address]-30 40 MG Orally Once a day February 19, 2015 1 tablet by Oral route 1 time per day Triamcinolone Acetonide [facility] [address]-01 0.1 % Externally Twice a day Jun 26, 2016 1 application to affected area prazosin NDC 0 2 mg orally Once a day February 19, 2015 take 1 capsule by Oral route 1 time per day at bedtime Gabapentin [facility] [address]-44 100 MG Orally Three times a day 1 tablet Procedures Procedure Coding System Code Date Office Visit, Est Pt., Level 3 CPT-4 79196 Jun 26, 2016 URINALYSIS, AUTO, W/O SCOPE CPT-4 12561 Jun 26, 2016 Vital Signs Date/Time: Jun 26, 2016 Cardiac Monitoring Heart Rate 82 bpm Weight 229.8 lbs Height 64 in BMI 39.44 Index Blood Pressure Diastolic 83 mmHg Blood Pressure Systolic 132 mmHg Results No Known Results Summary Purpose eClinicalWorks Submission
--- OUTSIDE RECORDS SUMMARY | 2019-01-02 19:22 | XMS REPORT ---
Author SARIAH Valles Organization eClinicalWorks Address Unknown Phone Unavailable Care Team Providers Care Event Promoter Name Role Phone SARIAH SESAY CP Unavailable Allergies No Known Allergies Problems Problem Type Condition Code Onset Dates Condition Status Problem History of drug use F19.21 Active Assessment Insect bite, infected, initial encounter W57.XXXA Active Problem Female stress incontinence N39.3 Active Problem Hyperlipidemia E78.5 Active Problem Nausea with vomiting, unspecified R11.2 Active Problem Uterine prolapse N81.4 Active Problem BMI 40.0-44.9, adult Z68.41 Active Problem Hypertension I10 Active Problem Dysmenorrhea N94.6 Active Medications No Known Medications Procedures Procedure Coding System Code Date Office Visit, New Pt., Level 2 CPT-4 58187 Sep 05, 2016 Vital Signs Date/Time: Sep 05, 2016 Cardiac Monitoring Heart Rate 76 bpm Weight 233 lbs Height 64 in BMI 39.99 Index Blood Pressure Diastolic 64 mmHg Blood Pressure Systolic 110 mmHg Results No Known Results Summary Purpose eClinicalWorks Submission
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
[2019-01-02] MEDS ORDERED: CEPH-507 PO (19:33)
[2019-01-02] MEDS ORDERED: SULF1TAB35 PO (19:33)
[2019-01-02] MEDS ORDERED: HYDR-4226 PO (19:33)
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
[2019-01-02] MEDS ORDERED: RX-HYDROCODONE/APAP 5/325 MG #4 TAB PK PO PRN (19:45)
[2019-01-02 19:58] LABS: BILIRUBIN,URINE NEGATIVE (NEGATIVE); CLARITY,URINE VERY CLOUDY; COLOR,URINE YELLOW; GLUCOSE, URINE (UA) NEGATIVE (NEGATIVE); KETONES,URINE 1+ (NEGATIVE); LEUKOCYTE ESTERASE ,URINE 1+ (NEGATIVE); NITRITE,URINE NEGATIVE (NEGATIVE); PH,URINE 5 (5-9); PROTEIN,URINE 2+ (NEGATIVE); UROBILINOGEN,URINE NORMAL (NORMAL)
--- NOTE | 2019-01-02 20:10 | NUR ---
After this RN attempted to get blood culture from IV and lab poked pt multiple times, the provider decided not to get blood cultures and just give antibiotic. Antibiotic was started and given.
[2019-01-02 20:14] LABS: AMPHETAMINE SCREEN, URINE POSITIVE (NEGATIVE); BACTERIA,URINE FEW /HPF; METHAMPHETAMINE SCREEN URINE S POSITIVE (NEGATIVE); SQUAMOUS EPITHELIAL CELL,UR 25-50 /HPF
[2019-01-02 20:15] LABS: BARBITURATE SCREEN URINE NEGATIVE (NEGATIVE); BENZODIAZEPINES SCREEN URINE NEGATIVE (NEGATIVE); CANNABINOID SCREEN, URINE NEGATIVE (NEGATIVE); COCAINE SCREEN URINE NEGATIVE (NEGATIVE); METHADONE STAT NEGATIVE (NEGATIVE); OPIATE SCREEN URINE NEGATIVE (NEGATIVE); OXYCODONE STAT NEGATIVE (NEGATIVE); PROPOXYPHENE STAT NEGATIVE (NEGATIVE); TRICYCLIC ANTIDEPRESSANTS SCRE NEGATIVE (NEGATIVE)
[2019-01-02] MEDS ORDERED: RX-ONDANSETRON 4 MG ODT (ZOFRAN) PPK #4 ONE (20:50)
[2019-01-02 20:58] VITALS: BP 122/75
== END 2019-01-02 20:58 | disposition home or self-care (01) ==
LOC: EDUNIT# 17:58 → ER 17:59
DX: N61.1 Abscess of the breast and nipple (principal); G43.909 Migraine, unspecified, not intractable, without status migrainosus; E11.9 Type 2 diabetes mellitus without complications; F32.9 Major depressive disorder, single episode, unspecified; F17.210 Nicotine dependence, cigarettes, uncomplicated; Z90.710 Acquired absence of both cervix and uterus; Z87.442 Personal history of urinary calculi; Z82.49 Family history of ischemic heart disease and other diseases of the circulatory system; Z80.0 Family history of malignant neoplasm of digestive organs; Z87.448 Personal history of other diseases of urinary system; Z90.89 Acquired absence of other organs; Z88.5 Allergy status to narcotic agent; Z91.041 Radiographic dye allergy status
CPT/HCPCS: 36415; 80053; 80306; 81000; 84703; 85025; 87070; 87205

== ENCOUNTER 2019-01-05 15:00 | Emergency (ER) | payer MEDICAID ==
[~2019-01-05] VITALS: Ht 162.6 cm; Wt 107.2 kg
[~2019-01-05 15:00] MED LIST changes: +HYDR-4226 PO
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
--- NOTE | 2019-01-05 15:10 | NUR ---
DILCIA DRAIN REMOVED BY Courtney HOOKER APRN. NO DRAINAGE NOTED. 4X4 DRSG APPLIED.
[2019-01-05 15:13] VITALS: BP 94/61
== END 2019-01-05 15:15 | disposition home or self-care (01) ==
LOC: EDUNIT# 15:00 → ER 15:02
DX: N61.1 Abscess of the breast and nipple (principal)

== ENCOUNTER 2019-12-15 14:21 | Emergency (ER) | payer SELFPAY ==
[~2019-12-15] VITALS: Ht 162 cm; Wt 85.0 kg
[2019-12-15] MEDS ORDERED: KETOROLAC 60 MG/2 ML VIAL IM ONE (15:30)
[2019-12-15] MEDS ORDERED: ORPHENADRINE 60 MG/2 ML (NORFLEX) AMP IM ONE (15:30)
--- NOTE | 2019-12-15 16:22 | ED Integumentary General ---
General Chief Complaint: Skin/Wound Problems Stated Complaint: BACK SWELLING/WOUND Nursing Triage Note: Pt ambulates to triage with c/o redness/swelling/pain to left side of upper back x 1 day. PT states pain radiates down to tailbone. Pt denies any strain to that area. No rash present upon observation in triage. Source: patient Exam Limitations: no limitations History of Present Illness Date Seen by Provider: Dec 15, 2019 Time Seen by Provider: 15:30 Initial Comments 39-year-old female who presents to emergency room with complaints of redness and swelling to the left upper back/shoulder blade area. She reports that she has had pain and redness to this area for one day. She denies any known injury or strain to the area. She has redness and induration to the area. She has history of chickenpox and cellulitis with abscess. She denies any fevers. The area is very tender to palpation. Allergies and Home Medications Allergies Coded Allergies: codeine (Verified Allergy, Unknown, NAUSEA, 01/10/16) Iodinated Contrast Media - IV Dye (Verified Adverse Reaction, Mild, ITCHING, 12/09/11) Home Medications Cephalexin 500 Mg Capsule, 500 MG PO QID Prescribed by: CHARITY HOOKER on 01/02/191932 Gabapentin 300 Mg Capsule, 300 MG PO TID, (Reported) Hydrocodone/Acetaminophen 1 Each Tablet, 1 EACH PO Q6H PRN for PAIN-MODERATE Do not fill unless Bactrim and Keflex is also filled Prescribed by: CHARITY HOOKER on 01/02/191932 Paroxetine HCl 10 Mg Tablet, 40 MG PO DAILY, (Reported) Promethazine HCl 25 Mg Tablet, 25 MG PO Q8H PRN for NAUSEA/VOMITING Prescribed by: KYLER OSEGUERA on 07/12/16 1309 Sulfamethoxazole/Trimethoprim 1 Each Tablet, 1 EACH PO BID Prescribed by: CHARITY HOOKER on 01/02/191932 Past Eiwcauh-Gwtnbp-Vjmooi Hx Patient Social History Alcohol Use: Denies Use Recreational Drug Use: Yes (PREVIOUS IV METH) Drug of Choice: Meth Type Used: Cigarettes 2nd Hand Smoke Exposure: Yes Recent Foreign Travel: No Contact w/Someone Who Travel: No Recent Infectious Disease Expo: No Recent Hopitalizations: No Physical Abuse: No Sexual Abuse: No Mistreated: No Fear: No Immunizations Up To Date Tetanus Booster (TDap): Less than 5yrs Date of Pneumonia Vaccine: Aug 26, 2014 Date of Influenza Vaccine: Nov 09, 2015 Seasonal Allergies Seasonal Allergies: No Past Medical History Surgeries: Yes (CYST OFF WRIST, CYST OFF OVARY, bowel/bladder reconstruction) Adenoidectomy, Bladder Surgery, Bowel Surgery, Hysterectomy, Tonsillectomy Respiratory: No Cardiac: No Neurological: No Headaches /Migraines Reproductive Disorders: No 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 Genitourinary: No Kidney Stones Gastrointestinal: No Musculoskeletal: No Degenerate Disk Disease, Back Injury, Chronic Back Pain Endocrine: No Diabetes, Non-Insulin dep HEENT: No Cancer: No Psychosocial: Yes Depression Integumentary: No Blood Disorders: No Family Medical History Alcoholism 19 FATHER 19 MOTHER Arthritis 19 MOTHER GRANDPARENTS Cardiovascular disease GRANDPARENTS Colon cancer GRANDPARENTS Diabetes mellitus 19 MOTHER Drug abuse 19 FATHER 19 MOTHER G8 BROTHER Myocardial infarction GRANDPARENTS No Pertinent Family Hx Physical Exam Vital Signs Vital Signs - First Documented 12/15/19 14:39 Temp 36.9 Pulse 82 Resp 19 B/P (MAP) 115/76 (89) Pulse Ox 99 O2 Delivery Room Air Capillary Refill : Less Than 3 Seconds Progress/Results/Core Measures Results/Orders My Orders Orders - LAKESHARIP Ketorolac Injection (Toradol Injection) (12/15/19 15:30) Orphenadrine Injection (Norflex Injectio (12/15/19 15:30) Medications Given in ED Current Medications Medications Dose Ordered Sig/Blanca Route Start Time Stop Time Status Last Admin Dose Admin Ketorolac Tromethamine 60 mg ONCE ONCE IM 12/15/19 15:30 12/15/19 15:31 DC 12/15/19 15:34 60 MG Orphenadrine Citrate 60 mg ONCE ONCE IM 12/15/19 15:30 12/15/19 15:31 DC 12/15/19 15:34 60 MG Vital Signs/I&O 12/15/19 14:39 Temp 36.9 Pulse 82 Resp 19 B/P (MAP) 115/76 (89) Pulse Ox 99 O2 Delivery Room Air Blood Pressure Mean: 89 Departure Impression Primary Impression: Shingles Additional Impression: Cellulitis Disposition: 01 HOME, SELF-CARE Condition: Stable/Unchanged Departure-Patient Inst. Decision time for Depature: 16:19 Referrals: [facility] (PCP/Family) Primary Care Physician Patient Instructions: Shingles, Cellulitis (Skin Infection), Adult (DC) Add. Discharge Instructions: Take medications as directed. We will be treating you for possible infection and shingles. You may use ibuprofen and Tylenol as directed by the bottle for use Ultram as needed for additional pain relief. Follow-up with your primary care provider within 1 week for recheck. Return back to the emergency room for worsening symptoms or concerns as needed. All discharge instructions reviewed with patient and/or family. Voiced understanding. Scripts Tramadol HCl (Ultram) 50 Mg Tablet 50 MG PO Q6H for 5 Days, #20 TAB Prov: RIP CROWDER 12/15/19 Famciclovir (Famciclovir) 500 Mg Tablet 500 MG PO TID for 7 Days, #21 TAB Prov: RIP CROWDER 12/15/19 Sulfamethoxazole/Trimethoprim (Bactrim Ds Tablet) 1 Each Tablet 1 EACH PO BID for 7 Days, #14 TAB Prov: RIP CROWDER 12/15/19 RIP CROWDER Dec 15, 2019 16:22
[2019-12-15] MEDS ORDERED: SULF1TAB35 PO (16:25)
[2019-12-15] MEDS ORDERED: FAMC500T17 PO (16:25)
[2019-12-15] MEDS ORDERED: TRAM-42 PO (16:26)
[2019-12-15 16:33] VITALS: BP 115/76
== END 2019-12-15 16:32 | disposition home or self-care (01) ==
LOC: EDUNIT# 14:21 → ER 14:21
DX: B02.9 Zoster without complications (principal); L03.312 Cellulitis of back [any part except buttock and flank]; E11.9 Type 2 diabetes mellitus without complications; G43.909 Migraine, unspecified, not intractable, without status migrainosus; F32.9 Major depressive disorder, single episode, unspecified; Z88.5 Allergy status to narcotic agent; Z91.041 Radiographic dye allergy status; Z77.22 Contact with and (suspected) exposure to environmental tobacco smoke (acute) (chronic); Z90.89 Acquired absence of other organs; Z90.710 Acquired absence of both cervix and uterus; Z87.442 Personal history of urinary calculi; Z82.49 Family history of ischemic heart disease and other diseases of the circulatory system; Z80.0 Family history of malignant neoplasm of digestive organs
CPT/HCPCS: 96372; 99284

== ENCOUNTER 2020-08-01 09:57 | Emergency (ER) | payer SELFPAY ==
[~2020-08-01] VITALS: Ht 162.5 cm; Wt 89.7 kg
[~2020-08-01 09:57] MED LIST changes: +FAMC500T2 PO; +TRAM-42 PO
[2020-08-01 10:20] VITALS: BP 128/93
--- NOTE | 2020-08-01 10:53 | ED Cough/URI ---
General Chief Complaint: Cough/Cold/Flu Symptoms Stated Complaint: FEVER, LOSS OF SMELL, BACK PAIN Nursing Triage Note: pt amb to rm 10 with complaint of headache, chills, body aches, soa, cough, runny nose, and loss/different taste. states symptoms started two days ago. Sepsis Screen: No Definite Risk Source: patient Exam Limitations: no limitations History of Present Illness Date Seen by Provider: Aug 01, 2020 Time Seen by Provider: 10:29 Initial Comments Patient has ER by private conveyance with chief complaint 3 days of malaise, cough, sore throat and fever. She's had some nausea but no vomiting. No dysuria diarrhea. She's had some decreased sensation of taste and smell. No known sick contacts. She has a hysterectomy. She's been using antipyretics with her last dose today. She does not smoke and has no history of COPD or asthma. No significant medical history. She does not take medicines routinely. Allergies and Home Medications Allergies Coded Allergies: codeine (Verified Allergy, Unknown, NAUSEA, 01/10/16) Iodinated Contrast Media - IV Dye (Verified Adverse Reaction, Mild, ITCHING, 12/09/11) Home Medications Cephalexin 500 Mg Capsule, 500 MG PO QID Prescribed by: CHARITY HOOKER on 01/02/191932 Famciclovir 500 Mg Tablet, 500 MG PO TID Prescribed by: RIP CROWDER on 12/15/191624 Gabapentin 300 Mg Capsule, 300 MG PO TID, (Reported) Hydrocodone/Acetaminophen 1 Each Tablet, 1 EACH PO Q6H PRN for PAIN-MODERATE Do not fill unless Bactrim and Keflex is also filled Prescribed by: CHARITY HOOKER on 01/02/191932 Paroxetine HCl 10 Mg Tablet, 40 MG PO DAILY, (Reported) Promethazine HCl 25 Mg Tablet, 25 MG PO Q8H PRN for NAUSEA/VOMITING Prescribed by: KYLER OSEGUERA on 07/12/16 1309 Sulfamethoxazole/Trimethoprim 1 Each Tablet, 1 EACH PO BID Prescribed by: CHARITY HOOKER on 01/02/191932 Sulfamethoxazole/Trimethoprim 1 Each Tablet, 1 EACH PO BID Prescribed by: RIP CROWDER on 12/15/19 162 Tramadol HCl 50 Mg Tablet, 50 MG PO Q6H Prescribed by: RIP CROWDER on 12/15/19 162 Patient Home Medication List Home Medication List Reviewed: Yes Review of Systems Review of Systems Constitutional: chills, fever, malaise EENTM: No ear discharge, No ear pain Respiratory: cough; No phlegm; short of breath Cardiovascular: No chest pain, No edema, No Hx of Intervention Gastrointestinal: No abdominal pain; nausea; No vomiting Genitourinary: No discharge, No dysuria Musculoskeletal: No back pain, No joint pain All Other Systems Reviewed Negative Unless Noted: Yes Past Idhcwno-Ixurxp-Gvwfsm Hx Patient Social History Alcohol Use: Denies Use Recreational Drug Use: Yes (PREVIOUS IV METH) Drug of Choice: Meth Smoking Status: Current Everyday Smoker Type Used: Cigarettes 2nd Hand Smoke Exposure: Yes Recent Foreign Travel: No Contact w/Someone Who Travel: No Recent Infectious Disease Expo: No Recent Hopitalizations: No Immunizations Up To Date Tetanus Booster (TDap): Less than 5yrs Date of Pneumonia Vaccine: Aug 26, 2014 Date of Influenza Vaccine: Nov 09, 2015 Seasonal Allergies Seasonal Allergies: No Past Medical History Surgeries: Yes (CYST OFF WRIST, CYST OFF OVARY, bowel/bladder reconstruction) Adenoidectomy, Bladder Surgery, Bowel Surgery, Hysterectomy, Tonsillectomy Respiratory: No Cardiac: No Neurological: No Headaches /Migraines Reproductive Disorders: No 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 Genitourinary: No Kidney Stones Gastrointestinal: No Musculoskeletal: No Degenerate Disk Disease, Back Injury, Chronic Back Pain Endocrine: No Diabetes, Non-Insulin dep HEENT: No Cancer: No Psychosocial: Yes Depression Integumentary: No Blood Disorders: No Family Medical History Alcoholism 19 FATHER 19 MOTHER Arthritis 19 MOTHER GRANDPARENTS Cardiovascular disease GRANDPARENTS Colon cancer GRANDPARENTS Diabetes mellitus 19 MOTHER Drug abuse 19 FATHER 19 MOTHER G8 BROTHER Myocardial infarction GRANDPARENTS No Pertinent Family Hx Physical Exam Vital Signs - First Documented 08/01/20 10:20 Temp 36.0 Pulse 70 Resp 20 B/P (MAP) 128/93 (105) Pulse Ox 97 O2 Delivery Room Air Capillary Refill : Less Than 3 Seconds Height: 5'4.00" Weight: 236lbs. 5.0oz. 107.082026ly; 33.00 BMI Method:Stated General Appearance: WD/WN, mild distress Eyes: Bilateral Eye Normal Inspection, Bilateral Eye PERRL, Bilateral Eye EOMI HEENT: PERRL/EOMI, normal ENT inspection, pharynx normal Neck: full range of motion, supple, normal inspection Respiratory: lungs clear, normal breath sounds, no respiratory distress, no accessory muscle use Cardiovascular: normal peripheral pulses, regular rate, rhythm, no edema Gastrointestinal: normal bowel sounds, non tender, soft Extremities: non-tender, normal inspection, normal capillary refill Neurologic/Psychiatric: alert, normal mood/affect, oriented x 3 Skin: normal color, warm/dry Progress/Results/Core Measures Suspected Sepsis Recent Fever Within 48 Hours: No Infection Criteria Present: None New/Unexplained Altered Menta: No Sepsis Screen: No Definite Risk SIRS Temperature: Pulse: 70 Respiratory Rate: 20 Blood Pressure 128 /93 Mean: 105 Results/Orders Lab Results Laboratory Tests Test 08/01/20 10:28 Range/Units My Orders Orders - GEORGIANA SUÁREZ Cbc With Automated Diff (08/01/20 10:29) Comprehensive Metabolic Panel (08/01/20 10:29) Hs C Reactive Protein (08/01/20 10:29) Chest 1 View, Ap/Pa Only (08/01/20 10:29) Coronavirus Sars-Cov-2 So 2018 (08/01/20 10:29) Vital Signs/I&O 08/01/20 10:20 Temp 36.0 Pulse 70 Resp 20 B/P (MAP) 128/93 (105) Pulse Ox 97 O2 Delivery Room Air Capillary Refill : Less Than 3 Seconds Blood Pressure Mean: 105 Progress Note : Time: 10:51 Progress Note Aseptic vital signs without acute respiratory distress. Plan to give her some Zofran, Toradol for her headache and body aches and give her a prescription for albuterol inhaler in case her breathing gets worse. We've given her return precautions and expectations. COVID 19 swab. Departure Impression Primary Impression: Upper respiratory infection Qualified Codes: J06.9 - Acute upper respiratory infection, unspecified Additional Impression: Person under investigation for COVID-19 Disposition: 01 HOME, SELF-CARE Condition: Stable Departure-Patient Inst. Decision time for Depature: 10:51 Referrals: [facility] (PCP/Family) Primary Care Physician Patient Instructions: Coronavirus Disease 2019 (COVID-19) (DC) Add. Discharge Instructions: Drink plenty of fluids. Use [id number] throat lozenges and cough medicines as necessary. Tessalon Perles 1 capsule every 6 hours as needed for cough. Ibuprofen 800 mg every 8 hours as necessary for body aches or fever. Tylenol 1000 mg every 8 hours as necessary for body aches or fever. Ondansetron one tablet every 6 hours under the tongue as necessary for nausea or vomiting. 2 puffs of albuterol every 4 hours as necessary for wheezing or shortness of breath. Return to the nearest ER should you experience intractable pain, nausea or shortness of breath despite these medications. Quarantine for the next 10 days and at least 72 hours symptom free before you return to work. All discharge instructions reviewed with patient and/or family. Voiced understanding. Scripts Inhaler, Assist Devices (Breatherite Spacer-Adult Mask) 1 Each Spacer EACH MC for Wheezing, #1 0 Refills Prov: GEORGIANA SUÁREZ 08/01/20 Albuterol Sulfate (PROAIR HFA) 1 Puff Puff 2 PUFF IH Q4H PRN for WHEEZING, #1 EA 0 Refills 1 PUFF = 90 MCG Prov: GEORGIANA SUÁREZ 08/01/20 Benzonatate (TESSALON PERLES) 100 Mg Capsule 100 MG PO Q6H PRN for COUGH, #30 CAP 0 Refills Prov: GEORGIANA SUÁREZ 08/01/20 Ondansetron (Ondansetron Odt) 4 Mg Tab.rapdis 4 MG PO Q6H PRN for NAUSEA/VOMITING, #8 TAB 0 Refills Prov: GEORGIANA SUÁREZ 08/01/20 Work/School Note: Work Release Form Date Seen in the Emergency Department: Aug 01, 2020 Return to Work: Aug 09, 2020 Restrictions: No Restrictions Other Restrictions Listed Below: Must be symptom-free for 72 hours before returning to work. GEORGIANA SUÁREZ Aug 01, 2020 10:53
[2020-08-01] MEDS ORDERED: INHA1INH MC (10:55)
[2020-08-01] MEDS ORDERED: RT-ALBUINH IH (10:55)
[2020-08-01] MEDS ORDERED: BENZ100C18 PO (10:55)
[2020-08-01] MEDS ORDERED: ONDA4TAB11 PO (10:55)
== END 2020-08-01 11:04 | disposition home or self-care (01) ==
LOC: EDUNIT# 09:57 → ER 09:58
DX: J06.9 Acute upper respiratory infection, unspecified (principal); F32.9 Major depressive disorder, single episode, unspecified; G43.909 Migraine, unspecified, not intractable, without status migrainosus; G89.29 Other chronic pain; M54.9 Dorsalgia, unspecified; F17.210 Nicotine dependence, cigarettes, uncomplicated; Z82.49 Family history of ischemic heart disease and other diseases of the circulatory system; Z79.891 Long term (current) use of opiate analgesic; Z20.828 Contact with and (suspected) exposure to other viral communicable diseases; Z88.5 Allergy status to narcotic agent; Z91.041 Radiographic dye allergy status
CPT/HCPCS: 99282; U0002; 87635

== ENCOUNTER 2021-06-11 02:26 | Emergency (ER) | payer OTHER ==
[~2021-06-11] VITALS: Ht 162.5 cm; Wt 100.0 kg
[~2021-06-11 02:26] MED LIST changes: +INHA1INH MC; +ONDA4TAB11 PO; -RISP2TAB3 PO; +RISP2TAB84 PO; +RT-ALBUINH IH; -SULF1TAB35 PO
[2021-06-11] MEDS ORDERED: RX-ALBUTEROL INHALER (VENTOLIN HFA) 18 GM IH STA (02:40)
--- NOTE | 2021-06-11 02:46 | ED Respiratory ---
General Stated Complaint: CP,SORE THROAT,HEA PAIN Source: patient Exam Limitations: no limitations History of Present Illness Date Seen by Provider: Jun 11, 2021 Time Seen by Provider: 02:30 Initial Comments Patient to the ER with her significant other and chief complaint for the past 2 to 3 days she has been having coughing shortness of breath and hurts when she takes a deep breath and all over her chest. She is having nausea but no vomiting. No diarrhea. Fever T-max of 103 yesterday. Last dose of antipyretics was yesterday. No known sick contacts. No Covid vaccination. She smokes cigarettes about a pack cigarettes per day but quit 3 days ago. Allergies and Home Medications Allergies Coded Allergies: codeine (Verified Allergy, Unknown, NAUSEA, 01/10/16) Iodinated Contrast Media (Verified Adverse Reaction, Mild, ITCHING, 12/09/11) Home Medications Albuterol Sulfate 1 Puff Puff, 2 PUFF IH Q4H PRN for WHEEZING 1 PUFF = 90 MCG Prescribed by: GEORGIANA SUÁREZ on 08/01/20 105 Benzonatate 100 Mg Capsule, 100 MG PO Q6H PRN for COUGH Prescribed by: GEORGIANA SUÁREZ on 08/01/20 105 Benzonatate 100 Mg Capsule, 100 MG PO Q6H PRN for COUGH Prescribed by: GEORGIANA SUÁREZ on 06/11/21346 Cephalexin 500 Mg Capsule, 500 MG PO QID Prescribed by: CHARITY HOOKER on 01/02/191932 Famciclovir 500 Mg Tablet, 500 MG PO TID Prescribed by: RIP CROWDER on 12/15/19 162 Gabapentin 300 Mg Capsule, 300 MG PO TID, (Reported) Hydrocodone/Acetaminophen 1 Each Tablet, 1 EACH PO Q6H PRN for PAIN-MODERATE Do not fill unless Bactrim and Keflex is also filled Prescribed by: CHARITY HOOKER on 01/02/191932 Methylprednisolone 4 Mg Tab.ds.pk, 4 MG PO UD PER DOSE PACK INSTRUCTIONS Prescribed by: GEORGIANA SUÁREZ on 06/11/21346 Ondansetron 4 Mg Tab.rapdis, 4 MG PO Q6H PRN for NAUSEA/VOMITING Prescribed by: GEORGIANA SUÁREZ on 08/01/20 105 Ondansetron 4 Mg Tab.rapdis, 4 MG PO Q6H PRN for NAUSEA/VOMITING Prescribed by: GEORGIANA SUÁREZ on 06/11/21 0347 Paroxetine HCl 10 Mg Tablet, 40 MG PO DAILY, (Reported) Promethazine HCl 25 Mg Tablet, 25 MG PO Q8H PRN for NAUSEA/VOMITING Prescribed by: KYLER OSEGUERA on 07/12/16 1309 Sulfamethoxazole/Trimethoprim 1 Each Tablet, 1 EACH PO BID Prescribed by: CHARITY HOOKER on 01/02/19 1933 Sulfamethoxazole/Trimethoprim 1 Each Tablet, 1 EACH PO BID Prescribed by: RIP CROWDER on 12/15/19 1625 Tramadol HCl 50 Mg Tablet, 50 MG PO Q6H Prescribed by: RIP CROWDER on 12/15/19 1626 Patient Home Medication List Home Medication List Reviewed: Yes Review of Systems Review of Systems Constitutional: chills, fever, malaise, weakness EENTM: No ear discharge, No ear pain Respiratory: cough, phlegm, short of breath, wheezing Cardiovascular: No edema, No Hx of Intervention, No palpitations Gastrointestinal: No abdominal pain, No constipation, No diarrhea; nausea; No vomiting Genitourinary: No discharge, No dysuria Musculoskeletal: No back pain, No joint pain All Other Systems Reviewed Negative Unless Noted: Yes Past Tohvvgv-Bvkvhx-Bwknvf Hx Patient Social History Tobacco Use?: Yes Tobacco type used: Cigarettes Smoking Status: Current Everyday Smoker Use of E-Cig and/or Vaping dev: No Substance use?: No Immunizations Up To Date Tetanus Booster (TDap): Less than 5yrs Seasonal Allergies Seasonal Allergies: No Past Medical History Surgeries: Yes (CYST OFF WRIST, CYST OFF OVARY, bowel/bladder reconstruction) Adenoidectomy, Bladder Surgery, Bowel Surgery, Hysterectomy, Tonsillectomy Respiratory: No Cardiac: No Neurological: No Headaches /Migraines Reproductive Disorders: No 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 Genitourinary: No Kidney Stones Gastrointestinal: No Musculoskeletal: No Degenerate Disk Disease, Back Injury, Chronic Back Pain Endocrine: No Diabetes, Non-Insulin dep HEENT: No Cancer: No Psychosocial: Yes Depression Integumentary: No Blood Disorders: No Family Medical History Alcoholism 19 FATHER 19 MOTHER Arthritis 19 MOTHER GRANDPARENTS Cardiovascular disease GRANDPARENTS Colon cancer GRANDPARENTS Diabetes mellitus 19 MOTHER Drug abuse 19 FATHER 19 MOTHER G8 BROTHER Myocardial infarction GRANDPARENTS No Pertinent Family Hx Physical Exam Vital Signs - First Documented 06/11/21 04:06 Temp 37.0 Pulse 86 Resp 24 B/P (MAP) 144/97 (113) Pulse Ox 98 O2 Delivery Room Air Capillary Refill : Height: 5'4.00" Weight: 236lbs. 5.0oz. 107.607259tz; 33.00 BMI Method:Stated General Appearance: WD/WN, no apparent distress Eyes: Bilateral Eye Normal Inspection, Bilateral Eye PERRL, Bilateral Eye EOMI HEENT: PERRL/EOMI, TMs normal; No pharynx normal (Dry oral mucosa) Neck: full range of motion, supple, normal inspection Respiratory: respiratory distress (Mild with oxygen saturations 98% coughing pleuritic chest pains), crackles (Few bilateral), wheezing (Bilateral bases) Cardiovascular: normal peripheral pulses, regular rate, rhythm Gastrointestinal: normal bowel sounds, non tender, soft Extremities: non-tender, normal inspection, normal capillary refill Neurologic/Psychiatric: alert, oriented x 3, other (Anxious affect) Skin: normal color, warm/dry Progress/Results/Core Measures Suspected Sepsis SIRS Temperature: Pulse: Respiratory Rate: Blood Pressure / Mean: Results/Orders Lab Results Laboratory Tests Test 06/11/21 02:40 Range/Units Influenza Type A (RT-PCR) Not Detected Not Detecte Influenza Type B (RT-PCR) Not Detected Not Detecte SARS-CoV-2 RNA (RT-PCR) Detected H Not Detecte My Orders Orders - GEORGIANA SUÁREZ Covid 19 Inhouse Test (06/11/21 02:40) Influenza A And B By Pcr (06/11/21 02:40) Chest 1 View, Ap/Pa Only (06/11/21 02:40) Rx-Albuterol Inhaler (Rx-Ventolin Hfa) (06/11/21 02:40) Ketorolac Injection (Toradol Injection) (06/11/21 03:00) Ondansetron Injection (Zofran Injectio (06/11/21 03:00) Ketorolac Injection (Toradol Injection) (06/11/21 03:45) Ondansetron Injection (Zofran Injectio (06/11/21 03:45) Medications Given in ED Current Medications Medications Dose Ordered Sig/Blanca Route Start Time Stop Time Status Last Admin Dose Admin Ketorolac Tromethamine 60 mg ONCE ONCE IM 06/11/21 03:45 06/11/21 03:46 DC 06/11/21 03:50 60 MG Ondansetron HCl 8 mg ONCE ONCE IM 06/11/21 03:45 06/11/21 03:46 DC 06/11/21 03:50 8 MG Vital Signs/I&O 06/11/21 06/11/21 06/11/21 04:06 04:06 04:10 Temp 37.0 Pulse 86 71 Resp 24 18 B/P (MAP) 144/97 (113) 117/73 Pulse Ox 98 99 O2 Delivery Room Air Room Air Room Air Capillary Refill : Progress Note #1: Time: 02:50 Progress Note Before we initiate a septic work-up for her tachycardia and tachypnea we will get a Covid swab. We will start with just a liter of fluids give her some Zofran and Toradol as well as Rocephin and azithromycin if her Covid swab comes back negative. Chest x-ray. Breathing treatment. Progress Note #2: Time: 03:40 Progress Note The patient's Covid came back positive. We made multiple attempts at an IV stick on the patient and after discussing with the patient elected to just do IM Toradol and Zofran. We will set her up for outpatient therapy as her vital signs are better now. Heart rates in the mid to upper 80s, oxygen saturations have remained 99% on room air. Give her some nausea medicines, Tessalon Perles, Tylenol Motrin and return precautions. Diagnostic Imaging Diagonstic Imaging: Xray Plain Films/CT/US/NM/MRI: chest Comments No acute cardiopulmonary process on 1 view chest x-ray. Reviewed: Reviewed by Me Departure Impression Primary Impression: COVID-19 Additional Impression: COPD exacerbation Disposition: 01 HOME, SELF-CARE Condition: Stable Departure-Patient Inst. Decision time for Depature: 03:44 Referrals: [facility] (PCP/Family) Primary Care Physician Patient Instructions: COVID-19 (DC), COVID-19 Vaccines Add. Discharge Instructions: Drink plenty of fluids. Sports drinks are encouraged. Zofran 1 tablet every 6 hours as necessary for nausea. Ibuprofen 800 mg every 8 hours as necessary for pain or body aches. Tylenol 1000 mg every 8 hours as necessary for body aches or fever. Tessalon Perles 1 capsule every 6 hours as necessary for cough. 2 puffs on the ProAir inhaler every 4 hours as necessary for coughing fits or wheezing. Medrol Dosepak take as prescribed to help with the wheezing and shortness of ai r. Scripts Methylprednisolone (Methylprednisolone Dose Pack) 4 Mg Tab.ds.pk 4 MG PO UD for 6 Days, #21 PKG 0 Refills PER DOSE PACK INSTRUCTIONS Prov: GEORGIANA SUÁREZ 06/11/21 Ondansetron (Ondansetron Odt) 4 Mg Tab.rapdis 4 MG PO Q6H PRN for NAUSEA/VOMITING, #15 TAB 0 Refills Prov: GEORGIANA SUÁREZ 06/11/21 Benzonatate (Tessalon Perle) 100 Mg Capsule 100 MG PO Q6H PRN for COUGH, #30 CAP 0 Refills Prov: GEORGIANA SUÁREZ 06/11/21 Work/School Note: Work Release Form Date Seen in the Emergency Department: Jun 11, 2021 Return to Work: Jun 16, 2021 Restrictions: Return-No Fever (24hrs) Other Restrictions Listed Below: Must be 24 hours symptom-free and 10 days from onset before off isolation. GEORGIANA SUÁREZ Jun 11, 2021 02:46
[2021-06-11] MEDS ORDERED: ONDANSETRON 4 MG/2 ML (SDV) Z0FRAN IVP ONE (03:00)
[2021-06-11] MEDS ORDERED: KETOROLAC 30 MG/ML VIAL IVP ONE (03:00)
[2021-06-11] MEDS ORDERED: ONDANSETRON 4 MG/2 ML (SDV) Z0FRAN IM ONE (03:45)
[2021-06-11] MEDS ORDERED: KETOROLAC 60 MG/2 ML VIAL IM ONE (03:45)
[2021-06-11] MEDS ORDERED: ONDA4TAB11 PO (03:47)
[2021-06-11] MEDS ORDERED: METH4TAB10 PO (03:47)
[2021-06-11] MEDS ORDERED: BENZ-13 PO (03:47)
[2021-06-11 04:10] VITALS: BP 117/73
--- NOTE | 2021-06-11 07:40 | Diagnostic Imaging Report ---
PATIENT HISTORY: Shortness of air, cough. TECHNIQUE: Single frontal view of the chest. COMPARISON: None FINDINGS: The lung volumes are normal. No focal consolidation is seen. No large pleural effusion or pneumothorax is seen. The cardiomediastinal silhouette is normal in size and contour. No acute osseous abnormality is seen. IMPRESSION: No acute pulmonary abnormality seen. Dictated by: Dictated on workstation # [id number]
== END 2021-06-11 03:54 | disposition home or self-care (01) ==
LOC: EDUNIT# 02:26 → ER 02:30
DX: U07.1 COVID-19 (principal); J44.1 Chronic obstructive pulmonary disease with (acute) exacerbation; F32.9 Major depressive disorder, single episode, unspecified; F17.210 Nicotine dependence, cigarettes, uncomplicated; Z79.899 Other long term (current) drug therapy
CPT/HCPCS: 71045; 87636

== ENCOUNTER 2021-09-04 01:29 | Emergency (ER) | payer SELFPAY ==
[~2021-09-04 01:29] MED LIST changes: +BENZ-13 PO; +METH4TAB10 PO
[2021-09-04] MEDS ORDERED: ACYCLOVIR 400 MG TABLET (ZOVIRAX) PO ONE (01:45)
[2021-09-04] MEDS ORDERED: predniSONE 20 MG TAB PO ONE (01:45)
[2021-09-04] MEDS ORDERED: KETOROLAC 60 MG/2 ML VIAL IM ONE (01:45)
--- NOTE | 2021-09-04 01:47 | ED Neurological Problem ---
General Chief Complaint: Neurological Problems Stated Complaint: L SIDE NUMBNESS,L FACIAL DROOP,TROUBLE SPEAKING Source: patient Exam Limitations: no limitations History of Present Illness Date Seen by Provider: Sep 04, 2021 Time Seen by Provider: 01:36 Initial Comments Patient to the ER by private conveyance from home with chief complaint she woke up approximately 1 hour prior with her face drooping and numbness on the right side of her face as well as the anterior two thirds of her tongue. She is never had this before. She has had a headache and some right ear pain and a little bit of a rash the past several days on her arms and legs. No fevers or chills. No vesicles. No history of shingles. She is not having any nausea vomiting diarrhea weakness difficulty walking or loss of control of bowel or bladder. No personal history of heart disease, stroke, familial history of early onset heart disease or stroke. No hypertension, hyperlipidemia. She does smoke cigarettes and last used IV methamphetamines about 2 days ago. Allergies and Home Medications Allergies Coded Allergies: codeine (Verified Allergy, Unknown, NAUSEA, 01/10/16) Iodinated Contrast Media (Verified Adverse Reaction, Mild, ITCHING, 12/09/11) Patient Home Medication List Home Medication List Reviewed: Yes Albuterol Sulfate (Proair Hfa) 1 Puff Puff, 2 PUFF IH Q4H PRN for WHEEZING Prescribed by: GEORGIANA SUÁREZ on 08/01/20 1055 Benzonatate (Tessalon Perles) 100 Mg Capsule, 100 MG PO Q6H PRN for COUGH Prescribed by: GEORGIANA SUÁREZ on 08/01/20 1055 Benzonatate (Tessalon Perle) 100 Mg Capsule, 100 MG PO Q6H PRN for COUGH Prescribed by: GEORGIANA SUÁREZ on 06/11/21 0347 Cephalexin (Keflex) 500 Mg Capsule, 500 MG PO QID Prescribed by: CHARITY HOOKER on 01/02/19 193 Famciclovir (Famciclovir) 500 Mg Tablet, 500 MG PO TID Prescribed by: RIP CROWDER on 12/15/19 1625 Gabapentin (Gabapentin) 300 Mg Capsule, 300 MG PO TID, (Reported) Entered as Reported by: GEOVANNI PENA on 04/05/15 0054 Hydrocodone/Acetaminophen (Hydrocodone/Acetaminophen 5 MG/325 MG TAB) 1 Each Tablet, 1 EACH PO Q6H PRN for PAIN-MODERATE Prescribed by: CHARITY HOOKER on 01/02/191932 Inhaler, Assist Devices (Breatherite Spacer-Adult Mask) 1 Each Spacer, EACH MC, (DME) Prescribed by: GEORGIANA SUÁREZ on 08/01/20 105 Methylprednisolone (Methylprednisolone Dose Pack) 4 Mg Tab.ds.pk, 4 MG PO UD Prescribed by: GEORGIANA SUÁREZ on 06/11/21 0347 Ondansetron (Ondansetron Odt) 4 Mg Tab.rapdis, 4 MG PO Q6H PRN for NAUSEA/VOMITING Prescribed by: GEORGIANA SUÁREZ on 08/01/20 1055 Ondansetron (Ondansetron Odt) 4 Mg Tab.rapdis, 4 MG PO Q6H PRN for NAUSEA/VOMITING Prescribed by: GEORGIANA SUÁREZ on 06/11/21 034 Paroxetine HCl (Paxil) 10 Mg Tablet, 40 MG PO DAILY, (Reported) Entered as Reported by: SHAYY CASTILLO on 01/10/16 1100 Promethazine HCl (Promethazine Tablet) 25 Mg Tablet, 25 MG PO Q8H PRN for NAUSEA/VOMITING Prescribed by: KYLER OSEGUERA on 07/12/16 1309 Sulfamethoxazole/Trimethoprim (Bactrim Ds Tablet) 1 Each Tablet, 1 EACH PO BID Prescribed by: CHARITY HOOKER on 01/02/191932 Sulfamethoxazole/Trimethoprim (Bactrim Ds Tablet) 1 Each Tablet, 1 EACH PO BID Prescribed by: RIP CROWDER on 12/15/191624 Tramadol HCl (Ultram) 50 Mg Tablet, 50 MG PO Q6H Prescribed by: RIP CROWDER on 12/15/19 162 Review of Systems Review of Systems Constitutional: No chills, No fever, No malaise Eyes: Denies Blindness, Denies Blurred Vision Ears, Nose, Mouth, Throat: denies ear pain, denies ear discharge Respiratory: No cough, No phlegm, No short of breath Cardiovascular: No chest pain, No edema Gastrointestinal: No abdominal pain, No nausea, No vomiting Genitourinary: No discharge, No dysuria Musculoskeletal: No back pain, No joint pain Skin: No change in color, No lesions All Other Systems Reviewed Negative Unless Noted: Yes Past Jncmbkq-Bsxwnu-Rermty Hx Patient Social History Tobacco Use?: Yes Use of E-Cig and/or Vaping dev: No Substance use?: Yes Substance type: Methamphetamine (Last use 2 days) Immunizations Up To Date Tetanus Booster (TDap): Less than 5yrs Seasonal Allergies Seasonal Allergies: No Past Medical History Surgeries: Yes (CYST OFF WRIST, CYST OFF OVARY, bowel/bladder reconstruction) Adenoidectomy, Bladder Surgery, Bowel Surgery, Hysterectomy, Tonsillectomy Respiratory: No Cardiac: No Neurological: No Headaches /Migraines Reproductive Disorders: No 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 Genitourinary: No Kidney Stones Gastrointestinal: No Musculoskeletal: No Degenerate Disk Disease, Back Injury, Chronic Back Pain Endocrine: No Diabetes, Non-Insulin dep HEENT: No Cancer: No Psychosocial: Yes Depression Integumentary: No Blood Disorders: No Family Medical History Alcoholism 19 FATHER 19 MOTHER Arthritis 19 MOTHER GRANDPARENTS Cardiovascular disease GRANDPARENTS Colon cancer GRANDPARENTS Diabetes mellitus 19 MOTHER Drug abuse 19 FATHER 19 MOTHER G8 BROTHER Myocardial infarction GRANDPARENTS No Pertinent Family Hx Physical Exam Vital Signs Vital Signs - First Documented 09/04/21 01:34 Temp 36.6 Pulse 94 Resp 16 B/P (MAP) 153/100 (117) Pulse Ox 97 O2 Delivery Room Air Capillary Refill : Height, Weight, BMI Height: 5'4.00" Weight: 236lbs. 5.0oz. 107.428959xp; 37.00 BMI Method:Stated General Appearance: WD/WN, no apparent distress HEENT: PERRL/EOMI (4 mm bilateral), TMs normal, pharynx normal, other (Right facial droop without sparing of the right forehead with decreased sensation over the right face and no mass palpable and a parotid) Neck: full range of motion, supple, normal inspection Respiratory: chest non-tender, lungs clear, normal breath sounds, no respiratory distress, no accessory muscle use Cardiovascular: normal peripheral pulses, regular rate, rhythm Peripheral Pulses: 2+ Radial Pulses (R), 2+ Radial Pulses (L) Gastrointestinal: normal bowel sounds, non tender, soft Extremities: normal inspection, normal capillary refill Neurologic/Psychiatric: alert, normal mood/affect, oriented x 3 Motor/Sensory: sensory deficit, other (7th cranial nerve isolated weakness without sparing of the right forehead muscles) Skin: normal color, warm/dry Stroke Onset of Symptoms Date of Onset of Symptoms: Sep 04, 2021 Time of Symptom Onset: 01:30 Onset of Symptoms: Yes Symptoms onset unknown: Yes (Woke up symptomatic) NIH Stroke Scale Assessment Select: Initial Level of Consciousness: 0=Alert (0), Level of Consciousness-Questions: 0=Answers both month/age (0), LOC Commands: 0=Performs both tasks (0), Gaze: Normal (0), Visual Howard: 0=No visual loss (0), Facial Movement (Facial Paresis): 3=Complete paralysis Right side (3), Motor Function-Arms Right: 0=No drift (0), Motor Function-Arms Left: 0=No drift (0), Motor Function-Legs Right: 0=No drift (0), Motor Function-Legs Left: 0=No drift (0), Limb Ataxia: 0=Absent (0), Sensory: 0=Normal:no loss (0), Best Language: 0=No aphasia (0), Dysarthria: 0=Normal (0), Extinction & Inattention: 0=No abnormality (0), Total: 3 Stroke Thrombolytic Exclusion Age 18 or Over: Yes History of CVA: No IV - TPa Received IV - TPa Procedure Performed?: No (Cranial nerve palsy without central features. Not a stroke.) Progress/Results/Core Measures Results/Orders Lab Results Laboratory Tests Test 09/04/21 01:39 Range/Units Glucometer 120 H 70-110 MG/DL My Orders Orders - GEORGIANA SUÁREZ Acyclovir Capsule/Tablet (Zovirax Caps (09/04/21 01:45) Ketorolac Injection (Toradol Injection) (09/04/21 01:45) Prednisone Tablet (Deltasone Tablet) (09/04/21 01:45) Medications Given in ED Current Medications Medications Dose Ordered Sig/Blanca Route Start Time Stop Time Status Last Admin Dose Admin Acyclovir 800 mg ONCE ONCE PO 09/04/21 01:45 09/04/21 01:48 DC 09/04/21 02:11 800 MG Ketorolac Tromethamine 60 mg ONCE ONCE IM 09/04/21 01:45 09/04/21 01:48 DC 09/04/21 02:12 60 MG Prednisone 80 mg ONCE ONCE PO 09/04/21 01:45 09/04/21 01:48 DC 09/04/21 02:11 80 MG Vital Signs/I&O 09/04/21 01:34 Temp 36.6 Pulse 94 Resp 16 B/P (MAP) 153/100 (117) Pulse Ox 97 O2 Delivery Room Air Progress Progress Note : Time: 02:21 Progress Note Patient has symptoms of a cranial nerve palsy of #7 without sparing of the forehead muscles. This appears to be a peripheral lesion without any mass in the parotid gland to explain it. No evidence of vesicles but she did have a headache and earache prior to this as well as a nonspecific what sounds like a viral exanthem recently. We will treat her Mosquera's palsy with steroids, acyclovir and return precautions. Departure Impression Primary Impression: Mosquera's palsy Disposition: HOME, SELF-CARE Condition: Stable Departure-Patient Inst. Decision time for Depature: 02:25 Referrals: [facility] (PCP/Family) Primary Care Physician Patient Instructions: Mosquera's Palsy (DC) Add. Discharge Instructions: Medrol Dosepak take as prescribed. Tylenol 1000 mg every 8 hours as necessary for pain. Ibuprofen 800 mg or 8 hours as necessary for pain. Acyclovir 800 mg 5 times a day for the next 10 days. Probably return to ER if having new or other symptoms. 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 Tape your eyelid shut to sleep to keep from developing ulcers on the eye. Follow-up with your primary care doctor in 1 to 2 weeks to help manage your symptoms. All discharge instructions reviewed with patient and/or family. Voiced understanding. Scripts Methylprednisolone (Methylprednisolone Dose Pack) 4 Mg Tab.ds.pk 4 MG PO UD for 6 Days, #21 PKG 0 Refills PER DOSE PACK INSTRUCTIONS Prov: GEORGIANA SUÁREZ 09/04/21 Acyclovir (Acyclovir) 800 Mg Tablet 800 MG PO 5XD for 10 Days, #50 TAB 0 Refills Prov: GEORGIANA SUÁREZ 09/04/21 GEORGIANA SUÁREZ Sep 04, 2021 01:47
[2021-09-04] MEDS ORDERED: METH4TAB10 PO (02:27)
[2021-09-04] MEDS ORDERED: ACYC-112 PO (02:27)
[2021-09-04 02:42] VITALS: BP 145/104
== END 2021-09-04 02:42 | disposition home or self-care (01) ==
LOC: EDUNIT# 01:29 → ER 01:33
DX: G51.0 Bell's palsy (principal); F32.9 Major depressive disorder, single episode, unspecified; G89.29 Other chronic pain; M54.9 Dorsalgia, unspecified; E11.9 Type 2 diabetes mellitus without complications; F17.210 Nicotine dependence, cigarettes, uncomplicated; Z79.891 Long term (current) use of opiate analgesic; Z79.899 Other long term (current) drug therapy
CPT/HCPCS: 82947; 99284

== ENCOUNTER 2021-10-26 05:13 | Inpatient (IN) | payer SELFPAY ==
[~2021-10-26] VITALS: Ht 165 cm; Wt 102.0 kg
[~2021-10-26 05:13] MED LIST changes: +ACYC-112 PO
[2021-10-26 05:46] LABS: BILIRUBIN,URINE NEGATIVE (NEGATIVE); CLARITY,URINE CLEAR; COLOR,URINE YELLOW; GLUCOSE, URINE (UA) NEGATIVE (NEGATIVE); KETONES,URINE NEGATIVE (NEGATIVE); LEUKOCYTE ESTERASE ,URINE 3+ (NEGATIVE); NITRITE,URINE NEGATIVE (NEGATIVE); PROTEIN,URINE NEGATIVE (NEGATIVE)
[2021-10-26 05:55] LABS: BACTERIA,URINE MODERATE /HPF; WBC,URINE 50-100 /HPF
[2021-10-26] MEDS ORDERED: LACTATED RINGERS 1,000 ML IV ONE ×2 (06:00→06:01)
[2021-10-26] MEDS ORDERED: ONDANSETRON 4 MG/2 ML (SDV) Z0FRAN IVP ONE (06:00)
[2021-10-26] MEDS ORDERED: KETOROLAC 30 MG/ML VIAL IVP ONE (06:00)
[2021-10-26] MEDS ORDERED: ONDANSETRON 4 MG/2 ML (SDV) Z0FRAN ONE (06:01)
[2021-10-26] MEDS ORDERED: KETOROLAC 30 MG/ML VIAL ONE (06:01)
[2021-10-26 06:05] LABS: BASOPHILS % (AUTO) 0 % (0-10); EOSINOPHILS % (AUTO) 0 % (0-10); HEMATOCRIT 34 % (35-52); HEMOGLOBIN 11.4 g/dL (11.5-16.0); LYMPHOCYTES # (AUTO) 1.9 10^3/uL (1.0-4.0); LYMPHOCYTES % (AUTO) 13 % (12-44); MEAN CORPUSCULAR HEMOGLOBIN 31 pg (25-34); MEAN CORPUSCULAR HGB CONC 34 g/dL (32-36); MEAN CORPUSCULAR VOLUME 92 fL (80-99); MEAN PLATELET VOLUME 9.8 fL (9.0-12.2); MONOCYTES # (AUTO) 0.9 10^3/uL (0.0-1.0); MONOCYTES % (AUTO) 6 % (0-12); NEUTROPHILS # (AUTO) 11.5 10^3/uL (1.8-7.8); NEUTROPHILS % (AUTO) 79 % (42-75); PLATELET COUNT 280 10^3/uL (130-400); WHITE BLOOD COUNT 14.5 10^3/uL (4.3-11.0)
[2021-10-26 06:17] LABS: ALBUMIN 3.6 GM/DL (3.2-4.5); POTASSIUM 3.8 MMOL/L (3.6-5.0)
[2021-10-26 06:18] LABS: CALCIUM 8.1 MG/DL (8.5-10.1)
[2021-10-26 06:20] LABS: TOTAL PROTEIN 5.8 GM/DL (6.4-8.2)
[2021-10-26 06:21] LABS: BILIRUBIN,TOTAL 0.6 MG/DL (0.1-1.0)
[2021-10-26 06:23] LABS: CREATININE SERUM 0.68 MG/DL (0.60-1.30)
[2021-10-26] MEDS ORDERED: fentaNYL INJ 100 MCG/2 ML AMP IVP STA ×2 (06:31→07:15)
[2021-10-26 06:36] LABS: LYMPHOCYTES % (MANUAL) 12 %; MONOCYTES % (MANUAL) 5 %; NEUTROPHILS % (MANUAL) 83 %; RBC MORPH NORMAL
--- NOTE | 2021-10-26 06:36 | Diagnostic Imaging Report ---
PROCEDURE: CT urinary tract, rule out kidney stone. TECHNIQUE: Multiple contiguous axial images were obtained through the abdomen and pelvis without the use of intravenous contrast. Auto Exposure Controls were utilized during the CT exam to meet ALARA standards for radiation dose reduction. INDICATION: 41-year-old female, severe back pain. CORRELATION STUDY: 12/21/2015 FINDINGS: LOWER THORAX: Clear. LIVER: Unremarkable. GALLBLADDER: Present and unremarkable. No bile duct dilatation. SPLEEN: Unremarkable. PANCREAS: Unremarkable. ADRENAL GLANDS: Unremarkable. KIDNEYS: Right kidney and collecting system are unremarkable. There is an approximately 7 x 4 x 6 mm stone in the proximal left ureter, approximately L3 level. This results in currently mild left-sided obstruction with engorgement of the left kidney. Additional small obstructing stone superior pole left kidney. ABDOMINAL AORTA: Unremarkable, nonaneurysmal. GASTROINTESTINAL TRACT: No obstruction or inflammation. Normal appendix. URINARY BLADDER: Unremarkable. REPRODUCTIVE: Unremarkable. OSSEOUS STRUCTURES: No acute abnormality. OTHER: None. IMPRESSION: 1. Approximately 7 mm calcification in the proximal left ureter resulting in mild left-sided obstruction. Dictated by: Dictated on workstation # [id number]
[2021-10-26] MEDS ORDERED: cefTRIAXone 1 GM PRE-MIX 50 ML IV STA (06:41)
--- NOTE | 2021-10-26 06:42 | ED Back Pain ---
General Chief Complaint: Back Problems Stated Complaint: LEFT LOWER ABD PAIN Source of Information: Patient Exam Limitations: No Limitations (HUMPHREY JARRETT MD) History of Present Illness Date Seen by Provider: Oct 26, 2021 Time Seen by Provider: 05:17 Initial Comments This 31-year-old woman presents to the emergency room with complaints of left flank pain that started as a dull ache yesterday morning when she woke up. At 2200 last night the pain suddenly became very intense. Since then she has not been able to get comfortable and pain has remained severe. She states a history of prior kidney stones but reports that prior pain was not this bad. She has had associated nausea and dysuria. She denies fever or vomiting. She tried taking Keflex, MiraLAX, and an enema at home, none of which improved her symptoms. She feels a pressure as though she needs to urinate or have a bowel movement. 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 (HUMPHREY JARRETT MD) Allergies and Home Medications Allergies Coded Allergies: codeine (Verified Allergy, Unknown, NAUSEA, 01/10/16) Iodinated Contrast Media (Verified Adverse Reaction, Mild, ITCHING, 12/09/11) Patient Home Medication List Home Medication List Reviewed: Yes (HUMPHREY JARRETT MD) Acyclovir (Acyclovir) 800 Mg Tablet, 800 MG PO 5XD Prescribed by: GEORGIANA SUÁREZ on 09/04/21 0227 Albuterol Sulfate (Proair Hfa) 1 Puff Puff, 2 PUFF IH Q4H PRN for WHEEZING Prescribed by: GEORGIANA SUÁREZ on 08/01/20 1055 Benzonatate (Tessalon Perles) 100 Mg Capsule, 100 MG PO Q6H PRN for COUGH Prescribed by: GEORGIANA SUÁREZ on 08/01/20 1055 Benzonatate (Tessalon Perle) 100 Mg Capsule, 100 MG PO Q6H PRN for COUGH Prescribed by: GEORGIANA SUÁREZ on 06/11/21 0347 Cephalexin (Keflex) 500 Mg Capsule, 500 MG PO QID Prescribed by: CHARITY HOOKER on 01/02/19 1933 Famciclovir (Famciclovir) 500 Mg Tablet, 500 MG PO TID Prescribed by: RIP CROWDER on 12/15/19 1625 Gabapentin (Gabapentin) 300 Mg Capsule, 300 MG PO TID, (Reported) Entered as Reported by: GEOVANNI PENA on 04/05/15 0054 Hydrocodone/Acetaminophen (Hydrocodone/Acetaminophen 5 MG/325 MG TAB) 1 Each Tab let, 1 EACH PO Q6H PRN for PAIN-MODERATE Prescribed by: CHARITY HOOKER on 01/02/191932 Inhaler, Assist Devices (Breatherite Spacer-Adult Mask) 1 Each Spacer, EACH MC, (DME) Prescribed by: GEORGIANA SUÁREZ on 08/01/20 1055 Methylprednisolone (Methylprednisolone Dose Pack) 4 Mg Tab.ds.pk, 4 MG PO UD Prescribed by: GEORGIANA SUÁREZ on 06/11/21 034 Methylprednisolone (Methylprednisolone Dose Pack) 4 Mg Tab.ds.pk, 4 MG PO UD Prescribed by: GEORGIANA SUÁREZ on 09/04/21 022 Ondansetron (Ondansetron Odt) 4 Mg Tab.rapdis, 4 MG PO Q6H PRN for NAUSEA/VOMITING Prescribed by: GEORGIANA SUÁREZ on 08/01/20 1055 Ondansetron (Ondansetron Odt) 4 Mg Tab.rapdis, 4 MG PO Q6H PRN for NAUSEA/VOMITING Prescribed by: GEORGIANA SUÁREZ on 06/11/21 034 Paroxetine HCl (Paxil) 10 Mg Tablet, 40 MG PO DAILY, (Reported) Entered as Reported by: SHAYY CASTILLO on 01/10/16 1100 Promethazine HCl (Promethazine Tablet) 25 Mg Tablet, 25 MG PO Q8H PRN for NAUSEA/VOMITING Prescribed by: KYLER OSEGUERA on 07/12/16 1309 Sulfamethoxazole/Trimethoprim (Bactrim Ds Tablet) 1 Each Tablet, 1 EACH PO BID Prescribed by: CHARITY HOOKER on 01/02/191932 Sulfamethoxazole/Trimethoprim (Bactrim Ds Tablet) 1 Each Tablet, 1 EACH PO BID Prescribed by: RIP CROWDER on 12/15/191624 Tramadol HCl (Ultram) 50 Mg Tablet, 50 MG PO Q6H Prescribed by: RIP CROWDER on 12/15/191625 Review of Systems Constitutional: no symptoms reported EENTM: no symptoms reported Respiratory: no symptoms reported Cardiovascular: no symptoms reported Gastrointestinal: no symptoms reported Genitourinary: see HPI : No Musculoskeletal: no symptoms reported Skin: no symptoms reported Psychiatric/Neurological: No Symptoms Reported (HUMPHREY JARRETT MD) Past Yjudduh-Amtkmt-[id number] Hx Patient Social History Substance use?: Yes Substance type: Methamphetamine (HUMPHREY JARRETT MD) Immunizations Up To Date Tetanus Booster (TDap): Less than 5yrs (HUMPHREY JARRETT MD) Seasonal Allergies Seasonal Allergies: No (HUMPHREY JARRETT MD) Past Medical History Surgery/Hospitalization HX: HYSTERECTOMY Surgeries: Yes (CYST OFF WRIST, CYST OFF OVARY, bowel/bladder reconstruction) Adenoidectomy, Bladder Surgery, Bowel Surgery, Hysterectomy, Tonsillectomy Respiratory: No Cardiac: No Neurological: Yes Headaches /Migraines Reproductive Disorders: No Female 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 Genitourinary: Yes Kidney Stones Gastrointestinal: No Musculoskeletal: Yes Degenerate Disk Disease, Back Injury, Chronic Back Pain Endocrine: No Diabetes, Non-Insulin dep HEENT: No Cancer: No Psychosocial: Yes Depression Integumentary: No Blood Disorders: No (HUMPHREY JARRETT MD) Family Medical History Alcoholism 19 FATHER 19 MOTHER Arthritis 19 MOTHER GRANDPARENTS Cardiovascular disease GRANDPARENTS Colon cancer GRANDPARENTS Diabetes mellitus 19 MOTHER Drug abuse 19 FATHER 19 MOTHER G8 BROTHER Myocardial infarction GRANDPARENTS No Pertinent Family Hx (HUMPHREY JARRETT MD) Physical Exam Vital Signs Vital Signs - First Documented 10/26/21 05:20 Temp 35.9 Pulse 97 Resp 20 B/P (MAP) 141/96 (111) Pulse Ox 96 O2 Delivery Room Air (KYLER OSEGUERA MD) Vital Signs Capillary Refill : (HUMPHREY JARRETT MD) Height, Weight, BMI Height: 5'4.00" Weight: 236lbs. 5.0oz. 107.574148fu; 37.00 BMI Method:Stated General Appearance: Moderate Distress HEENT: PERRL/EOMI, Normal ENT Inspection Neck: Normal Inspection Cardiovascular: Regular Rate, Rhythm, No Edema, No Murmur Respiratory: Lungs Clear, Normal Breath Sounds, No Accessory Muscle Use, No Respiratory Distress Gastrointestinal: Normal Bowel Sounds, Non Tender, Soft Extremity: Normal Inspection, No Pedal Edema Neurologic/Psychiatric: Alert, Oriented x3, No Motor/Sensory Deficits, Normal Mood/Affect, project intern II-XII Norm as Tested Skin: Normal Color, Warm/Dry (HUMPHREY JARRETT MD) Progress/Results/Core Measures Results/Orders Lab Results Laboratory Tests Test 10/26/21 05:20 10/26/21 06:00 10/26/21 07:00 Range/Units Urine Color YELLOW Urine Clarity CLEAR Urine pH 7.0 5-9 Urine Specific [place] 1.015 L 1.016-1.022 Urine Protein NEGATIVE NEGATIVE Urine Glucose (UA) NEGATIVE NEGATIVE Urine Ketones NEGATIVE NEGATIVE Urine Nitrite NEGATIVE NEGATIVE Urine Bilirubin NEGATIVE NEGATIVE Urine Urobilinogen 0.2 < = 1.0 MG/DL Urine Leukocyte Esterase 3+ H NEGATIVE Urine RBC (Auto) 1+ H NEGATIVE Urine RBC 10-25 H /HPF Urine WBC 50-100 H /HPF Urine Squamous Epithelial Cells 2-5 /HPF Urine Crystals NONE /LPF Urine Bacteria MODERATE H /HPF Urine Casts NONE /LPF Urine Mucus NEGATIVE /LPF Urine Culture Indicated YES White Blood Count 14.5 H 4.3-11.0 10^3/uL Red Blood Count 3.65 L 3.80-5.11 10^6/uL Hemoglobin 11.4 L 11.5-16.0 g/dL Hematocrit 34 L 35-52 % Mean Corpuscular Volume 92 80-99 fL Mean Corpuscular Hemoglobin 31 25-34 pg Mean Corpuscular Hemoglobin Concent 34 32-36 g/dL Red Cell Distribution Width 12.4 10.0-14.5 % Platelet Count 280 130-400 10^3/uL Mean Platelet Volume 9.8 9.0-12.2 fL Immature Granulocyte % (Auto) 0 % Neutrophils (%) (Auto) 79 H 42-75 % Lymphocytes (%) (Auto) 13 12-44 % Monocytes (%) (Auto) 6 0-12 % Eosinophils (%) (Auto) 0 0-10 % Basophils (%) (Auto) 0 0-10 % Neutrophils # (Auto) 11.5 H 1.8-7.8 10^3/uL Lymphocytes # (Auto) 1.9 1.0-4.0 10^3/uL Monocytes # (Auto) 0.9 0.0-1.0 10^3/uL Eosinophils # (Auto) 0.0 0.0-0.3 10^3/uL Basophils # (Auto) 0.0 0.0-0.1 10^3/uL Immature Granulocyte # (Auto) 0.0 0.0-0.1 10^3/uL Neutrophils % (Manual) 83 % Lymphocytes % (Manual) 12 % Monocytes % (Manual) 5 % Blood Morphology Comment NORMAL Sodium Level 138 135-145 MMOL/L Potassium Level 3.8 3.6-5.0 MMOL/L Chloride Level 106 98-107 MMOL/L Carbon Dioxide Level 24 21-32 MMOL/L Anion Gap 8 5-14 MMOL/L Blood Urea Nitrogen 10 7-18 MG/DL Creatinine 0.68 0.60-1.30 MG/DL Estimat Glomerular Filtration Rate 96 BUN/Creatinine Ratio 15 Glucose Level 123 H 70-105 MG/DL Calcium Level 8.1 L 8.5-10.1 MG/DL Corrected Calcium 8.4 L 8.5-10.1 MG/DL Total Bilirubin 0.6 0.1-1.0 MG/DL Aspartate Amino Transf (AST/SGOT) 9 5-34 U/L Alanine Aminotransferase (ALT/SGPT) 11 0-55 U/L Alkaline Phosphatase 53 40-136 U/L C-Reactive Protein High Sensitivity 4.37 H 0.00-0.50 MG/DL Total Protein 5.8 L 6.4-8.2 GM/DL Albumin 3.6 3.2-4.5 GM/DL Lactic Acid Level 0.56 0.50-2.00 MMOL/L (KYLER OSEGUERA MD) My Orders Orders - KYLER OSEGUERA MD Fentanyl Inj (Sublimaze Injection) (10/26/21 06:31) Neis Carlitos Dna Urine Test (10/26/21 06:38) Chlam Dna Probe (10/26/21 06:38) Blood Culture (10/26/21 06:38) Lactic Acid Analyzer (10/26/21 06:38) Ceftriaxone 1 Gm Pre-Mix (Rocephin 1 Gm (10/26/21 06:41) Abdomen/Kub 1view (10/26/21 06:45) Fentanyl Inj (Sublimaze Injection) (10/26/21 07:15) Ed Admission (Communication) (10/26/21 07:18) (KYLER OSEGUERA MD) Medications Given in ED Current Medications Medications Dose Ordered Sig/Blanca Route Start Time Stop Time Status Last Admin Dose Admin Ketorolac Tromethamine 30 mg ONCE ONCE IVP 10/26/21 06:00 10/26/21 06:01 DC 10/26/21 06:04 30 MG Lactated Ringer's 1,000 ml @ 0 mls/hr Q0M ONCE IV 10/26/21 06:00 10/26/21 06:01 DC 10/26/21 06:07 999 MLS/HR Ondansetron HCl 8 mg ONCE ONCE IVP 10/26/21 06:00 10/26/21 06:01 DC 10/26/21 06:04 8 MG (KYLER OSEGUERA MD) Vital Signs/I&O 10/26/21 05:20 Temp 35.9 Pulse 97 Resp 20 B/P (MAP) 141/96 (111) Pulse Ox 96 O2 Delivery Room Air (KYLER OSEGUERA MD) Progress Progress Note : Time: 06:40 Progress Note Patient was seen and examined. Toradol was ordered for initial pain management. Zofran and IV fluids were also administered. Hematuria along with pyuria was noted on urinalysis. CT abdomen pelvis was obtained and ureteral stone was not noted. Care is being transitioned to Dr. OSEGUERA. He has ordered additional pain medication and is adding blood cultures and lactic acid due to concern for pyelonephritis associated with ureteral stone. Labs are also being added to evaluate for gonorrhea and chlamydia as patient reports vaginal discharge. She has had hysterectomy. (HUMPHREY JARRETT MD) Progress Note : Progress Note 0719: I have given an additional dose of fentanyl 75 mcg IV for persistent pain. I did discuss the case with Dr. Pena, on-call urologist regarding patient's current situation. He will see the patient in consult and request patient n.p.o. We have ordered Rocephin 1 g IV. This will be given after second blood culture. She does have elevated white count, elevated CRP and urine consistent with urinary tract infection concerning for early sepsis and/or pyelonephritis. KUB has been ordered and complete for following stone per urology protocol. I did discuss the case with Dr. Noguera and she accepts patient for admission, inpatient status. She will initiate orders. Findings and concerns discussed with patient who agrees with plan. (KYLER OSEGUERA MD) Diagnostic Imaging Diagonstic Imaging: CT Plain Films/CT/US/NM/MRI: abdomen, pelvis Comments [facility], [place] NAME: CONCEPCION HARRISON REC#: [id number] PT STATUS: REG ER : 1980 PHYSICIAN: HUMPHREY JARRETT MD ADMIT DATE: 10/26/21/ER Draft Date of Exam:10/26/21 CT ABD/PELVIS WO(KIDNEY STONE) PROCEDURE: CT urinary tract, rule out kidney stone. TECHNIQUE: Multiple contiguous axial images were obtained through the abdomen and pelvis without the use of intravenous contrast. Auto Exposure Controls were utilized during the CT exam to meet ALARA standards for radiation dose reduction. INDICATION: 41-year-old female, severe back pain. CORRELATION STUDY: 12/21/2015 FINDINGS: LOWER THORAX: Clear. LIVER: Unremarkable. GALLBLADDER: Present and unremarkable. No bile duct dilatation. SPLEEN: Unremarkable. PANCREAS: Unremarkable. ADRENAL GLANDS: Unremarkable. KIDNEYS: Right kidney and collecting system are unremarkable. There is an approximately 7 x 4 x 6 mm stone in the proximal left ureter, approximately L3 level. This results in currently mild left-sided obstruction with engorgement of the left kidney. Additional small obstructing stone superior pole left kidney. ABDOMINAL AORTA: Unremarkable, nonaneurysmal. GASTROINTESTINAL TRACT: No obstruction or inflammation. Normal appendix. URINARY BLADDER: Unremarkable. REPRODUCTIVE: Unremarkable. OSSEOUS STRUCTURES: No acute abnormality. OTHER: None. IMPRESSION: 1. Approximately 7 mm calcification in the proximal left ureter resulting in mild left-sided obstruction. Dictated on workstation # [id number] Dict: 10/26/21 0631 Trans: 10/26/21 0636 DO [id number] Interpreted by: HARPAL ESTEVEZ DO Electronically signed by: Reviewed: Reviewed by Me Diagonstic Imaging: Xray Plain Films/CT/US/NM/MRI: abdomen Comments Stone protocol evaluation. See final report for details. Reviewed: Reviewed by Me (KYLER OSEGUERA MD) Departure Communication (Admissions) Time/Spoke to Admitting Phy: 07:19 Time/Spoke to Consulting Phy: 07:10 (KYLER OSEGUERA MD) Impression Primary Impression: Pyelonephritis Additional Impressions: Left ureteral stone Left flank pain Disposition: ADMITTED INPATIENT Condition: Improved Admissions Decision to Admit Reason: Admit from ER (General) Decision to Admit/Date: Oct 26, 2021 Time/Decision to Admit Time: 07:10 (KYLER OSEGUERA MD) Departure-Patient Inst. Referrals: [facility] [place] ([place]) Primary Care Physician HUMPHREY JARRETT MD Oct 26, 2021 06:42 KYLER OSEGUERA MD Oct 26, 2021 07:27
--- NOTE | 2021-10-26 07:42 | Diagnostic Imaging Report ---
INDICATION: Abdominal pain. Comparison: CT scan of 10/26/2021 at 6:19 a.m.. FINDINGS: The left ureteral calculus noted at the level of the L3 on the left on CT scan now appears to probably overlying the proximal sacrum. No other calculi are seen. The bowel gas pattern is normal. No organomegaly. IMPRESSION: The left ureteral calculus likely has advanced and now resides over the proximal left sacrum. This is difficult to visualize. Dictated by: Dictated on workstation # [id number]
[2021-10-26 08:49] VITALS: BP 135/82
[2021-10-26] MEDS ORDERED: PROMETHAZINE INJ 25 MG/ML (PHENERGAN) AMP IM PRN (09:15)
[2021-10-26] MEDS ORDERED: LOPERAMIDE 2 MG (IMODIUM) TABLET PO PRN (09:15)
[2021-10-26] MEDS ORDERED: ALPRAZolam 0.25 MG (XANAX) TAB PO PRN (09:15)
[2021-10-26] MEDS ORDERED: ONDANSETRON 4 MG/2 ML (SDV) Z0FRAN IVP PRN (09:15)
[2021-10-26] MEDS ORDERED: CALCIUM CARBONATE 500 MG (TUMS) TAB.CHEW PO PRN (09:15)
[2021-10-26] MEDS ORDERED: MELATONIN 3 MG TABLET PO PRN (09:15)
[2021-10-26] MEDS ORDERED: diphenhydrAMINE 25 MG TAB (BENADRYL) PO PRN (09:15)
[2021-10-26 09:46] LABS: AMPHETAMINE SCREEN, URINE POSITIVE (NEGATIVE); BARBITURATE SCREEN URINE NEGATIVE (NEGATIVE); BENZODIAZEPINES SCREEN URINE NEGATIVE (NEGATIVE); CANNABINOID SCREEN, URINE NEGATIVE (NEGATIVE); COCAINE SCREEN URINE NEGATIVE (NEGATIVE); METHADONE STAT NEGATIVE (NEGATIVE); METHAMPHETAMINE SCREEN URINE S POSITIVE (NEGATIVE); OPIATE SCREEN URINE NEGATIVE (NEGATIVE); OXYCODONE STAT NEGATIVE (NEGATIVE); PROPOXYPHENE STAT NEGATIVE (NEGATIVE); TRICYCLIC ANTIDEPRESSANTS SCRE NEGATIVE (NEGATIVE)
[2021-10-26 10:03] LABS: AMPHETAMINE SCREEN, URINE POSITIVE (NEGATIVE); BARBITURATE SCREEN URINE NEGATIVE (NEGATIVE); BENZODIAZEPINES SCREEN URINE NEGATIVE (NEGATIVE); CANNABINOID SCREEN, URINE NEGATIVE (NEGATIVE); COCAINE SCREEN URINE NEGATIVE (NEGATIVE); METHADONE STAT NEGATIVE (NEGATIVE); METHAMPHETAMINE SCREEN URINE S POSITIVE (NEGATIVE); OPIATE SCREEN URINE NEGATIVE (NEGATIVE); OXYCODONE STAT NEGATIVE (NEGATIVE); PROPOXYPHENE STAT NEGATIVE (NEGATIVE); TRICYCLIC ANTIDEPRESSANTS SCRE NEGATIVE (NEGATIVE)
[2021-10-26] MEDS: NS IV 1000 ML 1,000 ML IV SCH ×2 (10:18→18:41)
[2021-10-26] MEDS: fentaNYL INJ 100 MCG/2 ML AMP IVP PRN ×3 (10:23→19:59)
[2021-10-26] MEDS ORDERED: FLU QUADRIvalent (3YOA+) 60 mcg/0.5 ml 2021-22(AFLURIA) IM ONE (11:15)
[2021-10-26] MEDS ORDERED: ACETAMINOPHEN 325 MG TABLET PO PRN (11:15)
[2021-10-26] MEDS ORDERED: ACET-2267 PO (11:44)
[2021-10-26] MEDS ORDERED: POLY17PO6 PO (11:44)
[2021-10-26] MEDS ORDERED: ACET500P24 PO (11:44)
[2021-10-26 12:00] VITALS: BP 168/98
--- NOTE | 2021-10-26 12:12 | History & Physical-Hospitalist ---
FATEMEH EPPS MED STUDENT 10/26/21 1212: History of Present Illness HPI/Chief Complaint CC- Ureteral Stone Mrs. Harrison is a 41 yo female that presented this morning to the ED due to severe back pain. She states that about 3 days ado she noticed that she was developing some L sided back pain. She rates the pain as sharp, constant and severe now and radiates into her groin. She did have pain with urination and states it felt like she was being punched in the groin. She denies any pain or difficulty with bowel movements. She states that the pain had gotten worse in the three days since onset and it is worse now than it had ever been. She has tried taking some medications to help her pain that include keflex miralax, and an enema. She received minimal relief from her pain. She states that being hit, standing and sitting makes the pain worse. She does complain of nausea with no vomiting that has been present for the past day. Back and groin pain, and R leg swelling. She denies vomiting, CP, SOB, ABD pain. She does complain of some constipation and says it has been a few days since her last BM. During interview patient is very uncomfortable and tearful and has difficulty focusing on answering questions. Source: patient Exam Limitations: no limitations Date Seen 10/26/21 Time Seen by a Provider: 12:05 Attending Physician Moni Sawyer DO [facility] Referring Physician Date of Admission Oct 26, 2021 at 07:19 Home Medications & Allergies Home Medications Reviewed patient Home Medication Reconciliation performed by pharmacy medication reconciliations obstetrics technician and/or nursing. Patients Allergies have been reviewed. Allergies Allergies Coded Allergies codeine (Verified Allergy, Unknown, NAUSEA, 01/10/16) Iodinated Contrast Media (Verified Adverse Reaction, Mild, ITCHING, 12/09/11) Past Stlwlgw-Yqmdht-Agurdq Hx Patient Social History Tobacco Use?: Yes Tobacco type used: Cigarettes Smoking Status: Current Everyday Smoker Smokeless Tobacco Frequency: Never a User Use of E-Cig and/or Vaping dev: No Use of E-Cig and/or Vaping Valentin: Never a User Substance use?: Yes Substance type: Methamphetamine Substance frequency: Once in a while Alcohol Use?: No Pt feels they are or have been: No Immunizations Up To Date Date of Influenza Vaccine: Nov 09, 2015 First/Initial COVID19 Vaccinat: No Vaccine Second COVID19 Vaccination Praveen: No Vaccine Tetanus Booster (TDap): Less Than 5 Years Hepatitis A: No Hepatitis B: No Date of Pneumonia Vaccine: Aug 26, 2014 Seasonal Allergies Seasonal Allergies: No Current Status status: No status: No Advance Directives: No Advance Directive Location: Home Communicates: Verbally Primary Language: Pakistani Preferred Spoken Language: Pakistani Is interpretation needed?: No Implanted or Applied Medical D: None Past Medical History Surgeries: Adenoidectomy, Bladder Surgery, Bowel Surgery, Hysterectomy, Tonsillectomy Headaches /Migraines MEDICINE TECH History: Hysterectomy Kidney Stones Degenerate Disk Disease, Back Injury, Chronic Back Pain Diabetes, Non-Insulin dep Depression Blood Disorders: No Family Medical History Alcoholism 19 FATHER 19 MOTHER Arthritis 19 MOTHER GRANDPARENTS Cardiovascular disease GRANDPARENTS Colon cancer GRANDPARENTS Diabetes mellitus 19 MOTHER Drug abuse 19 FATHER 19 MOTHER G8 BROTHER Myocardial infarction GRANDPARENTS No Pertinent Family Hx Review of Systems Constitutional: No chills, No diaphoresis, No dizziness, No fever EENTM: No blurred vision Respiratory: No cough, No hemoptysis, No phlegm, No short of breath Cardiovascular: No chest pain; edema (R leg); No palpitations Gastrointestinal: No abdominal pain; constipation; No diarrhea, No hematemesis, No melena; nausea; No vomiting Genitourinary: dysuria, frequency; No hematuria; pain Musculoskeletal: back pain (L side CVA); No joint pain Skin: No lesions, No rash Psychiatric/Neurological: Headache Physical Exam Physical Exam Vital Signs Vital Signs - First Documented 10/26/21 05:20 Temp 35.9 Pulse 97 Resp 20 B/P (MAP) 141/96 (111) Pulse Ox 96 O2 Delivery Room Air Capillary Refill : Height, Weight, BMI Height: 5'4.00" Weight: 236lbs. 5.0oz. 107.299643aw; 37.46 BMI Method:Stated General Appearance: Moderate Distress, Obese Eyes: Bilateral Eye Normal Inspection, Bilateral Eye PERRL HEENT: PERRL/EOMI, Pharynx Normal, Moist Mucous Membranes Neck: Non Tender Respiratory: Chest Non Tender, Lungs Clear, Normal Breath Sounds, No Accessory Muscle Use, No Respiratory Distress Cardiovascular: Regular Rate, Rhythm, No Edema, No Murmur, Normal Peripheral Pulses Gastrointestinal: Normal Bowel Sounds, No Organomegaly, No Pulsatile Mass, Non Tender, Soft Rectal: Deferred Back: CVA Tenderness (L) Extremity: Normal Capillary Refill, Normal Inspection, Normal Range of Motion, Non Tender, No Calf Tenderness, No Pedal Edema Neurologic/Psychiatric: Alert, Oriented x3 Skin: Normal Color, Warm/Dry Results Results/Procedures Labs Laboratory Tests 10/26/21 06:00 Patient resulted labs reviewed. Imaging NAME: [facility] REC#: [id number] PT STATUS: ADM IN : 1980 PHYSICIAN: KYLER OSEGUERA MD ADMIT DATE: 10/26/21 Signed Date of Exam:10/26/21 ABDOMEN/KUB 1VIEW INDICATION: Abdominal pain. Comparison: CT scan of 10/26/2021 at 6:19 a.m.. FINDINGS: The left ureteral calculus noted at the level of the L3 on the left on CT scan now appears to probably overlying the proximal sacrum. No other calculi are seen. The bowel gas pattern is normal. No organomegaly. IMPRESSION: The left ureteral calculus likely has advanced and now resides over the proximal left sacrum. This is difficult to visualize. Dictated by: Dictated on workstation # [id number] NAME: [facility] REC#: [id number] PT STATUS: ADM IN : 1980 PHYSICIAN: HUMPHREY JARRETT MD ADMIT DATE: 10/26/21 Signed Date of Exam:10/26/21 CT ABD/PELVIS WO(KIDNEY STONE) PROCEDURE: CT urinary tract, rule out kidney stone. TECHNIQUE: Multiple contiguous axial images were obtained through the abdomen and pelvis without the use of intravenous contrast. Auto Exposure Controls were utilized during the CT exam to meet ALARA standards for radiation dose reduction. INDICATION: 41-year-old female, severe back pain. CORRELATION STUDY: 12/21/2015 FINDINGS: LOWER THORAX: Clear. LIVER: Unremarkable. GALLBLADDER: Present and unremarkable. No bile duct dilatation. SPLEEN: Unremarkable. PANCREAS: Unremarkable. ADRENAL GLANDS: Unremarkable. KIDNEYS: Right kidney and collecting system are unremarkable. There is an approximately 7 x 4 x 6 mm stone in the proximal left ureter, approximately L3 level. This results in currently mild left-sided obstruction with engorgement of the left kidney. Additional small obstructing stone superior pole left kidney. ABDOMINAL AORTA: Unremarkable, nonaneurysmal. GASTROINTESTINAL TRACT: No obstruction or inflammation. Normal appendix. URINARY BLADDER: Unremarkable. REPRODUCTIVE: Unremarkable. OSSEOUS STRUCTURES: No acute abnormality. OTHER: None. IMPRESSION: 1. Approximately 7 mm calcification in the proximal left ureter resulting in mild left-sided obstruction. Assessment/Plan Admission Diagnosis Ureteral Stone/UTI Admission Status: Inpatient Order (span 2 midnights) Reason for Inpatient Admission: Pain control-Possible surgical intervention-UTI Assessment and Plan Assessment and Plan: L sided Ureteral Stone -IV Fluids -NPO, Urology consulted and request NPO, may operate -Pain meds UTI -Likely caused by blockage of ureter -Started ABX Severe Back pain -Symptom of Ureteral stone, PT on pain meds Leukocytosis -Due to stress and UTI Clinical Quality Measures DVT/VTE Risk/Contraindication: Contraindications-Pharm: Other *list below* Other: procedure Supervisory-Addendum Brief Verification & Attestation Participated in pt care: history, physical Personally performed: exam, history Care discussed with: Medical Student Procedures: n/a n/a MONI SAWYER DO 10/27/21 0519: History of Present Illness HPI/Chief Complaint CC: Pyelonephritis with kidney stone HPI: This is [id number] who presented to the ER with flank pain and fever found to have pyelonephritis and a left ureteral stone. Dr. Alvarez has placed her NPO and placed her on antibiotics, IV fluids, pain medication, antiemetics and will plan for procedure. Source: patient Exam Limitations: no limitations Past Aipiwud-Xwtmln-Tiyyqr Hx Patient Social History Marrital Status: single Employed/Student: unemployed Smoking Status: Light Tobacco Smoker Family Medical History Alcoholism 19 FATHER 19 MOTHER Arthritis 19 MOTHER GRANDPARENTS Cardiovascular disease GRANDPARENTS Colon cancer GRANDPARENTS Diabetes mellitus 19 MOTHER Drug abuse 19 FATHER 19 MOTHER G8 BROTHER Myocardial infarction GRANDPARENTS Review of Systems Constitutional: see HPI, malaise, weakness Respiratory: no symptoms reported Cardiovascular: no symptoms reported Gastrointestinal: loss of appetite, nausea, vomiting Physical Exam Physical Exam General Appearance: Anxious, Chronically ill, Mild Distress, Obese Eyes: Right Eye Normal Inspection, Right Eye PERRL HEENT: PERRL/EOMI, Normal ENT Inspection, Pharynx Normal, Moist Mucous Membranes Neck: Full Range of Motion, Normal Inspection, Non Tender Respiratory: Chest Non Tender, Lungs Clear, Normal Breath Sounds, No Accessory Muscle Use, No Respiratory Distress Cardiovascular: Regular Rate, Rhythm, No Edema, No Gallop, No JVD, No Murmur, Normal Peripheral Pulses Gastrointestinal: Normal Bowel Sounds, No Organomegaly, No Pulsatile Mass, Non Tender, Soft Back: Normal Inspection, No CVA Tenderness, No Vertebral Tenderness Extremity: Normal Capillary Refill, Normal Inspection, Normal Range of Motion, Non Tender, No Calf Tenderness, No Pedal Edema Neurologic/Psychiatric: Alert, Oriented x3, No Motor/Sensory Deficits, Normal Mood/Affect Skin: Normal Color, Warm/Dry Lymphatic: No Adenopathy Assessment/Plan Admission Diagnosis Assessment: Sepsis Pyelonephritis Left ureteral stone Morbid obesity BMI 37 Plan: IV antibiotics Pain meds Urology consult Admission Status: Inpatient Order (span 2 midnights) Reason for Inpatient Admission: Sepsis Supervisory-Addendum Brief Verification & Attestation Participated in pt care: history, MDM, physical Personally performed: exam, history, MDM, supervision of care Care discussed with: Medical Student Procedures: n/a Results interpretation: Verified all documentation Verification and Attestation of Medical Student E/M Service A medical student performed and documented this service in my presence. I revie wed and verified all information documented by the medical student and made modifications to such information, when appropriate. I personally performed the physical exam and medical decision making. Moni Sawyer Oct 27, 2021,05:19 FATEMEH EPPS MED STUDENT Oct 26, 2021 12:12 MONI SAWYER DO Oct 27, 2021 05:19
--- NOTE | 2021-10-26 13:01 | CONSULTATION REPORT ---
DATE OF SERVICE: 10/26/2021 ATTENDING PHYSICIAN: Dr. Beyer. SUMMARY: A 41-year-old white lady admitted through the emergency room with left flank pain and UTI. CT scan showed a stone in the left proximal ureter causing mild hydro. A KUB followed showed the stone to have probably moved down from the top of the sacrum. The patient was admitted for IV hydration and antibiotics. On physical exam, she does not look septic. She is hungry. She has a mild left CVA tenderness. IMPRESSION: Left proximal ureteral stone with UTI and pain. RECOMMENDATIONS: Treat present infection with IV antibiotics, hydration, strain all urine and follow the stone by KUB. The stone may be able to be passed on its own, which would be ideally before any intervention and would like to control the infection and the surgical intervention will depend upon the site where the stone is. The plan was fully explained to the patient. We will go ahead and feed her, keep her n.p.o. after midnight, get a KUB in the morning to check the progress of the stone. We will also get a urine drug screen because she takes drugs namely meth and manage accordingly. Job ID: [id number] DocumentID: [id number] Dictated Date: 10/26/2021 09:41:53 Laboratory Helper Date: 10/26/2021 13:00:47 Dictated By: MAILE HA MD
[2021-10-26 15:45] VITALS: BP 131/88
[2021-10-26] MEDS: KETOROLAC 30 MG/ML VIAL IVP PRN (18:45)
[2021-10-26] MEDS: SENNA W/DOCUSATE (SENOKOT S) TABLET PO SCH (19:59)
[2021-10-26 20:00] VITALS: BP 136/70
[2021-10-27] VITALS: BP 111/65
[2021-10-27] MEDS: KETOROLAC 30 MG/ML VIAL IVP PRN ×2 (01:38→08:16)
[2021-10-27] MEDS: NS IV 1000 ML 1,000 ML IV SCH ×2 (03:31→08:12)
[2021-10-27 04:00] VITALS: BP 130/71
[2021-10-27] MEDS: HYDROmorphone 2 MG/ML VIAL (DILAUDID) IVP PRN ×2 (04:18→06:24)
[2021-10-27 06:20] LABS: BASOPHILS % (AUTO) 0 % (0-10); EOSINOPHILS # (AUTO) 0.1 10^3/uL (0.0-0.3); EOSINOPHILS % (AUTO) 1 % (0-10); HEMATOCRIT 31 % (35-52); HEMOGLOBIN 10.5 g/dL (11.5-16.0); LYMPHOCYTES # (AUTO) 2.7 10^3/uL (1.0-4.0); LYMPHOCYTES % (AUTO) 21 % (12-44); MEAN CORPUSCULAR HEMOGLOBIN 32 pg (25-34); MEAN CORPUSCULAR HGB CONC 33 g/dL (32-36); MEAN CORPUSCULAR VOLUME 95 fL (80-99); MEAN PLATELET VOLUME 10.1 fL (9.0-12.2); MONOCYTES # (AUTO) 1.4 10^3/uL (0.0-1.0); MONOCYTES % (AUTO) 11 % (0-12); NEUTROPHILS # (AUTO) 8.9 10^3/uL (1.8-7.8); NEUTROPHILS % (AUTO) 68 % (42-75); PLATELET COUNT 250 10^3/uL (130-400)
[2021-10-27 06:35] LABS: ALBUMIN 3.1 GM/DL (3.2-4.5); POTASSIUM 3.6 MMOL/L (3.6-5.0)
[2021-10-27 06:38] LABS: TOTAL PROTEIN 5.2 GM/DL (6.4-8.2)
[2021-10-27 06:40] LABS: BILIRUBIN,TOTAL 0.5 MG/DL (0.1-1.0)
[2021-10-27 06:41] LABS: CREATININE SERUM 0.63 MG/DL (0.60-1.30)
[2021-10-27 08:00] VITALS: BP 127/68
[2021-10-27] MEDS: SENNA W/DOCUSATE (SENOKOT S) TABLET PO SCH (08:12)
[2021-10-27] MEDS ORDERED: cefTRIAXone 1 GM PRE-MIX 50 ML IV SCH (09:00)
--- NOTE | 2021-10-27 09:37 | Progress Note - Urology ---
Progress Note-Urology Progress Notes/Assess & Plan Progress/Assessment & Plan AFEBRILE, VSS. STILL HURTS. STONE NO CHANGE. I WAS PLANNING OR TODAY, BUT DRUG SCREEN POSITIVE X 2 WITH 2 DRUGS. GA CONTRAINDICATED BECAUSE OF LETHAL COMPLICATIONS. DISCUSS PLAN WITH PATIENT. DC TODAY OR TOMORROW ON ABX AND PAIN MEDS. STAY OFF DRUGS. IF PROBLEMS SEEK HELP AT [facility] OR [facility] ED, PATIENT KNOWS THAT I WILL BE GONE STARTING TOMORROW. DR SAWYER TO DECIDE Final Diagnosis LT URETERAL STONE MAILE HA MD Oct 27, 2021 09:37
--- NOTE | 2021-10-27 09:46 | Diagnostic Imaging Report ---
Indication: Abdominal pain. Left ureteral calculus noted on previous CT scan. FINDINGS: There is a calculus demonstrated today at the region of the left 3rd transverse process. This was not appreciated on the previous exam. This is within the mid left ureter and does not appear to be significantly changed in location from previous CT scan. This measures approximately 6 x 4 mm. No other calculi are noted. There are phleboliths in the pelvis. Bowel gas pattern is normal. IMPRESSION: Mid left ureteral calculus at the level of L3 transverse process. This has not changed significantly in location from previous CT scan. Comparison with 10/26/2021. Dictated by: Dictated on workstation # [id number]
[2021-10-27] MEDS ORDERED: CEFD300C3 PO (10:15)
[2021-10-27] MEDS ORDERED: OXC5T PO (10:15)
[2021-10-27] MEDS ORDERED: ONDA4TAB11 PO (10:15)
--- NOTE | 2021-10-27 10:16 | Discharge Summary ---
Discharge Summary Hospital Course Was the Problem List Reviewed?: Yes Problems/Dx: (1) Pyelonephritis Status: Acute (2) Left ureteral stone Status: Acute Hospital Course Date of Admission: Oct 26, 2021 at 07:19 Admission Diagnosis : [facility] Physician[facility] [place] Date of Discharge: 10/27/21 Discharge Diagnosis: Acute pyelonephritis, left ureteral stone, meth use Hospital Course: Hospital Course; Pt had a brief hospital course where she was admitted for pyelonephritis and left ureteral stone. Dr. Alvarez saw her in consultation and was planning on doing the procedure but meth was still positive in her system consistent with really recent use and she was not telling the full story so she was discharged with antibiotics and pain medication and antiemetics and mild hydronephrosis and will need close outpatient follow up. Labs and Pending Lab Test: Laboratory Tests 10/27/21 05:48: White Blood Count 13.0H, Red Blood Count 3.32L, Hemoglobin 10.5L, Hematocrit 31L , Mean Corpuscular Volume 95, Mean Corpuscular Hemoglobin 32, Mean Corpuscular Hemoglobin Concent 33, Red Cell Distribution Width 12.4, Platelet Count 250, Mean Platelet Volume 10.1, Immature Granulocyte % (Auto) 0, Neutrophils (%) (Auto) 68, Lymphocytes (%) (Auto) 21, Monocytes (%) (Auto) 11, Eosinophils (%) (Auto) 1, Basophils (%) (Auto) 0, Neutrophils # (Auto) 8.9H, Lymphocytes # (Auto) 2.7, Monocytes # (Auto) 1.4H, Eosinophils # (Auto) 0.1, Basophils # (Auto) 0.0, Immature Granulocyte # (Auto) 0.0, Sodium Level 137, Potassium Level 3.6, Chloride Level 105, Carbon Dioxide Level 24, Anion Gap 8, Blood Urea Nitrogen 10, Creatinine 0.63, Estimat Glomerular Filtration Rate 105, BUN/Creati nine Ratio 16, Glucose Level 133H, Calcium Level 8.0L, Corrected Calcium 8.7, Total Bilirubin 0.5, Aspartate Amino Transf (AST/SGOT) 17, Alanine Aminotransferase (ALT/SGPT) 14, Alkaline Phosphatase 47, Total Protein 5.2L, Albumin 3.1L Home Meds Active Ondansetron Odt (Ondansetron) 4 Mg Tab.rapdis 4 Mg PO 1000 Cefdinir 300 Mg Capsule 300 Mg PO BID Reported Miralax (Polyethylene Glycol 3350) 17 Gm Powd.pack 17 Gm PO DAILY PRN Tylenol Extra Strength (Acetaminophen) 500 Mg Tablet 1,000-1,500 Mg PO Q8H PRN Assessment/Pt Instructions PCP in 1 week Discharge Planning: <30 minutes discharge planning Discharge Instructions Discharge Diet: No Restrictions Discharge Physical Examination Vital Signs Vital Signs Date Time Temp Pulse Resp B/P (MAP) Pulse Ox O2 Delivery O2 Flow Rate FiO2 10/27/21 08:20 Room Air 10/27/21 08:00 36.8 79 20 127/68 (87) 95 General Appearance: No Apparent Distress, WD/WN, Chronically ill Allergies: Coded Allergies: codeine (Verified Allergy, Unknown, NAUSEA, 01/10/16) Iodinated Contrast Media (Verified Adverse Reaction, Mild, ITCHING, 12/09/11) Discharge Summary Date of Admission Oct 26, 2021 at 07:19 Date of Discharge Discharge Date: Oct 27, 2021 Admission Diagnosis Assessment: Sepsis Pyelonephritis Left ureteral stone Morbid obesity BMI 37 Plan: IV antibiotics Pain meds Urology consult Clinical Quality Measures DVT/VTE Risk/Contraindication: Contraindications-Pharm: Other *list below* Other: procedure ROMULO SAWYER DO Oct 27, 2021 10:16
[2021-10-27] MEDS ORDERED: KETO15CR2 TP (10:48)
[2021-10-27 11:48] VITALS: BP 137/68
[2021-10-27 13:07] VITALS: BP 137/68
--- NOTE | 2021-10-27 13:28 | Progress Note ---
FATEMEH EPPS MED STUDENT 10/27/21 1328: Progress Note Mrs. Limon is a 41 yo female that presented to the ED on 10/26 for low back pain. She was found to have a L sided ureteral stone and was admitted for management. Urology was consulted. She did have some mild hydronephrosis and urology was going to operate on stone but her UDS came back positive and it was not safe for her to undergo surgery. Urology advises that she should be able to pass the stone on her own and reccomends she be discharged. She was discharged on 10/27 with oral ABX, pain medication, and anti emetics and advised that if she has any further complications she should go to [facility] due to urology being unavailable in the next couple of days. Other than some pain she had an uneventful hospital stay and did not have any concerns or questions at time of discharge. She was also noted to have developed some athletes foot at time of discharge and was also sent home with some cream for that as well. Supervisory-Addendum Brief Verification & Attestation Participated in pt care: history, physical Personally performed: exam, history Care discussed with: Medical Student Procedures: n/a n/a MONI SAWYER DO 10/28/21 0514: Supervisory-Addendum Brief Verification & Attestation Participated in pt care: history, MDM, physical Personally performed: exam, history, MDM, supervision of care Care discussed with: Medical Student Procedures: n/a Results interpretation: Verified all documentation Verification and Attestation of Medical Student E/M Service A medical student performed and documented this service in my presence. I r eviewed and verified all information documented by the medical student and made modifications to such information, when appropriate. I personally performed the physical exam and medical decision making. Moni Sawyer, Oct 28, 2021,05:14 FATEMEH EPPS MED STUDENT Oct 27, 2021 13:28 MONI SAWYER DO Oct 28, 2021 05:14
== END 2021-10-27 13:10 | disposition home or self-care (01) | DRG 872 ==
LOC: EDUNIT# 05:13 → ER 05:16 → 4TH 07:19
PROVIDERS: ADMIT Internal Medicine; ATTEND Internal Medicine
DX: A41.9 Sepsis, unspecified organism (principal); N10 Acute pyelonephritis; N20.1 Calculus of ureter; E66.9 Obesity, unspecified; G43.909 Migraine, unspecified, not intractable, without status migrainosus; G89.29 Other chronic pain; M54.9 Dorsalgia, unspecified; E11.9 Type 2 diabetes mellitus without complications; F32.A Depression, unspecified; F17.210 Nicotine dependence, cigarettes, uncomplicated; Z68.37 Body mass index [BMI] 37.0-37.9, adult; Z79.899 Other long term (current) drug therapy
CPT/HCPCS: 36415; 74018; 74176; 80053; 80306; 81000; 83605; 85007; 85025; 85027; 86141; 87040; 87088; 87491; 87591

== ENCOUNTER 2021-11-05 13:19 | Emergency (ER) | payer SELFPAY ==
[~2021-11-05] VITALS: Ht 167 cm; Wt 75.0 kg
[~2021-11-05 13:19] MED LIST changes: +ACET-2267 PO; +ACET500P24 PO; +CEFD300C3 PO; +KETO15CR2 TP; +OXC5T PO; +POLY17PO6 PO
[2021-11-05 14:16] LABS: BASOPHILS # (AUTO) 0.1 10^3/uL (0.0-0.1); BASOPHILS % (AUTO) 0 % (0-10); EOSINOPHILS # (AUTO) 0.2 10^3/uL (0.0-0.3); EOSINOPHILS % (AUTO) 2 % (0-10); HEMATOCRIT 43 % (35-52); HEMOGLOBIN 14.3 g/dL (11.5-16.0); LYMPHOCYTES # (AUTO) 3.8 10^3/uL (1.0-4.0); LYMPHOCYTES % (AUTO) 30 % (12-44); MEAN CORPUSCULAR HEMOGLOBIN 31 pg (25-34); MEAN CORPUSCULAR HGB CONC 34 g/dL (32-36); MEAN CORPUSCULAR VOLUME 92 fL (80-99); MEAN PLATELET VOLUME 8.9 fL (9.0-12.2); MONOCYTES # (AUTO) 0.9 10^3/uL (0.0-1.0); MONOCYTES % (AUTO) 7 % (0-12); NEUTROPHILS # (AUTO) 7.5 10^3/uL (1.8-7.8); NEUTROPHILS % (AUTO) 60 % (42-75); PLATELET COUNT 442 10^3/uL (130-400); WHITE BLOOD COUNT 12.6 10^3/uL (4.3-11.0)
[2021-11-05 14:19] LABS: BILIRUBIN,URINE NEGATIVE (NEGATIVE); CLARITY,URINE CLEAR; COLOR,URINE YELLOW; GLUCOSE, URINE (UA) NEGATIVE (NEGATIVE); KETONES,URINE NEGATIVE (NEGATIVE); LEUKOCYTE ESTERASE ,URINE NEGATIVE (NEGATIVE); NITRITE,URINE NEGATIVE (NEGATIVE); PH,URINE 6.5 (5-9); PROTEIN,URINE NEGATIVE (NEGATIVE)
[2021-11-05 14:24] LABS: BACTERIA,URINE NEGATIVE /HPF; SQUAMOUS EPITHELIAL CELL,UR 0-2 /HPF
[2021-11-05 14:29] LABS: POTASSIUM 4.2 MMOL/L (3.6-5.0)
--- NOTE | 2021-11-05 14:29 | ED GI ---
General Chief Complaint: Abdominal/GI Problems Stated Complaint: LOSS OF TASTE AND SMELL, DIZZY, PAIN ON LEFT SIDE Nursing Triage Note: THE PT IS AMBULATORY TO THE ROOM WITHOUT DIFFICULTY. NO DISTRESS IS SEEN ON ARRIVAL. LOC IS NORMAL FOR THE PT. THE PT C/O ABD PAIN. Source of Information: Patient Exam Limitations: No Limitations History of Present Illness Date Seen by Provider: Nov 05, 2021 Time Seen by Provider: 14:29 Initial Comments to ER with ongoing left flank pain, loss of taste loss of smell. She was admitted about 10 days ago for a left ureteral stone. There was no stenting or lithotripsy done due to concern of interaction between anesthesia and the methamphetamine that she uses regularly. Timing/Duration: 1 Week Severity/Quality: Moderate Location: Flank Radiation: No Radiation Activities at Onset: None Associated Symptoms: Denies Symptoms Allergies and Home Medications Allergies Coded Allergies: codeine (Verified Allergy, Unknown, NAUSEA, 01/10/16) Iodinated Contrast Media (Verified Adverse Reaction, Mild, ITCHING, 12/09/11) Patient Home Medication List Home Medication List Reviewed: Yes Acetaminophen (Tylenol Extra Strength) 500 Mg Tablet, 1,000-1,500 MG PO Q8H PRN for PAIN-MILD (1-4), (Reported) Entered as Reported by: LEON CAMILO on 10/26/21 1144 Cefdinir (Cefdinir) 300 Mg Capsule, 300 MG PO BID Prescribed by: ROMULO SAWYER on 10/27/21 1015 Hydrocodone/Acetaminophen (Hydrocodone-Acetamin 5-325 mg) 1 Each Tablet, 1 TAB PO Q4H PRN for PAIN-MODERATE (5-7) Prescribed by: CHARITY HOOKER on 11/05/21 1454 Ketoconazole (Ketoconazole) 15 Gm Cream..g., 15 GM TP BID Prescribed by: ROMULO SAWYER on 10/27/21 1048 Ondansetron (Ondansetron Odt) 4 Mg Tab.rapdis, 4 MG PO 1000 Prescribed by: ROMULO SAWYER on 10/27/21 1015 Oxycodone Hcl (Oxyir Tablet) 5 Mg Tab, 5 MG PO BID PRN for PAIN-MODERATE (5-7) Prescribed by: ROMULO SAWYER on 10/27/21 1016 Polyethylene Glycol 3350 (Miralax) 17 Gm Powd.pack, 17 GM PO DAILY PRN for CONSTIPATION-2ND LINE, (Reported) Entered as Reported by: LEON CAMILO on 10/26/21 1144 Sulfamethoxazole/Trimethoprim (Bactrim Ds Tablet) 1 Each Tablet, 1 EACH PO BID Prescribed by: CHARITY HOOKER on 11/05/21 1453 Tamsulosin HCl (Flomax) 0.4 Mg Cap, 0.4 MG PO DAILY Prescribed by: CHARITY HOOKER on 11/05/21 1453 Review of Systems Review of Systems Constitutional: see HPI; No chills, No fever EENTM: No Symptoms Reported Respiratory: No Symptoms Reported Cardiovascular: No Symptoms Reported Gastrointestinal: See HPI, Abdominal Pain Genitourinary: No Symptoms Reported Musculoskeletal: no symptoms reported Skin: no symptoms reported Psychiatric/Neurological: No Symptoms Reported Endocrine: No Symptoms Reported Hematologic/Lymphatic: No Symptoms Reported Past Apcyozi-Ldqilv-Sutwyt Hx Immunizations Up To Date Tetanus Booster (TDap): Less than 5yrs First/Initial COVID19 Vaccinat: No Vaccine Second COVID19 Vaccination Praveen: No Vaccine Third COVID19 Vaccination Date: No Vaccine Seasonal Allergies Seasonal Allergies: No Past Medical History Surgery/Hospitalization HX: HYSTERECTOMY Surgeries: Yes (CYST OFF WRIST, CYST OFF OVARY, bowel/bladder reconstruction) Adenoidectomy, Bladder Surgery, Bowel Surgery, Hysterectomy, Tonsillectomy Respiratory: No Cardiac: No Neurological: Yes Headaches /Migraines Reproductive Disorders: No Female Reproductive Disorders: Ovarian Cyst [employer] History: Hysterectomy Genitourinary: Yes Kidney Stones Gastrointestinal: No Musculoskeletal: Yes Degenerate Disk Disease, Back Injury, Chronic Back Pain Endocrine: No Diabetes, Non-Insulin dep HEENT: No Cancer: No Psychosocial: Yes Depression Integumentary: No Blood Disorders: No Family Medical History Alcoholism 19 FATHER 19 MOTHER Arthritis 19 MOTHER GRANDPARENTS Cardiovascular disease GRANDPARENTS Colon cancer GRANDPARENTS Diabetes mellitus 19 MOTHER Drug abuse 19 FATHER 19 MOTHER G8 BROTHER Myocardial infarction GRANDPARENTS No Pertinent Family Hx Physical Exam Vital Signs Vital Signs - First Documented 11/05/21 13:53 Temp 36.7 Pulse 98 Resp 18 B/P (MAP) 107/70 (82) Pulse Ox 95 Capillary Refill : Less Than 3 Seconds Height/Weight/BMI Height: 5'4.00" Weight: 236lbs. 5.0oz. 107.364117iq; 26.00 BMI Method:Stated General Appearance: WD/WN, no apparent distress Respiratory: no respiratory distress, no accessory muscle use Cardiovascular: regular rate, rhythm, no murmur Gastrointestinal: normal bowel sounds, soft Extremities: normal range of motion, non-tender Neurologic/Psychiatric: alert, normal mood/affect, oriented x 3 Skin: normal color, warm/dry Progress/Results/Core Measures Results/Orders Lab Results Laboratory Tests Test 11/05/21 13:50 11/05/21 14:10 Range/Units SARS-CoV-2 RNA (RT-PCR) Not Detected Not Detecte White Blood Count 12.6 H 4.3-11.0 10^3/uL Red Blood Count 4.63 3.80-5.11 10^6/uL Hemoglobin 14.3 11.5-16.0 g/dL Hematocrit 43 35-52 % Mean Corpuscular Volume 92 80-99 fL Mean Corpuscular Hemoglobin 31 25-34 pg Mean Corpuscular Hemoglobin Concent 34 32-36 g/dL Red Cell Distribution Width 12.5 10.0-14.5 % Platelet Count 442 H 130-400 10^3/uL Mean Platelet Volume 8.9 L 9.0-12.2 fL Immature Granulocyte % (Auto) 1 % Neutrophils (%) (Auto) 60 42-75 % Lymphocytes (%) (Auto) 30 12-44 % Monocytes (%) (Auto) 7 0-12 % Eosinophils (%) (Auto) 2 0-10 % Basophils (%) (Auto) 0 0-10 % Neutrophils # (Auto) 7.5 1.8-7.8 10^3/uL Lymphocytes # (Auto) 3.8 1.0-4.0 10^3/uL Monocytes # (Auto) 0.9 0.0-1.0 10^3/uL Eosinophils # (Auto) 0.2 0.0-0.3 10^3/uL Basophils # (Auto) 0.1 0.0-0.1 10^3/uL Immature Granulocyte # (Auto) 0.1 0.0-0.1 10^3/uL Urine Color YELLOW Urine Clarity CLEAR Urine pH 6.5 5-9 Urine Specific Mobile 1.025 H 1.016-1.022 Urine Protein NEGATIVE NEGATIVE Urine Glucose (UA) NEGATIVE NEGATIVE Urine Ketones NEGATIVE NEGATIVE Urine Nitrite NEGATIVE NEGATIVE Urine Bilirubin NEGATIVE NEGATIVE Urine Urobilinogen 0.2 < = 1.0 MG/DL Urine Leukocyte Esterase NEGATIVE NEGATIVE Urine RBC (Auto) NEGATIVE NEGATIVE Urine RBC NONE /HPF Urine WBC NONE /HPF Urine Squamous Epithelial Cells 0-2 /HPF Urine Crystals NONE /LPF Urine Bacteria NEGATIVE /HPF Urine Casts NONE /LPF Urine Mucus NEGATIVE /LPF Urine Culture Indicated NO Urine Test NEGATIVE NEGATIVE Sodium Level 139 135-145 MMOL/L Potassium Level 4.2 3.6-5.0 MMOL/L Chloride Level 103 98-107 MMOL/L Carbon Dioxide Level 23 21-32 MMOL/L Anion Gap 13 5-14 MMOL/L Blood Urea Nitrogen 13 7-18 MG/DL Creatinine 0.68 0.60-1.30 MG/DL Estimat Glomerular Filtration Rate 96 BUN/Creatinine Ratio 19 Glucose Level 115 H 70-105 MG/DL Calcium Level 9.2 8.5-10.1 MG/DL Corrected Calcium 9.2 8.5-10.1 MG/DL Total Bilirubin 0.4 0.1-1.0 MG/DL Aspartate Amino Transf (AST/SGOT) 25 5-34 U/L Alanine Aminotransferase (ALT/SGPT) 89 H 0-55 U/L Alkaline Phosphatase 55 40-136 U/L Total Protein 7.1 6.4-8.2 GM/DL Albumin 4.0 3.2-4.5 GM/DL Urine Opiates Screen NEGATIVE NEGATIVE Urine Oxycodone Screen NEGATIVE NEGATIVE Urine Methadone Screen NEGATIVE NEGATIVE Urine Propoxyphene Screen NEGATIVE NEGATIVE Urine Barbiturates Screen NEGATIVE NEGATIVE Ur Tricyclic Antidepressants Screen NEGATIVE NEGATIVE Urine Phencyclidine Screen NEGATIVE NEGATIVE Urine Amphetamines Screen POSITIVE H NEGATIVE Urine Methamphetamines Screen POSITIVE H NEGATIVE Urine Benzodiazepines Screen NEGATIVE NEGATIVE Urine Cocaine Screen NEGATIVE NEGATIVE Urine Cannabinoids Screen NEGATIVE NEGATIVE My Orders Orders - CHARITY HOOKER APRN Covid 19 Inhouse Test (11/05/21 13:24) Cbc With Automated Diff (11/05/21 13:50) Comprehensive Metabolic Panel (11/05/21 13:50) Ua Culture If Indicated (11/05/21 13:50) Drug Screen Stat (Urine) (11/05/21 13:50) Ketorolac Injection (Toradol Injection) (11/05/21 14:30) Abdomen/Kub 1view (11/05/21 14:23) Hcg,Qualitative Urine (11/05/21 14:30) Medications Given in ED Current Medications Medications Dose Ordered Sig/Blanca Route Start Time Stop Time Status Last Admin Dose Admin Ketorolac Tromethamine 30 mg ONCE ONCE IVP 11/05/21 14:30 11/05/21 14:31 DC 11/05/21 14:30 30 MG Vital Signs/I&O 11/05/21 13:53 Temp 36.7 Pulse 98 Resp 18 B/P (MAP) 107/70 (82) Pulse Ox 95 Blood Pressure Mean: 82 Departure Communication (Admissions) NAME: CONCEPCION HARRISON [facility] REC#: [id number] PT STATUS: REG ER : 1980 PHYSICIAN: CHARITY HOOKER APRN ADMIT DATE: 11/05/21/ER Draft Date of Exam:11/05/21 ABDOMEN/KUB 1VIEW EXAMINATION: Abdominal radiographs, single supine view, 2 images. DATE: November 05, 2021. CLINICAL INDICATION: 41-year-old female, left-sided flank pain. COMPARISON: KUB October 27, 2021. CT abdomen and pelvis October 26, 2021. COMMENTS: There is a calcification projecting just below the left L4 transverse process, which previously was just inferior to the left L3 transverse process on prior KUB. This likely relates to the previously noted left ureteral stone.. There are pelvic calcifications likely reflecting phleboliths. There are gas-filled segments of bowel which are not abnormally distended. There is a moderate volume stool in the right colon and transverse colon. There are facet degenerative changes bilaterally at L4-L5. The upper abdomen is not entirely in the included [id number]. IMPRESSION: 1. Calcification inferior to the left L4 transverse process which previously projected at the level of L3 on the prior KUB. This likely relates to previous seen noted left ureteral stone. 2. Unremarkable bowel gas pattern. Dictated on workstation # [id number] Dict: 11/05/21 1441 Trans: 11/05/21 1448 CV [id number] Interpreted by: ANTHONY JAMES MD Electronically signed by: Impression Primary Impression: Left ureteral stone Disposition: 01 HOME, SELF-CARE Condition: Stable Departure-Patient Inst. Decision time for Depature: 14:51 Referrals: [facility] [place] Primary Care Physician Patient Instructions: Kidney Stones in Adults Add. Discharge Instructions: 1. Meds as directed 2. Return to ER for any concerns 3. Follow-up with your doctor next week. All discharge instructions reviewed with patient and/or family. Voiced understanding. Scripts Hydrocodone/Acetaminophen (Hydrocodone-Acetamin 5-325 mg) 1 Each Tablet 1 TAB PO Q4H PRN for PAIN-MODERATE (5-7), #20 TAB Prov: CHARITY HOOKER APRN 11/05/21 Tamsulosin HCl (Flomax) 0.4 Mg Cap 0.4 MG PO DAILY, #14 CAP Prov: CHARITY HOOKER APRN 11/05/21 Sulfamethoxazole/Trimethoprim (Bactrim Ds Tablet) 1 Each Tablet 1 EACH PO BID, #10 TAB Prov: CHARITY HOOKER APRN 11/05/21 CHARITY HOOKER APRN Nov 05, 2021 14:29
[2021-11-05 14:30] LABS: AMPHETAMINE SCREEN, URINE POSITIVE (NEGATIVE); BARBITURATE SCREEN URINE NEGATIVE (NEGATIVE); BENZODIAZEPINES SCREEN URINE NEGATIVE (NEGATIVE); CALCIUM 9.2 MG/DL (8.5-10.1); CANNABINOID SCREEN, URINE NEGATIVE (NEGATIVE); COCAINE SCREEN URINE NEGATIVE (NEGATIVE); METHADONE STAT NEGATIVE (NEGATIVE); METHAMPHETAMINE SCREEN URINE S POSITIVE (NEGATIVE); OPIATE SCREEN URINE NEGATIVE (NEGATIVE); OXYCODONE STAT NEGATIVE (NEGATIVE); PROPOXYPHENE STAT NEGATIVE (NEGATIVE); TRICYCLIC ANTIDEPRESSANTS SCRE NEGATIVE (NEGATIVE)
[2021-11-05] MEDS ORDERED: KETOROLAC 30 MG/ML VIAL IVP ONE (14:30)
[2021-11-05 14:31] LABS: TOTAL PROTEIN 7.1 GM/DL (6.4-8.2)
[2021-11-05 14:33] LABS: BILIRUBIN,TOTAL 0.4 MG/DL (0.1-1.0)
[2021-11-05 14:35] LABS: CREATININE SERUM 0.68 MG/DL (0.60-1.30)
--- NOTE | 2021-11-05 14:49 | Diagnostic Imaging Report ---
EXAMINATION: Abdominal radiographs, single supine view, 2 images. DATE: November 05, 2021. CLINICAL INDICATION: 41-year-old female, left-sided flank pain. COMPARISON: KUB October 27, 2021. CT abdomen and pelvis October 26, 2021. COMMENTS: There is a calcification projecting just below the left L4 transverse process, which previously was just inferior to the left L3 transverse process on prior KUB. This likely relates to the previously noted left ureteral stone.. There are pelvic calcifications likely reflecting phleboliths. There are gas-filled segments of bowel which are not abnormally distended. There is a moderate volume stool in the right colon and transverse colon. There are facet degenerative changes bilaterally at L4-L5. The upper abdomen is not entirely in the included [id number]. IMPRESSION: 1. Calcification inferior to the left L4 transverse process which previously projected at the level of L3 on the prior KUB. This likely relates to previous seen noted left ureteral stone. 2. Unremarkable bowel gas pattern. Dictated by: Dictated on workstation # [id number]
[2021-11-05] MEDS ORDERED: TMSL.4C PO (14:53)
[2021-11-05] MEDS ORDERED: SULF1TAB38 PO (14:53)
[2021-11-05] MEDS ORDERED: ACHD5005 PO (14:53)
[2021-11-05 15:00] VITALS: BP 107/70
== END 2021-11-05 15:02 | disposition home or self-care (01) ==
LOC: EDUNIT# 13:19 → ER 13:22
DX: N20.1 Calculus of ureter (principal); G89.29 Other chronic pain; E11.9 Type 2 diabetes mellitus without complications; M54.9 Dorsalgia, unspecified; Z20.822 Contact with and (suspected) exposure to COVID-19; Z79.891 Long term (current) use of opiate analgesic
CPT/HCPCS: 36415; 74018; 80053; 80306; 81000; 84703; 85025; 87636; 96374